=== PATIENT | female | born 1995 | race Caucasian/White ===

== ENCOUNTER 2024-07-26 09:01 | Outpatient (OUT) | payer MEDICAID, SELFPAY ==
--- NOTE | 2024-07-26 09:04 | US_ITS ---
[address] [address] Patient Name: PAMELA FRANCIS MRN: [id number] date: 1995 Sex: F Assigned Patient Location: [facility] Current Patient Location: [facility] Accession/Order Number: [id number] Exam Date: 07/26/2024 09:04 Report Date: 07/26/2024 10:34 At the request of: SHIRA OLVERA Procedure: US OB transvaginal EXAMINATION: US OB transvaginal HISTORY: MISSED MENSES COMPARISON: No relevant comparison available. FINDINGS: Transvaginal images Núñez intrauterine gestation Gestational sac: 4.09 cm, 9 weeks 3 days CRL: 2.39 cm, 9 weeks 1 day Yolk sac: 3.8 mm Heart rate: 174 beats minute Cervix: 4.6 cm. The uterus is normal, anteverted, anteflexed Identified in the posterior myometrium is a 1.4 x 0.8 x 1.3 cm area of hypoechogenicity The ovaries are normal Clinical age: 9 weeks 1 day Clinical JACQUIE: 02/27/2025 Ultrasound age: 9 weeks 1 day Ultrasound JACQUIE: 02/27/2025 US/US OB transvaginal IMPRESSION: 1.4 cm. perigestational hematoma Viable núñez intrauterine gestation measuring 9 weeks 1 day Electronically authenticated by: HALLE BELLE Date: 07/26/2024 10:34
== END 2024-07-26 09:02 | disposition home or self-care (01) ==
LOC: NOMS 09:02
PROVIDERS: Visit Provider Obstetrics & Gynecology
DX: Z34.91 Encounter for supervision of normal pregnancy, unspecified, first trimester (principal); Z3A.09 9 weeks gestation of pregnancy; N92.6 Irregular menstruation, unspecified
CPT/HCPCS: 76817

== ENCOUNTER 2024-09-23 21:41 | Outpatient (REF) | payer MEDICAID, SELFPAY ==
--- OUTSIDE RECORDS SUMMARY | 2024-09-23 21:45 | XMS_ITS | CCD ---
Author Organization [facility] Care Team Providers Care Rn On Site Name Role Phone DR SHIRA PASCAL Consulting Unavailable NAIDA, DR SILVA Attending Unavailable NAIDA, DR SILVA Admitting Unavailable VARSHA CABRERA, LA Pugh Primary Care Unavailable VARSHA CABRERA, LA Pugh Attending Unavailable VARSHA CABRERA, LA Pugh Attending Unavailable VARSHA CABRERA, LA Pugh Primary Care Unavailable VARSHA CABRERA, LA Pugh Attending Unavailable VARSHA CABRERA, LA Pugh Primary Care Unavailable FOUZIA, OBIE C Referring Unavailable VARSHA, LA Pugh Primary Care Unavailable VARSHA, LA Pugh Primary Care Unavailable SHIRA PASCAL Referring Unavailable SHIRA PASCAL Referring Unavailable VARSHA, LA Pugh Primary Care Unavailable SHIRA PASCAL Referring Unavailable VARSHA, LA Pugh Primary Care Unavailable Varsha CABRERA, La Pugh Primary Care Provider Minoo Solis Unavailable [phone] SHIRA PASCAL Attending Unavailable SHIRA PASCAL Attending Unavailable Allergies Allergy Classification Reported Allergen(s) Allergy Type Date of Onset Reaction(s) Facility (1 source) Penicillin; Translations: [penicillin] Drug Allergy [facility] Repository (6 sources) Penicillins; Translations: [PENICILLINS] Propensity to adverse reactions to drug (disorder) 7 Itching, Rash, Swelling [facility] Repository (2 sources) Penicillin G Drug Allergy 4 [facility] Medications Current Medications Medication Drug Class(es) Dates Sig (Normalized) Sig (Original) MV-Min-Fe Fum-FA-DHA ( 1 PO) (5 sources) MV-Min- Fe Fum-FA-DHA ( 1 PO) Take 1 each by mouth Daily Active Problems Problem Classification Problem Date Documented Date Episodic/Chronic Immunizations and screening for infectious disease (3 sources) Encounter for screening for human papillomavirus (HPV); Translations: [Exposure to sexually transmissible disorder] Onset: 09-01-2021 09-23-2024 Episodic Menstrual disorders (1 source) Irregular menstruation, unspecified; Translations: [Irregular menstruation, unspecified] Onset: 06-19-2024 Chronic Open wounds of extremities (1 source) Laceration without foreign body of left index finger without damage to nail, initial encounter; Translations: [Laceration without foreign body of left index finger without damage to nail, initial encounter] Onset: 06-18-2024 Episodic Other and delivery including normal (4 sources) Second trimester ; Translations: [Encounter for supervision of normal , unspecified, second trimester] 08-27-2024 Episodic Other screening for suspected conditions (not mental disorders or infectious disease) (6 sources) Encounter for screening for malignant neoplasm of cervix; Translations: [Patient encounter status] Onset: 08-25-2021 Episodic Residual codes; unclassified (2 sources) Gestation period, 13 weeks; Translations: [13 weeks gestation of ] 08-27-2024 Episodic Results Test Name Value Interpretation Reference Range Facility Urinalysis macro (dipstick) panel (U)on 09-23-2024 Bilirubin, UA Negative Negative - 4(70) +++ mg/dL [facility] Blood, UA Negative Negative - 50 Pa/mcL [facility] Clarity, UA Clear [facility] re Color, UA Yellow [facility] e Glucose, UA Negative Negative - 1999(110) ++++ mg/dL [facility] Interpretation and review of laboratory results Normal [facility] Ketones, UA Negative Negative - 160(16) ++++ mg/dL [facility] Leukocytes, UA Negative Negative - 500+++ Varinder/mcL [facility] Nitrite, UA Negative Negative - Positive [facility] pH, UA 6.5 5 - 9 [facility] Protein, UA Negative Negative - 1999(20) ++++ mg/dL [facility] Spec Grav, UA 1.02 1 - 1.03 [facility] Urobilinogen, UA 0.2 0.2 - 12 mg/dL [facility] CBC AND AUTO DIFFon 08-23-20 24 ABSOLUTE BASOPHIL 0.0 X10E9/L Normal 0[facility]0-0.2 [facility] Comment on above: Performed By: #### H A1C, CBCA, 5196-1, 26147-7, 02549-5, 53454-9, 8014-3, 20109-5 #### [facility] ([id number]) [address], [address] [place] [address] ABSOLUTE NEUTROPHIL 7.7 X10E9/L High 1.5-6.6 [facility] Comment on above: Performed By: #### H A1C, CBCA, 5196-1, 20997-3, 19015-8, 83296-1, 8014-3, 05922-6 #### [facility] ([id number]) [address], [address] [place] [address] Basophils/100 WBC (Bld) 0.3 % Normal [facility] Comment on above: Performed By: #### H A1C, CBCA, 5196-1, 20415-6, 41795-5, 01122-8, 8014-3, 30553-8 #### [facility] ([id number]) [address], [address] [place] [address] Eosinophils (Bld) [#/Vol] 0.1 10*3/uL Normal 0.0-0.4 [facility] Comment on above: Performed By: #### H A1C, CBCA, 5196-1, 97042-0, 84631-0, 51549-9, 8014-3, 86897-2 #### [facility] ([id number]) [address], [address] [place] [address] Eosinophils/100 WBC (Bld) 0.9 % Normal [facility] Comment on above: Performed By: #### H A1C, CBCA, 5196-1, 75617-9, 48305-7, 92360-2, 8014-3, 48057-5 #### [facility] ([id number]) [address], [address] [place] [address] Erythrocyte distribution width (RBC) [Ratio] 13.6 % Normal 11.5-15.0 [facility] Comment on above: Performed By: #### H A1C, CBCA, 5196-1, 78615-6, 79086-9, 45737-1, 8014-3, 09052-1 #### [facility] ([id number]) [address], [address] [place] [address] Hematocrit (Bld) [Volume fraction] 35.7 % Normal 35-47 [facility] Comment on above: Performed By: #### H A1C, CBCA, 5196-1, 52371-9, 75134-9, 22367-3, 8014-3, 73386-7 #### [facility] ([id number]) [address], [address] [place] [address] Hemoglobin (Bld) [Mass/Vol] 12.5 g/dL Normal 11.7-15.5 [facility] Comment on above: Performed By: #### H A1C, CBCA, 5196-1, 52276-4, 54604-9, 69198-1, 8014-3, 96298-6 #### [facility] ([id number]) [address], [address] [place] [address] Lymphocytes (Bld) [#/Vol] 1.7 10*3/uL Normal 1.0-3.5 [facility] Comment on above: Performed By: #### H A1C, CBCA, 5196-1, 99394-5, 83065-3, 58201-7, 8014-3, 13122-8 #### [facility] ([id number]) [address], [address] [place] [address] Lymphocytes/100 WBC (Bld) 16.9 % Normal [facility] Comment on above: Performed By: #### H A1C, CBCA, 5196-1, 84595-4, 26758-5, 69964-2, 8014-3, 06656-2 #### [facility] ([id number]) [address], [address] [place] [address] MCH (RBC) [Entitic mass] 31.8 pg Normal 27-34 [facility] Comment on above: Performed By: #### H A1C, CBCA, 5196-1, 59710-3, 48600-2, 43812-1, 8014-3, 32443-4 #### [facility] ([id number]) [address], [address] [place] [address] MCHC (RBC) [Mass/Vol] 35.1 g/dL Normal 32-36 [facility] Comment on above: Performed By: #### H A1C, CBCA, 5196-1, 20413-4, 08400-1, 00400-5, 4-3, 15361-8 #### [facility] ([id number]) [address], [address] [place] [address] MCV (RBC) [Entitic vol] 91 fL Normal 80-100 [facility] Comment on above: Performed By: #### H A1C, CBCA, 5196-1, 00775-7, 23365-9, 95475-7, 4-3, 71433-2 #### [facility] ([id number]) [address], [address] [place] [address] Monocytes (Bld) [#/Vol] 0.6 10*3/uL Normal 0-0.9 [facility] Comment on above: Performed By: #### H A1C, CBCA, 5196-1, 68452-0, 05951-3, 26590-0, 8014-3, 75201-1 #### [facility] ([id number]) [address], [address] [place] [address] Monocytes/100 WBC (Bld) 5.7 % Normal [facility] Comment on above: Performed By: #### H A1C, CBCA, 5196-1, 82863-6, 25336-2, 30679-4, 8014-3, 94421-0 #### [facility] ([id number]) [address], [facility] [address] [place] [address] Neutrophils/100 WBC (Bld) 76.2 % Normal [facility] Comment on above: Performed By: #### H A1C, CBCA, 5196-1, 80648-9, 70127-9, 03421-7, 8014-3, 70845-6 #### [facility] ([id number]) [address], [facility] [address] [place] [address] Platelet mean volume (Bld) [Entitic vol] 10.8 fL Normal 7-12 [facility] Comment on above: Performed By: #### H A1C, CBCA, 5196-1, 38435-7, 30479-8, 34952-8, 8014-3, 37355-1 #### [facility] ([id number]) [address] [address] [place] [address] Platelets (Bld) [#/Vol] 153 10*3/uL Normal 150-450 [facility] Comment on above: Performed By: #### H A1C, CBCA, 5196-1, 17771-9, 87863-8, 42891-1, 8014-3, 88876-0 #### [facility] ([id number]) [address], [facility] [address] [place] [address] RBC COUNT 3.94 X10E12/L Normal 3.80-5.20 [facility] Comment on above: Performed By: #### H A1C, CBCA, 5196-1, 70153-5, 22729-1, 32820-0, 8014-3, 11954-7 #### [facility] ([id number]) [address], [facility] [address] [place] [address] WBC (Bld) [#/Vol] 10.1 10*3/uL Normal 4.0-11.0 [facility] Comment on above: Performed By: #### H A1C, CBCA, 5196-1, 46839-2, 74477-9, 10049-3, 8014-3, 43061-9 #### [facility] ([id number]) [address], [address] [place] [address] DRUG SCREEN, URINEon 024 AMPHETAMINE/METHAMP Negative Normal NEG [facility] Comment on above: Result Comment: AMPH /METH screening cut off = 1000 ng/mL Performed By: #### 2 0415-6 #### [facility] ([id number]) [address], [address] [place] [address] BARBITURATES Negative Normal NEG [facility] Comment on above: Result Comment: Yamileth iturates screening cut off value = 200 ng/mL Performed By: #### 2 0415-6 #### [facility] ([id number]) [address], [address] [place] [address] BENZODIAZEPINES Negative Normal NEG [facility] Comment on above: Result Comment: [place] odiazepines screening cut off value = 200 ng/mL Performed By: #### 2 0415-6 #### [facility] ([id number]) [address], [address] [place] [address] CANNABINOIDS Negative Normal NEG [facility] Comment on above: Result Comment: Kristyn abinoids/THC screening cut off value = 50 ng/mL Performed By: #### 2 0415-6 #### [facility] ([id number]) [address], [address] [place] [address] COCAINE METABOLITE Negative Normal NEG [facility] Comment on above: Result Comment: Coca ine screening cut off value = 300 ng/mL Performed By: #### 2 0415-6 #### [facility] ([id number]) [address], [address] [place] [address] ECSTASY Negative Normal NEG [facility] Comment on above: Result Comment: Ecst asy screening cut off value = 500 ng/mL This report is intended for use in clinical monitoring or management of patients. Performed By: #### 2 0415-6 #### [facility] ([id number]) [address], [address] [place] [address] METHADONE Negative Normal NEG [facility] Comment on above: Result Comment: Meth adone screening cut off value = 300 ng/mL. Performed By: #### 2 0415-6 #### [facility] ([id number]) [address], [address] [place] [address] OPIATES Negative [facility] Comment on above: Result Comment: Opia sabino screening cut off value = 300 ng/mL NOTE: This test is used for the detection of codeine, hydrocodone (>1000 ng/mL), morphine and hydromorphone (>900 ng/mL) in urine. Performed By: #### 2 0415-6 #### [facility] ([id number]) [address], [address] [place] [address] OXYCODONE Negative [facility] Comment on above: Result Comment: Oxyc odone screening cut off value = 300 ng/mL NOTE: This test is used for the detection of oxycodone and oxymorphone in urine. Performed By: #### 2 0415-6 #### [facility] ([id number]) [address], [address] [place] [address] PHENCYCLIDINE Negative Normal [facility] Comment on above: Result Comment: Phen cyclidine screening cut off value = 25 ng/mL Performed By: #### 2 0415-6 #### [facility] ([id number]) [address], [address] [place] [address] HBV surface Ag IA Qlon 08-23 HEPATITIS B SURF AG Negative Normal NEG [facility] Comment on above: Performed By: #### H A1C, CBCA, 5196-1, 99307-8, 42455-6, 02943-5, 8014-3, 19187-3 #### [facility] ([id number]) [address], [address] [place] [address] HCG ( test) Ql (U)o n 08-23-2024 Beta HCG ( test) Ql (U) Positive Abnormal NEG [facility] Comment on above: Performed By: #### 2 106-3 #### [facility] ([id number]) [address] [facility], [address] [place] [address] HCG.beta subunit IA 3rd IS Q non 08-23-2024 HCG.beta subunit Qn 818142 m[IU]/mL Normal [facility] Comment on above: Result Comment: NEW REFERENCE RANGE WEEKS (SINCE LMP) MIU/mL 3 WEEKS 5 - 50 4 WEEKS 5 - 426 5 WEEKS 18 - 7,340 6 WEEKS 1,080 - 56,500 7-8 WEEKS 7,650 - 229,000 9-12 WEEKS 25,700 - 288,000 13-16 WEEKS 13,300 - 254,000 17-24 WEEKS 4,060 - 165,400 25-40 WEEKS 3,640 - 117,000 MALES AND NON- FEMALES - <5 MIU/mL This test has been FDA approved for use in only. Elevated levels are not necessarily diagnostic for trophoblastic or nontrophoblastic neoplasms. Performed By: #### 2 0415-6 #### [facility] ([id number]) [address], [address] [place] [address] HCV Ab IA Qlon 08-23-2024 ANTI HCV W/PCR REFLX Non-Reactive Normal NRCT Pr [facility] Comment on above: Result Comment: If recent infection suspected, recommend repeat testing (>2 months). Ppkzpx-ei-yxfnky ratio is <0.80. Performed By: #### H A1C, CBCA, 5196-1, 08098-1, 02449-3, 74023-7, 8014-3, 64178-6 #### [facility] ([id number]) [address] [place] [address], [address] [place] [address] HGB A1C (GLYCO-HGB)on 2023 Glucose [Mass/Vol] 91 mg/dL Normal [facility] Comment on above: Performed By: #### H A1C, CBCA, 5196-1, 32520-2, 71009-2, 86206-4, 8014-3, 53987-2 #### [facility] ([id number]) [address] [place] [address], [facility] [address] [place] [address] HbA1c (Bld) [Mass fraction] 4.8 % Normal 4.4-5.6 [facility] Comment on above: Result Comment: NOTE ADA Guidelines Result HgbA1c Normal : less than 5.7 % Prediabetes : 5.7 % to 6.4 % Diabetes : > 6.4 % Use with caution in patients with abnormal hemoglobin variants as the half-life of red blood cells and in vivo glycation rates are affected. Performed By: #### H A1C, CBCA, 5196-1, 15504-3, 23895-2, 05582-5, 8014-3, 35745-5 #### [facility] ([id number]) [address] [place] [address], [address] [place] [address] HIV 1+2 Ab+HIV1 p24 Ag IA Ql on 08-23-2024 HIV 1 and 2 Ab/Ag Screen Non-Reactive Normal NRCT [facility] Comment on above: Result Comment: This information has been disclosed to you from confidential records protected from disclosure by state law. You shall make no further disclosure of this information without the specific, written and informed release of the individual to whom it pertains, or as otherwise permitted by state law. A general authorization for the release of medical or other information is not sufficient for the purpose of the release of HIV test results or diagnoses. Performed By: #### H A1C, CBCA, 5196-1, 01486-8, 88441-7, 80517-7, 8014-3, 84397-6 #### [facility] ([id number]) [address] [place] [address], [address] [place] [address] Rubella virus IgG Qn (S)on 1 RUBELLA IgG 16 IU/mL Normal [facility] Comment on above: Result Comment: Interpretation-------- <8 NEGATIVE-considered Not Immune 8-9 EQUIVOCAL-consider retesting with new specimen >9 POSITIVE-considered Immune Performed By: #### 2 0415-6 #### [facility] ([id number]) [address] [place] [address], [facility] [address] [place] [address] T. pallidum IgG+IgM IA Ql (S )on 08-23-2024 Syphilis Total <0.2 Normal 0.0-0.8 [facility] Comment on above: Result Comment: NON REACTIVE No serologic evidence of infection to Treponema pallidum (syphilis). Repeat testing may be considered in patients with suspected acute or primary syphilis in 2 to 4 weeks. Performed By: #### 2 0415-6 #### [facility] ([id number]) [address] [place] [address], [address] [place] [address] URINALYSISon 08-23-2024 Amorphous sediment LM Ql (Urine sed) PRESENT Abnormal NONE [facility] Comment on above: Performed By: #### U A #### [facility] ([id number]) [address] [place] [address], [facility] [address] [place] [address] Bilirubin Ql (U) Negative Normal NEG [facility] Comment on above: Performed By: #### U A #### [facility] ([id number]) [address], [address] [place] [address] BLOOD/HGB Negative Normal NEG [facility] Comment on above: Performed By: #### U A #### [facility] ([id number]) [address], [address] [place] [address] Color (U) ORANGE Abnormal YELLOW [facility] Comment on above: Performed By: #### U A #### [facility] ([id number]) [address], [address] [place] [address] Glucose Ql (U) Negative Normal NEG [facility] Comment on above: Performed By: #### U A #### [facility] ([id number]) [address], [address] [place] [address] Ketones Ql (U) Negative Normal NEG [facility] Comment on above: Performed By: #### U A #### [facility] ([id number]) [address], [address] [place] [address] Leukocyte esterase Test strip Ql (U) Negative Normal NEG [facility] Comment on above: Performed By: #### U A #### [facility] ([id number]) [address], [address] [place] [address] Nitrite Ql (U) Negative Normal NEG [facility] Comment on above: Performed By: #### U A #### [facility] ([id number]) [address], [address] [place] [address] pH (U) 6.5 [pH] Normal 5.0-8.5 [facility] Comment on above: Performed By: #### U A #### [facility] ([id number]) [address], [address] [place] [address] Protein Ql (U) Trace Abnormal NEG [facility] Comment on above: Performed By: #### U A #### [facility] ([id number]) [address] [facility] [address] [place] [address] R.B.CELLS 1 /hpf Normal 0-5 [facility] Comment on above: Performed By: #### U A #### [facility] ([id number]) [address] [place] [address] [address] [place] [address] Specific gravity (U) [Rel density] 1.023 Normal 1.003-1.035 [facility] Comment on above: Performed By: #### U A #### [facility] ([id number]) [address] [facility] [address] [place] [address] SQUAMOUS EPITHELIUM 15 /hpf High 0-5 [facility] Comment on above: Performed By: #### U A #### [facility] ([id number]) [address] [place] [address] [address] [place] [address] TURBIDITY CLOUDY Abnormal CLEAR [facility] Comment on above: Performed By: #### U A #### [facility] ([id number]) [address] [facility] [address] [place] [address] Urobilinogen (U) [Mass/Vol] mg/dL Normal <1.1 [facility] Comment on above: Performed By: #### U A #### [facility] ([id number]) [address] [facility] [address] [place] [address] W.B.CELLS 1 /hpf Normal 0-5 [facility] Comment on above: Performed By: #### U A #### [facility] ([id number]) [address] [facility] [address] [place] [address] URINE CULTUREon 08-23-2024 Bacteria identified Cx Nom (U) CULTURE RESULTS 10-50,000 ORGANISMS/mL NORMAL UROGENITAL FRANCOISE Normal [facility] Comment on above: Performed By: #### 2 0415-6 #### [facility] ([id number]) [address] [place] [address], [address] [place] [address] Outside Recordson 07-30-2024 Outside Records [id number] Normal [facility] HCG.beta subunit IA 3rd IS Q non 06-21-2024 HCG.beta subunit Qn 647 m[IU]/mL Normal [facility] Comment on above: Result Comment: NEW REFERENCE RANGE WEEKS (SINCE LMP) MIU/mL 3 WEEKS 5 - 50 4 WEEKS 5 - 426 5 WEEKS 18 - 7,340 6 WEEKS 1,080 - 56,500 7-8 WEEKS 7,650 - 229,000 9-12 WEEKS 25,700 - 288,000 13-16 WEEKS 13,300 - 254,000 17-24 WEEKS 4,060 - 165,400 25-40 WEEKS 3,640 - 117,000 MALES AND NON- FEMALES - <5 MIU/mL This test has been FDA approved for use in only. Elevated levels are not necessarily diagnostic for trophoblastic or nontrophoblastic neoplasms. Performed By: #### 2 0415-6 #### [facility] ([id number]) [address] [place] [address], [address] [place] [address] HCG.beta subunit IA 3rd IS Q non 06-19-2024 HCG.beta subunit Qn 339 m[IU]/mL Normal [facility] Comment on above: Result Comment: NEW REFERENCE RANGE WEEKS (SINCE LMP) MIU/mL 3 WEEKS 5 - 50 4 WEEKS 5 - 426 5 WEEKS 18 - 7,340 6 WEEKS 1,080 - 56,500 7-8 WEEKS 7,650 - 229,000 9-12 WEEKS 25,700 - 288,000 13-16 WEEKS 13,300 - 254,000 17-24 WEEKS 4,060 - 165,400 25-40 WEEKS 3,640 - 117,000 MALES AND NON- FEMALES - <5 MIU/mL This test has been FDA approved for use in only. Elevated levels are not necessarily diagnostic for trophoblastic or nontrophoblastic neoplasms. Performed By: #### 2 0415-6 #### [facility] ([id number]) [address] [facility], [address] [place] [address] XR FINGER LT 2ND DIGIT MIN 2 VWSon 06-18-2024 XR FINGER LT 2ND DIGIT MIN 2 VWS XR FINGER LT 2ND DIGIT MIN 2 VWS Second digit left hand HISTORY: Injury and pain COMPARISON: None FINDINGS: No acute fractures or dislocations are seen. There are no osteolytic or osteoblastic. IMPRESSION: Negative second digit left hand Finalized by Nichole Zaragoza DO on 06/18/2024 4:14 PM Normal [facility] Ambulatory Patient Summaryon 03-08-2024 Ambulatory Patient Summary [address], [address] - Visit Summary For ALLA FRANCIS Age: 28 years Sex: FEMALE : 1995 Address: [address] [place] [address], [id number] Home: Work: -- Mobile: -- Primary Care Provider: LA MADDOX MD Race: White Ethnicity: Not or Language: Yemeni Health Plan: 1?MEDICAID ANTHEM ODM Reason for Visit: Pt. comes in with complaints of right sided lower back and leg pain Prescription Information: If you have been given a prescription for narcotics, seek immediate medical attention if you have any difficulty breathing or any sudden status changes such as confusion and sleepiness. If you or anyone you know is experiencing suicidal thoughts, mental health, alcohol and/or drug addiction problems; contact the [facility] 29/05 Crisis Hotline -Text 4HOPE to 946427. Follow-Up Information With: Address: When: VARSHA CABRERA, [place] Pugh [facility] [address] [facility] [address] [address]/ [address] [place] [address] , only if needed Future Appointments No Future Appointments Scheduled Future Orders No future orders Additional Goals and Instructions: Vitals and Measurements this Visit (last charted value for your 03/08/2024 visit) Vital Signs This Visit Peripheral Pulse Rate: 78 bpm Pulse Site: Pulse Oximetry Systolic Blood Pressure: 126 mmHg Diastolic Blood Pressure: 74 mmHg Cuff Location: Left arm SpO2: 97 % Measurements This Visit Height/Length Measured: 165 cm Height/Length Measured (inches): 64.96 in Weight Measured: 74 kg Weight Measured (lbs): 163.142 lb Weight Dosin.000 kg BSA: 1.84 m2 Body Mass Index: 27.18 kg/m2 [place] Body Weight Calculated: 56.909 kg BSA Measured: 1.84 m2 Diagnoses This Visit Back pain (M54.9) Laboratory or Other Results This Visit (last charted value for your 03/08/2024 visit) No Laboratory or Other Results This Visit Medications and Immunizations Administered During This Visit No medication administered during this visit All Known Current Prescriptions and Reported Medications New Prescriptions this Visit predniSONE 20 mg oral tablet (predniSONE) Take 1 tab(s)(20 Milligram) Oral (given by mouth) 2 times a day (scheduled) for 7 Days, 0 refills authorized Instructions: with food or milk Prescriptions No previous prescriptions documented Home Medications No reported medications documented Radicular Pain Radicular pain is a type of pain that spreads from your back or neck along a spinal nerve. Spinal nerves are nerves that leave the spinal cord and go to the muscles. Radicular pain is sometimes called radiculopathy, radiculitis, or a pinched nerve. When you have this type of pain, you may also have weakness, numbness, or tingling in the area of your body that is supplied by the nerve. The pain may feel sharp and burning. Depending on which spinal nerve is affected, the pain may occur in the: ? Neck area (cervical radicular pain). You may also feel pain, numbness, weakness, or tingling in the arms. ? Mid-spine area (thoracic radicular pain). You would feel this pain in the back and chest. This type is rare. ? Lower back area (lumbar radicular pain). You would feel this pain as low back pain. You may feel pain, numbness, weakness, or tingling in the buttocks or legs. Sciatica is a type of lumbar radicular pain that shoots down the back of the leg. Radicular pain occurs when one of the spinal nerves becomes irritated or squeezed (compressed). It is often caused by something pushing on a spinal nerve, such as one of the bones of the spine (vertebrae) or one of the round cushions between vertebrae (intervertebral disks). This can result from: ? An injury. ? Wear and tear or aging of a disk. ? The growth of a bone spur that pushes on the nerve. Radicular pain often goes away when you follow instructions from your health care provider for relieving pain at home. How is this treated? Treatment may depend on the cause of the condition and may include: ? Working with a physical therapist. ? Taking pain medicine. ? Applying heat or ice or both to the affected areas. ? Doing stretches to improve flexibility. ? Having surgery. This may be needed if other treatments do not help. Different types of surgery may be done depending on the cause of this condition. Follow these instructions at home: Managing pain ? If directed, put ice on the affected area. To do this: ? Put ice in a plastic bag. ? Place a towel between your skin and the bag. ? Leave the ice on for 20 minutes, 2?3 times a day. ? Remove the ice if your skin turns bright red. This is very important. If you cannot feel pain, heat, or cold, you have a greater risk (more content not included)... Normal [facility] Patient Handouton 03-08-2024 Patient Handout Orthopedics Radicular Pain Radicular pain is a type of pain that spreads from your back or neck along a spinal nerve. Spinal nerves are nerves that leave the spinal cord and go to the muscles. Radicular pain is sometimes called radiculopathy, radiculitis, or a pinched nerve. When you have this type of pain, you may also have weakness, numbness, or tingling in the area of your body that is supplied by the nerve. The pain may feel sharp and burning. Depending on which spinal nerve is affected, the pain may occur in the: ? Neck area (cervical radicular pain). You may also feel pain, numbness, weakness, or tingling in the arms. ? Mid-spine area (thoracic radicular pain). You would feel this pain in the back and chest. This type is rare. ? Lower back area (lumbar radicular pain). You would feel this pain as low back pain. You may feel pain, numbness, weakness, or tingling in the buttocks or legs. Sciatica is a type of lumbar radicular pain that shoots down the back of the leg. Radicular pain occurs when one of the spinal nerves becomes irritated or squeezed (compressed). It is often caused by something pushing on a spinal nerve, such as one of the bones of the spine (vertebrae) or one of the round cushions between vertebrae (intervertebral disks). This can result from: ? An injury. ? Wear and tear or aging of a disk. ? The growth of a bone spur that pushes on the nerve. Radicular pain often goes away when you follow instructions from your health care provider for relieving pain at home. How is this treated? Treatment may depend on the cause of the condition and may include: ? Working with a physical therapist. ? Taking pain medicine. ? Applying heat or ice or both to the affected areas. ? Doing stretches to improve flexibility. ? Having surgery. This may be needed if other treatments do not help. Different types of surgery may be done depending on the cause of this condition. Follow these instructions at home: Managing pain ? If directed, put ice on the affected area. To do this: ? Put ice in a plastic bag. ? Place a towel between your skin and the bag. ? Leave the ice on for 20 minutes, 2?3 times a day. ? Remove the ice if your skin turns bright red. This is very important. If you cannot feel pain, heat, or cold, you have a greater risk of damage to the area. ? If directed, apply heat to the affected area as often as told by your health care provider. Use the heat source that your health care provider recommends, such as a moist heat pack or a heating pad. ? Place a towel between your skin and the heat source. ? Leave the heat on for 20?30 minutes. ? Remove the heat if your skin turns bright red. This is especially important if you are unable to feel pain, heat, or cold. You have a greater risk of getting burned. Activity ? Do not sit or rest in bed for long periods of time. ? Try to stay as active as possible. Ask your health care provider what type of exercise or activity is best for you. ? Avoid activities that make your pain worse, such as bending and lifting. ? You may have to avoid lifting. Ask your health care provider how much you can safely lift. ? Practice using proper technique when lifting items. Proper lifting technique involves bending your knees and rising up. ? Do strength and pnphc-zo-ukqhxt exercises only as told by your health care provider or physical therapist. General instructions ? Take ghbq-swq-lzxltso and prescription medicines only as told by your health care provider. ? Pay attention to any changes in your symptoms. ? Keep all follow-up visits. This is important. Contact a health care provider if: ? Your pain and other symptoms get worse. ? Your pain medicine is not helping. ? Your pain has not improved after a few weeks of home care. ? You have a fever. Get help right away if: ? You have severe pain, weakness, or numbness. ? You have difficulty with bladder or bowel control. Summary ? Radicular pain is a type of pain that spreads from your back or neck along a spinal nerve. ? When you have radicular pain, you may also have weakness, numbness, or tingling in the area of your body that is supplied by the nerve. ? The pain may feel sharp or burning. ? Radicular pain may be treated with ice, heat, medicines, or physical therapy. This information is not intended to replace advice given to you by your health care provider. Make sure you discuss any questions you have with your health care provider. Document Revised: 04/28/2022 Document Reviewed: 04/28/2022 Elsevier Patient Education ? 2022 Quantitative Medicine. [facility] Ambulatory Patient Summary 01-18-2024 Ambulatory Patient Summary [facility] [address] [facility], [facility], [address] - Visit Summary For ALLA FRANCIS Age: 28 years Sex: FEMALE : 1995 Address: [address] [place] [address], [facility] Home: Work: -- Mobile: -- Primary Care Provider: LA MADDOX MD Race: White Ethnicity: Not or Language: Yemeni Health Plan: 1?MEDICAID ANTHEM ODM Reason for Visit: Pt. comes in with complaints of a sore throat / body aches Prescription Information: If you have been given a prescription for narcotics, seek immediate medical attention if you have any difficulty breathing or any sudden status changes such as confusion and sleepiness. If you or anyone you know is experiencing suicidal thoughts, mental health, alcohol and/or drug addiction problems; contact the [facility] 29/05 Crisis Hotline -Text 4HOPE to 511286. Follow-Up Information With: Address: When: LA MADDOX MD [facility] [address] [facility]/ [address] [place] [address] , only if needed Future Appointments No Future Appointments Scheduled Future Orders No future orders Additional Goals and Instructions: Vitals and Measurements this Visit (last charted value for your 01/18/2024 visit) Vital Signs This Visit Temperature Temporal: 37.8 DegC Measurements This Visit Height/Length Measured: 165 cm Height/Length Measured (inches): 64.96 in Weight Measured: 75 kg Weight Measured (lbs): 165.347 lb Weight Dosin.000 kg Body Mass Index: 27.55 kg/m2 [place] Body Weight Calculated: 56.909 kg BSA Measured: 1.85 m2 Diagnoses This Visit Viral URI (J06.9) Laboratory or Other Results This Visit (last charted value for your 01/18/2024 visit) Chemistry 01/18/2024 11:23 AM Influenza B POCT: Negative Influenza A POCT: Negative COVID-19 Testing 01/18/2024 11:23 AM Employed in healthcare?: No Symptomatic as defined by CDC?: Yes Date of onset (Lab):01/19/2024 Hospitalized due to COVID-19?: No In ICU?: No Group care resident?: No status?: Unknown SARS-CoV-2 (COVID-19) Ag (BD Veritor): Not Detected Medications and Immunizations Administered During This Visit No medication administered during this visit All Known Current Prescriptions and Reported Medications New Prescriptions this Visit No new prescriptions for this visit Prescriptions escitalopram 10 mg oral tablet (escitalopram) Instructions: Take 1 tablet by mouth once daily Home Medications No reported medications documented Cough, Adult Coughing is a reflex that clears your throat and your airways (respiratory system). Coughing helps to heal and protect your lungs. It is normal to cough occasionally, but a cough that happens with other symptoms or lasts a long time may be a sign of a condition that needs treatment. An acute cough may only last 2?3 weeks, while a chronic cough may last 8 or more weeks. Coughing is commonly caused by: ? Infection of the respiratory systemby viruses or bacteria. ? Breathing in substances that irritate your lungs. ? Allergies. ? Asthma. ? Mucus that runs down the back of your throat (postnasal drip). ? Smoking. ? Acid backing up from the stomach into the esophagus (gastroesophageal reflux). ? Certain medicines. ? Chronic lung problems. ? Other medical conditions such as heart failure or a blood clot in the lung (pulmonary embolism). Follow these instructions at home: Medicines ? Take zrxv-tjj-jdaflwt and prescription medicines only as told by your health care provider. ? Talk with your health care provider before you take a cough suppressant medicine. Lifestyle ? Avoid cigarette smoke. Do not use any products that contain nicotine or tobacco, such as cigarettes, e-cigarettes, and chewing tobacco. If you need help quitting, ask your health care provider. ? Drink enough fluid to keep your urine pale yellow. ? Avoid caffeine. ? Do not drink alcohol if your health care provider tells you not to drink. General instructions ? Pay close attention to changes in your cough. Tell your health care provider about them. ? Always cover your mouth when you cough. ? Avoid things that make you cough, such as perfume, candles, cleaning products, or campfire or tobacco smoke. ? If the air is dry, use a cool mist vaporizer or humidifier in your bedroom or your home to help loosen secretions. ? If your cough is worse at night, try to sleep in a semi-upright position. ? Rest as needed. ? Keep all follow-up visits as told by your health care provider. This is important. Contact a health care provider if you: ? Have new symptoms. ? Cough up pus. ? Have a cough that does not get better after 2?3 weeks or gets worse. ? Cannot control your cough with cough de la cruz (more content not included)... Normal [facility] Patient Handouton 01-18-2024 Patient Handout ENT Cough, Adult Coughing is a reflex that clears your throat and your airways (respiratory system). Coughing helps to heal and protect your lungs. It is normal to cough occasionally, but a cough that happens with other symptoms or lasts a long time may be a sign of a condition that needs treatment. An acute cough may only last 2?3 weeks, while a chronic cough may last 8 or more weeks. Coughing is commonly caused by: ? Infection of the respiratory systemby viruses or bacteria. ? Breathing in substances that irritate your lungs. ? Allergies. ? Asthma. ? Mucus that runs down the back of your throat (postnasal drip). ? Smoking. ? Acid backing up from the stomach into the esophagus (gastroesophageal reflux). ? Certain medicines. ? Chronic lung problems. ? Other medical conditions such as heart failure or a blood clot in the lung (pulmonary embolism). Follow these instructions at home: Medicines ? Take psha-bhm-gsuvqai and prescription medicines only as told by your health care provider. ? Talk with your health care provider before you take a cough suppressant medicine. Lifestyle ? Avoid cigarette smoke. Do not use any products that contain nicotine or tobacco, such as cigarettes, e-cigarettes, and chewing tobacco. If you need help quitting, ask your health care provider. ? Drink enough fluid to keep your urine pale yellow. ? Avoid caffeine. ? Do not drink alcohol if your health care provider tells you not to drink. General instructions ? Pay close attention to changes in your cough. Tell your health care provider about them. ? Always cover your mouth when you cough. ? Avoid things that make you cough, such as perfume, candles, cleaning products, or campfire or tobacco smoke. ? If the air is dry, use a cool mist vaporizer or humidifier in your bedroom or your home to help loosen secretions. ? If your cough is worse at night, try to sleep in a semi-upright position. ? Rest as needed. ? Keep all follow-up visits as told by your health care provider. This is important. Contact a health care provider if you: ? Have new symptoms. ? Cough up pus. ? Have a cough that does not get better after 2?3 weeks or gets worse. ? Cannot control your cough with cough suppressant medicines and you are losing sleep. ? Have pain that gets worse or pain that is not helped with medicine. ? Have a fever. ? Have unexplained weight loss. ? Have night sweats. Get help right away if: ? You cough up blood. ? You have difficulty breathing. ? Your heartbeat is very fast. These symptoms may represent a serious problem that is an emergency. Do not wait to see if the symptoms will go away. Get medical help right away. Call your local emergency services (911 in the [place] Do not drive yourself to the hospital. Summary ? Coughing is a reflex that clears your throat and your airways. It is normal to cough occasionally, but a cough that happens with other symptoms or lasts a long time may be a sign of a condition that needs treatment. ? Take muyu-qgt-qverovk and prescription medicines only as told by your health care provider. ? Always cover your mouth when you cough. ? Contact a health care provider if you have new symptoms or a cough that does not get better after 2?3 weeks or gets worse. This information is not intended to replace advice given to you by your health care provider. Make sure you discuss any questions you have with your health care provider. Document Revised: 11/11/2019 Document Reviewed: 11/11/2019 [employer] Patient Education ? 2022 Quantitative Medicine. [facility] Outside Recordson 09-25-2023 Outside Records [id number] [facility] PAP ACOG PANEL 2: 21 to 29on 08-30-2021 . . Normal [facility] Comment on above: Performed By: #### [id number] #### [facility] [address] [place] [address] Dr. Jalyn Medrano Age Gdln ACOG Testing 21-29 [facility] Comment on above: Performed By: #### [id number] #### [facility] [address] [place] [address] Dr. Jalyn Medrano DIAGNOSIS: Comment Normal [facility] Comment on above: Result Comment: NEGA TIVE FOR INTRAEPITHELIAL LESION OR MALIGNANCY. Performed By: #### [id number] #### [facility] [address] [place] [address] Dr. Jalyn Medrano Methodology: Comment [facility] Comment on above: Result Comment: This liquid based ThinPrep(R) pap test was screened with the use of an image guided system. Performed By: #### [id number] #### [facility] [address] [place] [address] Dr. Jalyn Medrano Note: Comment [facility] Comment on above: Result Comment: The Pap smear is a screening test designed to aid in the detection of premalignant and malignant conditions of the uterine cervix. It is not a diagnostic procedure and should not be used as the sole means of detecting cervical cancer. Both false-positive and false-negative reports do occur. . Performed By: #### [id number] #### [facility] [address] [place] [address] Dr. Jalyn Medrano Performed by: Comment Normal [facility] Comment on above: Result Comment: Dorothea Francis, [employer] (ASCP) Performed By: #### [id number] #### [facility] [address] [place] [address] Dr. Jalyn Medrano Reflex Criteria: Comment [facility] Comment on above: Result Comment: The HPV DNA reflex criteria were not met with this specimen result therefore, no HPV testing was performed. . Performed By: #### [id number] #### [facility] [address] [place] [address] Dr. Jalyn Medrano Specimen adequacy: Comment Normal [facility] Comment on above: Result Comment: Sati sfactory for evaluation. Endocervical and/or squamous metaplastic cells (endocervical component) are present. Performed By: #### [id number] #### [facility] [address] [place] [address] Dr. Jalyn Medrano Vital Signs Date Time Vital Sign Value Performing Clinician Faci lity 09-23-2024 09:55-0500 Body weight 76.66 kg Shira Naida DO Work Phone: [facility] 09-23-2024 09:55-0500 Diastolic blood pressure 68 mm[Hg] Shira Naida DO Work Phone: [facility] 09-23-2024 09:55-0500 Systolic blood pressure 118 mm[Hg] Shira Naida DO Work Phone: [facility] 08-27-2024 11:12-0400 Body weight 75.66 kg Shira Naida DO Work Phone: [facility] 08-27-2024 11:12-0400 Diastolic blood pressure 64 mm[Hg] Shira Naida DO Work Phone: [facility] 08-27-2024 11:12-0400 Systolic blood pressure 112 mm[Hg] Shira Naida DO Work Phone: [facility] Healthcare Encounters Encounter Date Encounter Type Care Provider Facility Start: 09-23-2024 End: 09-23-2024 Office outpatient visit 15 minutes Shira Naida DO Work Phone: [facility] Comment on above: Well woman exam with routine gynecological exam; Screening, , for anatomic survey; Second trimester ; Exposure to STD Start: 09-23-2024 End: 09-23-2024 Patient encounter procedure Shira Naida DO Work Phone: [facility] Healthcare Start: 08-27-2024 End: 08-27-2024 Bamboo flowsheet Shira Naida DO Work Phone: [facility] Start: 08-27-2024 End: 08-27-2024 Bamboo flowsheet Shira Naida DO Work Phone: [facility] Start: 08-27-2024 End: 08-27-2024 Office outpatient visit 15 minutes Shira Naida DO Work Phone: [facility] Comment on above: Second trimester pre gnancy; 13 weeks gestation of Start: 08-27-2024 End: 08-27-2024 ambulatory SHIRA NAIDA Not Available Start: 08-23-2024 End: 08-23-2024 ambulatory SHIRA R NAIDA [facility] Start: 07-26-2024 End: 07-26-2024 ambulatory SHIRA NAIDA Not Available Start: 06-21-2024 End: 06-21-2024 ambulatory SHIRA R NAIDA [facility] Start: 06-19-2024 End: 06-19-2024 ambulatory [facility] Start: 06-18-2024 End: 06-18-2024 ambulatory OBIE FRAGOSO [facility] Start: 03-08-2024 End: 03-08-2024 ambulatory LA MADDOX MD Facility: [facility] Start: 02-07-2024 End: 02-07-2024 ambulatory SHIRA PASCAL Not Available Start: 01-18-2024 End: 01-18-2024 ambulatory LA MADDOX MD Facility: [facility] Start: 09-19-2023 End: 09-19-2023 ambulatory LA MADDOX MD Facility: [facility] Start: 08-25-2021 End: 08-25-[address] SHIRA PASCAL Facility: Procedures Date Procedure Procedure Detail Performing Clinician Start: 09-23-2024 Urnls dip stick/tabl et rgnt non-auto w/o micrscp Shira Naida DO Work Phone: Plan of Treatment Date Care Activity Detail Author Start: 10-22-2024 End: 10-22-2024 Patient encounter procedure 10/22/2024 10:30 AM EST Routine [facility] [address] [place] [id number] Dorothea Bangura PA [address] [place] [address] [facility] Start: 10-14-2024 End: 10-14-2024 Professional / ancillary services management 10/14/2024 11:00 AM EST Ancillary Procedure [facility] [address] [facility] [place] [id number] [facility] Start: 09-23-2024 End: 10-23-2024 Alpha fetoprotein, maternal Alpha fetoprotein, maternal Lab Routine Screening, , for anatomic survey Expected: 09/23/2024 (Approximate), Expires: 10/23/2024 [facility] Comment on above: Expected: 09/23/2024 (Approximate), Expires: 10/23/2024 Start: 09-23-2024 End: 09-23-2025 US for US OB ANATOMY SINGLE W US OB CERVICAL LENGTH Imaging Routine Screening, , for anatomic survey Expected: 09/23/2024 (Approximate), Expires: 09/23/2025 [facility] Comment on above: Expected: 09/23/2024 (Approximate), Expires: 09/23/2025 Start: 09-23-2024 End: 09-23-2024 Patient encounter procedure 09/23/2024 9:30 AM EST Routine [facility] [address] [facility] [place] [id number] Shira Pascal, DO [address] [place] [address] [facility] Start: 08-27-2024 End: 08-27-2024 Patient encounter procedure 08/27/2024 10:50 AM EDT Routine [facility] [address] [place] [id number] Shira Pascal, DO [address] [place] [place] [address] Arrived [facility] Comment on above: Arrived Start: 07-07-2024 Influenza vaccination Influenza Vacc ine (#1) [facility] Start: 2024 Screening for malign ant neoplasm of cervix [facility] Start: 2015 Screening for malign ant neoplasm of cervix Pap Smear [facility] CHLAMYDIA TRACHOMATI S (GENITO/STI) CHLAMYDIA TRACHOMATIS (GENITO/STI) Lab Routine Exposure to STD Ordered: 09/23/2024 [facility] Comment on above: Ordered: 09/23/2024 Cytology Cervical or vaginal smear or scraping study Pap Smear Pathology and Cytology Routine Well woman exam with routine gynecological exam Ordered: 09/23/2024 [facility] Work Phone: Comment on above: Ordered: 09/23/2024 Human papilloma viru s DNA [Presence] in Unspecified specimen by Probe with amplification HPV DNA probe, amplified Microbiology Routine Well woman exam with routine gynecological exam Ordered: 09/23/2024 [facility] Comment on above: Ordered: 09/23/2024 Neisseria gonorrhoea e DNA [Presence] in Unspecified specimen by MICHELLE with probe detection Neisseria gonorrhea DNA probe, direct Lab Routine Exposure to STD Ordered: 09/23/2024 [facility] Comment on above: Ordered: 09/23/2024 SURESWAB(R) ADVANCED VAGINITIS PLUS, TMA SURESWAB(R) ADVANCED VAGINITIS PLUS, TMA Pathology and Cytology Routine Exposure to STD Ordered: 09/23/2024 [facility] Comment on above: Ordered: 09/23/2024 Payers Date Payer Category Payer Medicaid [employer] [place] [id number] 2022 Medicaid [id number] 1995 Unknown [id number] 1994 Unknown [id number] 1994 Unknown [id number] [id number] 1994 Unknown [id number] 1994 Unknown [id number] 2.16.840.1.605004.3.579.2.1286 1994 Unknown [id number] 2.16.840.1.779218.3.579.2.1286 1994 Unknown [id number] 2.16.840.1.293525.3.579.2.1286 1994 Unknown [id number] 2.16.840.1.034281.3.579.2.6 1994 Unknown [id number] 2.16.840.1.096059.3.579.2.9 1994 Unknown [id number] 2.16.840.1.465504.3.579.2.9 1994 Unknown [id number] [id number] 1959 Unknown [id number] Social History Date Type Detail Facility Tobacco smoking stat [facility] Tobacco smoking consumption unknown [facility] Start: 06-06-2024 [facility] Start: 1995 Sex assigned at Not on file [facility] Gender identity Not [facility] History of Present illness Narrative 09-23-2024 Ajnana Goins LPN - 09/23/2024 9:30 AM EST Note Date & Type Note Facility 09-23-2024 History of Presen t illness Narrative Reason for Appointment: Patient ID: Alla Francis is a 29 y.o. female who presents for Routine Visit Patient presents today for Annual Exam. and Return OB appointment. MEDICATIONS Current Outpatient Medications Medication Instructions MV-Min-Fe Fum-FA-DHA ( 1 PO) 1 each, Oral, Daily ALLERGIES Allergies Allergen Reactions Penicillins Itching, Rash and Swelling Penicillin G PROBLEMS Active Ambulatory Problems Diagnosis Date Noted No Active Ambulatory Problems Resolved Ambulatory Problems Diagnosis Date Noted No Resolved Ambulatory Problems No Additional Past Medical History HISTORY PAST MEDICAL HISTORY SOCIAL HISTORY No past medical history on file. Social History Tobacco Use Smoking status: Not on file Smokeless tobacco: Not on file Substance Use Topics Alcohol use: Not on file Drug use: Not on file FAMILY HISTORY No family history on file. SURGICAL HISTORY No past surgical history on file. REVIEW OF SYSTEMS Review of Systems: Review of Systems All other systems reviewed and are negative. OBJECTIVE Objective: Physical Exam Constitutional: Appearance: Normal appearance. She is well-developed. Genitourinary: Vulva normal. Breasts: Breasts are soft. Right: Normal. Left: Normal. Cardiovascular: Rate and Rhythm: Normal rate and regular rhythm. Pulmonary: Effort: Pulmonary effort is normal. Breath sounds: Normal breath sounds. Abdominal: General: Bowel sounds are normal. There is no distension. Palpations: Abdomen is soft. Tenderness: There is no abdominal tenderness. There is no guarding or rebound. Musculoskeletal: General: No swelling. Normal range of motion. Right lower leg: No edema. Left lower leg: No edema. Neurological: Mental Status: She is alert and oriented to person, place, and time. Skin: General: Skin is warm and dry. Psychiatric: Mood and Affect: Mood normal. Behavior: Behavior normal. Vitals and nursing note reviewed. Exam conducted with a certified addiction counselor present. Vitals: There is no height or weight on file to calculate BMI. BP: 118/68 Patient's last menstrual period was 05/23/2024. ASSESSMENT & PLAN ICD-10-CM 1. Well woman exam with routine gynecological exam Z01.419 Pap Smear HPV DNA probe, amplified 2. Screening, , for anatomic survey Z36.89 Alpha fetoprotein, maternal US OB ANATOMY SINGLE W US OB CERVICAL LENGTH Alpha fetoprotein, maternal 3. Second trimester Z34.92 POCT urinalysis dipstick manually resulted 4. Exposure to STD Z20.2 SURESWAB(R) ADVANCED VAGINITIS PLUS, TMA CHLAMYDIA TRACHOMATIS (GENITO/STI) Neisseria gonorrhea DNA probe, direct Return OB/Annual Exam: Patient presents today for an annual exam/routine obstetrics appointment. Patient is currently 17w4d . Patient is doing well and states she has no complaints. Pap/cultures was obtained without difficulty and patient was given [facility] order to have obtained. Orders Placed This Encounter Procedures HPV DNA probe, amplified US OB ANATOMY SINGLE W US OB CERVICAL LENGTH CHLAMYDIA TRACHOMATIS (GENITO/STI) Neisseria gonorrhea DNA probe, direct Alpha fetoprotein, maternal POCT urinalysis dipstick manually resulted Follow Up: Patient is to return to our office in 4 weeks for routine OB appointment Documented by Anjana Goins LPN on behalf of: Shira Pascal DO documented in this encounter [facility] History of Present illness Narrative 08-27-2024 Shira Pascal DO - 08/27/2024 10:50 AM EDT Note Date & Type Note Facility 08-27-2024 History of Presen t illness Narrative Reason for Appointment: Patient ID: Alla Francis is a 29 y.o. female who presents for Routine Visit Patient presents today for Return OB appointment. MEDICATIONS Current Outpatient Medications Medication Instructions MV-Min-Fe Fum-FA-DHA ( 1 PO) 1 each, Oral, Daily ALLERGIES Allergies Allergen Reactions Penicillins Itching, Rash and Swelling PROBLEMS Active Ambulatory Problems Diagnosis Date Noted No Active Ambulatory Problems Resolved Ambulatory Problems Diagnosis Date Noted No Resolved Ambulatory Problems No Additional Past Medical History HISTORY PAST MEDICAL HISTORY SOCIAL HISTORY History reviewed. No pertinent past medical history. Social History Tobacco Use Smoking status: Not on file Smokeless tobacco: Not on file Substance Use Topics Alcohol use: Not on file Drug use: Not on file FAMILY HISTORY No family history on file. SURGICAL HISTORY History reviewed. No pertinent surgical history. REVIEW OF SYSTEMS Review of Systems: Review of Systems Constitutional: Negative. HENT: Negative. Eyes: Negative. Respiratory: Negative. Cardiovascular: Negative. Gastrointestinal: Negative. Genitourinary: Negative. Musculoskeletal: Negative. Skin: Negative. Neurological: Negative. All other systems reviewed and are negative. Hematological: Negative. Endocrine: Negative. Allergic/Immunologic: Negative. OBJECTIVE Objective: Physical Exam Constitutional: Appearance: Normal appearance. She is well-developed. Cardiovascular: Rate and Rhythm: Normal rate and regular rhythm. Pulmonary: Effort: Pulmonary effort is normal. Breath sounds: Normal breath sounds. Abdominal: General: Bowel sounds are normal. There is no distension. Palpations: Abdomen is soft. Tenderness: There is no abdominal tenderness. There is no guarding or rebound. Musculoskeletal: General: No swelling. Normal range of motion. Right lower leg: No edema. Left lower leg: No edema. Neurological: Mental Status: She is alert and oriented to person, place, and time. Skin: General: Skin is warm and dry. Psychiatric: Mood and Affect: Mood normal. Behavior: Behavior normal. Vitals and nursing note reviewed. Exam conducted with a certified addiction counselor present. Vitals: There is no height or weight on file to calculate BMI. BP: 112/64 Patient's last menstrual period was 05/23/2024. ASSESSMENT & PLAN ICD-10-CM 1. Second trimester Z34.92 2. 13 weeks gestation of Z3A.13 New OB: Patient presents today for 1st time obstetrics appointment with provider. Patient is currently 13w5d . Patients history has been reviewed in great detail including any potential risks. Patient stated she currently has no complaints. Expectations throughout regarding labs, ultrasounds, and appointments have been discussed with the patient in detail. It was reiterated that the patient is to drink 6-8 glasses of water a day, eat 6 small meals a day, do not consume raw or undercooked meat, and stay away from [facility]. Patient has been consulted regarding any further do's and don'ts of . Patient voiced understanding and all questions and concerns were answered. Follow Up: Patient is to return in 4 weeks for routine OB appointment. Documented by Cleo Kevin LPN on behalf of: Shira Pascal DO documented in this encounter [facility] Clinical Note 09-19-2023 Note Date & Type Note Facility 09-19-2023 Note Prevent the Spread o f COVID-19 if You Are Sick If you are sick with COVID-19 or think you might have COVID-19, follow the steps below to care for yourself and to help protect other people in your home and community. Stay home except to get medical care. ? Stay home. Most people with COVID-19 have mild illness and are able to recover at home without medical care. Do not leave your home, except to get medical care. Do not visit public areas. ? Take care of yourself. Get rest and stay hydrated. Take ltaj-ndn-fvahfyo medicines, such as acetaminophen, to help you feel better. ? Stay in touch with your doctor. Call before you get medical care. Be sure to get care if you have trouble breathing, or have any other emergency warning signs, or if you think it is an emergency. ? Avoid public transportation, ride-sharing, or taxis. Separate yourself from other people and pets in your home. ? As much as possible, stay in a specific room and away from other people and pets in your home. Also, you should use a separate bathroom, if available. If you need to be around other people or animals in or outside of the home, wear a mask. ? See COVID-19 and Animals if you have questions about pets:www.cdc.gov/coronavirus/2019-ncov/faq.html#CO SYA62zmwcspb. ? Additional guidance is available for those living in close quarters. (https://www.cdc.gov/coronavirus/2019-ncov/daily-l alec-coping/kxvkxe-pk-bkpfk-quarters.html) and shared housing (https://www.cdc.gov/coronavirus/2019-ncov/daily-l alec-coping/shared-housing/index.html). Monitor your symptoms. ? Symptoms of COVID-19 include fever, cough, and shortness of breath but other symptoms may be present as well. ? Follow care instructions from your healthcare provider and local health department. Your local health authorities will give instructions on checking your symptoms and reporting information. When to Seek Emergency Medical Attention Look for emergency warning signs* for COVID-19. If someone is showing any of these signs, seek emergency medical care immediately: ? Trouble breathing ? Persistent pain or pressure in the chest ? New confusion ? Bluish lips or face ? Inability to wake or stay awake *This list is not all possible symptoms. Please call your medical provider for any other symptoms that are severe or concerning to you. Call 911 or call ahead to your local emergency facility: Notify the pelletising extruder operator that you are seeking care for someone who has or may have COVID-19. Call ahead before visiting your doctor. ? Call ahead. Many medical visits for routine care are being postponed or done by phone or telemedicine. ? If you have a medical appointment that cannot be postponed, call your doctor's office, and tell them you have or may have COVID-19. If you are sick, wear a mask over your nose and mouth. ? You should wear a mask over your nose and mouth if you must be around other people or animals, including pets (even at home). ? You don't need to wear the mask if you are alone. If you can't put on a mask (because of trouble breathing for example), cover your coughs and sneezes in some other way. Try to stay at least 6 feet away from other people. This will help protect the people around you. ? Masks should not be placed on young children under age 2 years, anyone who has trouble breathing, or anyone who is not able to remove the mask without help. Note: During the COVID-19 pandemic, medical grade facemasks are reserved for healthcare workers and some first responders. You may need to make a mask using a scarf or bandana. Cover your coughs and sneezes. ? Cover your mouth and nose with a tissue when you cough or sneeze. ? Throw used tissues in a lined trash can. ? Immediately wash your hands with soap and water for at least 20 seconds. If soap and water are not available, clean your hands with an alcohol-based hand weighbridge operator that contains at least 60% alcohol. Clean your hands often. ? Wash your hands often with soap and water for at least 20 seconds. This is especially important after blowing your nose, coughing, or sneezing; going to the bathroom; and before eating or preparing food. ? Use hand weighbridge operator if soap and water are not available. Use an alcohol-based hand weighbridge operator with at least 60% alcohol, covering all surfaces of your hands and rubbing them together until they feel dry. ? Soap and water are the best option, especially if your hands are visibly dirty. ? Avoid touching your eyes, nose, and mouth with unwashed hands. Avoid sharing personal household items. ? Do not share dishes, drinking glasses, cups, eating utensils, towels, or bedding with other people in your home. ? Wash these items thoroughly after using them with soap and water or put them in the surgical elastic knitter hand frame. Clean all high-touch surfaces everyday. ? Clean and disinfect high-touch surfaces in your sick room and bathroom. Let someone else clean and disinfect surfaces in common areas, but not your bedroom and bathroom. ? If a care (more content not included)... [facility] Evaluation note Note Date & Type Note Facility Evaluation note Diagnosis Second trimester state, incidental 13 weeks gestation of documented in this encounter [facility] Evaluation note Note Date & Type Note Facility Evaluation note Diagnosis Well woman exam with routine gynecological exam Routine gynecological examination Screening, , for anatomic survey Encounter for anatomic survey Second trimester state, incidental Exposure to STD documented in this encounter [facility] Summary Purpose Family History No Family History Records FoundNo Family History Records FoundNo Family History Records FoundNo Family History Records Found Advance Directives No Advanced Directives Records FoundNo Advanced Directives Records FoundNo Advanced Directives Records FoundNo Advanced Directives Records Found Additional Source Comments INFORMATION SOURCE (unrecogn ized section and content) DATE CREATED AUTHOR 09/11/2021 [facility] DATE CREATED AUTHOR AUTHOR'S ORGANIZ ATION 08/01/2024 [facility] DATE CREATED AUTHOR AUTHOR'S ORGANIZ ATION 08/26/2024 [facility] DATE CREATED AUTHOR AUTHOR'S ORGANIZ ATION 08/29/2024 [facility] EPIC Care Teams (unrecognized sec tion and content) Rn On Site Relationship Specialty Start Date End Date La Maddox MD [address] [place] [id number] PCP - General Family Medicine 02/05/24 Minoo Flores PA [address] [place] [address] PCP - DANIELA England [facility] 05/06/24 Rn On Site Relationship Specialty Start Date End Date La Maddox MD [address] [place] [id number] PCP - General Family Medicine 02/05/24 Minoo Flores PA [address] [place] [address] PCP - DANIELA England [facility] 05/06/24 Rn On Site Relationship Specialty Start Date End Date La Maddox MD [address] [place], [place] [phone] PCP - General Family Medicine 02/05/24 Minoo Flores PA [address] [place] [address] PCP Marguerite England [facility] 05/06/24 Reason for Visit (unrecogniz ed section and content) Reason Comments Routine Visit FOR RECORDS PERTAINING TO PATIENTS WHO ARE OR HAVE BEEN ENROLLED IN A CHEMICAL DEPENDENCY/SUBSTANCEABUSE PROGRAM, SOME INFORMATION MAY BE OMITTED. This clinical summary was aggregated from multiple sources. Caution should be exercised in using it in the provision of clinical care. This summary normalizes information from multiple sources, and as a consequence, information in this document may materially change the coding, format and clinical context of patient data. In addition, data may be omitted in some cases. CLINICAL DECISIONS SHOULD BE BASED ON THE PRIMARY CLINICAL RECORDS. [facility]. provides no warranty or guarantee of the accuracy or completeness of information in this document.
== END 2024-09-23 21:42 | disposition home or self-care (01) ==
LOC: LAB 21:41
PROVIDERS: Visit Provider Obstetrics & Gynecology
DX: Z01.419 Encounter for gynecological examination (general) (routine) without abnormal findings (principal)
CPT/HCPCS: 87624; 88175

== ENCOUNTER 2024-10-14 11:04 | Outpatient (OUT) | payer MEDICAID, SELFPAY ==
--- NOTE | 2024-10-14 | US_ITS ---
[address] [address] Patient Name: PAMELA FRANCIS MRN: [facility]:[id number] date: 1995 Sex: F Assigned Patient Location: [facility] Current Patient Location: [facility] Accession/Order Number: [id number] Exam Date: 10/14/2024 11:11 Report Date: 10/14/2024 14:22 At the request of: SHIRA OLVERA Procedure: US OB cervical length EXAMINATION: US OB anatomy, US OB cervical length HISTORY: ANATOMY COMPARISON: Ultrasound OB transvaginal 07/26/2024 TECHNIQUE: Transabdominal sonographic examination was performed for obstetrical and evaluation. FINDINGS: Number: 1 Heart Rate: 138 bpm Amniotic Fluid Volume: Subjectively normal. Placental Location: POSTERIOR with lower margin 4.1 cm from os. Cervix Length: Funneling at the internal os, 0.5 cm in diameter extending 1.3 cm into the cervical canal. Close length of cervix is 2.8 cm which decreases to 2.4 cm during Valsalva. ANATOMY: Normal Structures -cerebellum, choroid plexus, cisterna magna, lateral cerebral ventricles, orbits, midline falx, hard palate, four-chamber heart, RVOT, LVOT, stomach, kidneys, bladder, umbilical cord insertion into abdomen, three-vessel cord, cervical spine, thoracic spine, lumbar spine, sacral spine, right upper extremity, left upper extremity, right lower extremity, left lower extremity. SUBOPTIMALLY SEEN: None ABNORMALITIES: None BIOMETRY: BPD: 5.25 cm; 22 weeks 0 days; 92.30 % HC: 18.77 cm; 21 weeks 1 day; 64.70 % AC: 14.48 cm; 19 weeks 6 days; 20.20 % FL: 3.58 cm; 21 weeks 2 days; 68.60 % EFW:368.66 g; 47.40 % FL/AC: 24.72 FL/BPD: 68.19 HC/AC: 1.30 GESTATIONAL AGE: Age by EDC: 20 weeks 4 days Age by current US: 21 weeks 1 day JACQUIE by current US: 2025-02-23 JACQUIE by EDC: 2025-02-27 US/US OB cervical length IMPRESSION: 1. Single live intrauterine with growth detailed above. 2. Funneling of the cervix at the internal os as detailed above. Close length of cervix is 2.8 cm at rest which decreases to 2.4 cm during Valsalva. Electronically authenticated by: JOHN STOKES Date: 10/14/2024 14:22
--- NOTE | 2024-10-14 | US_ITS ---
[address] [address] Patient Name: PAMELA FRANCIS MRN: [facility]:[id number] date: 1995 Sex: F Assigned Patient Location: [facility] Current Patient Location: [facility] Accession/Order Number: [id number] Exam Date: 10/14/2024 11:11 Report Date: 10/14/2024 14:22 At the request of: SHIRA OLVERA Procedure: US OB anatomy EXAMINATION: US OB anatomy, US OB cervical length HISTORY: ANATOMY COMPARISON: Ultrasound OB transvaginal 07/26/2024 TECHNIQUE: Transabdominal sonographic examination was performed for obstetrical and evaluation. FINDINGS: Number: 1 Heart Rate: 138 bpm Amniotic Fluid Volume: Subjectively normal. Placental Location: POSTERIOR with lower margin 4.1 cm from os. Cervix Length: Funneling at the internal os, 0.5 cm in diameter extending 1.3 cm into the cervical canal. Close length of cervix is 2.8 cm which decreases to 2.4 cm during Valsalva. ANATOMY: Normal Structures -cerebellum, choroid plexus, cisterna magna, lateral cerebral ventricles, orbits, midline falx, hard palate, four-chamber heart, RVOT, LVOT, stomach, kidneys, bladder, umbilical cord insertion into abdomen, three-vessel cord, cervical spine, thoracic spine, lumbar spine, sacral spine, right upper extremity, left upper extremity, right lower extremity, left lower extremity. SUBOPTIMALLY SEEN: None ABNORMALITIES: None BIOMETRY: BPD: 5.25 cm; 22 weeks 0 days; 92.30 % HC: 18.77 cm; 21 weeks 1 day; 64.70 % AC: 14.48 cm; 19 weeks 6 days; 20.20 % FL: 3.58 cm; 21 weeks 2 days; 68.60 % EFW:368.66 g; 47.40 % FL/AC: 24.72 FL/BPD: 68.19 HC/AC: 1.30 GESTATIONAL AGE: Age by EDC: 20 weeks 4 days Age by current US: 21 weeks 1 day JACQUIE by current US: 2025-02-23 JACQUIE by EDC: 2025-02-27 US/US OB anatomy IMPRESSION: 1. Single live intrauterine with growth detailed above. 2. Funneling of the cervix at the internal os as detailed above. Close length of cervix is 2.8 cm at rest which decreases to 2.4 cm during Valsalva. Electronically authenticated by: JOHN STOKES Date: 10/14/2024 14:22
== END 2024-10-14 11:05 | disposition home or self-care (01) ==
LOC: NOMS 11:04
PROVIDERS: Visit Provider Obstetrics & Gynecology
DX: Z36.89 Encounter for other specified antenatal screening (principal); Z3A.20 20 weeks gestation of pregnancy
CPT/HCPCS: 76805; 76817

== ENCOUNTER 2024-10-28 08:04 | Outpatient (OUT) | payer MEDICAID, SELFPAY ==
--- NOTE | 2024-10-28 08:08 | US_ITS ---
The [address] [address] Patient Name: PAMELA FRANCIS MRN: [id number] date: 1995 Sex: F Assigned Patient Location: [facility] Current Patient Location: [facility] Accession/Order Number: [id number] Exam Date: 10/28/2024 08:10 Report Date: 10/28/2024 09:10 At the request of: KOSTA BLEVINS Procedure: US OB cervical length EXAMINATION: US OB cervical length HISTORY: CERVICAL FUNNELING COMPARISON: 10/14/2024 FINDINGS: There is funneling of the cervix. The entire cervix measures 3.4 cm in length with the closed portion measuring only 1 cm in length. position: Cephalic US/US OB cervical length IMPRESSION: Funneling of the internal cervical os is closed portion the cervix measuring 1.0 cm in length Electronically authenticated by: HALLE BELLE Date: 10/28/2024 09:10
--- OUTSIDE RECORDS SUMMARY | 2024-10-28 08:22 | XMS_ITS | CCD ---
Author Organization [facility] CliniSyal Care Team Providers Care Major Assembly Inspector Name Role Phone DR SHIRA PASCAL Consulting Unavailable NAIDA, DR SILVA Attending Unavailable NAIDA, DR SILVA Admitting Unavailable FOUZIA, OBIE C Referring Unavailable LA MADDOX Primary Care Unavailable LA MADDOX Primary Care Unavailable SHIRA PASCAL Referring Unavailable SHIRA PASCAL Referring Unavailable LA MADDOX Primary Care Unavailable SHIRA PASCAL Referring Unavailable LA MADDOX Primary Care Unavailable Varsha CABRERA, La Pugh Primary Care Provider [phone] Minoo Solis Unavailable [phone] LA MADDOX MD Primary Care Unavailable LA MADDOX MD Attending Unavailable VARSHA CABRERA, LA Pugh Primary Care Unavailable AL MADDOX MD Attending Unavailable DOROTHEA BLEVINS Attending Unavailable SHIRA PASCAL Attending Unavailable SHIRA PASCAL Attending Unavailable SHIRA PASCAL Attending Unavailable Allergies Allergy Classification Reported Allergen(s) Allergy Type Date of Onset Reaction(s) Facility (11 sources) Penicillins; Translations: [PENICILLINS] Propensity to adverse reactions to drug (disorder) 7 Itching, Rash, Swelling [facility] Repository (5 sources) Penicillin G Drug Allergy 4 [facility] (1 source) Penicillin; Translations: [penicillin] Drug Allergy [facility] Repository Medications Current Medications Medication Drug Class(es) Dates Sig (Normalized) Sig (Original) ondansetron 4 mg disintegrating oral tablet (1 source) Serotonin-3 Receptor Antagonist Start: 07-26-2024 End: 08-25-2024 take 1 tablet by mouth every six hours as needed for nausea and vomiting and nausea and nausea ondansetron ODT (Zofran-ODT) 4 MG disintegrating tablet Indications: Nausea Take 1 tablet (4 mg) by mouth every 6 (six) hours if needed for nausea or vomiting 30 tablet 2 07/26/2024 08/25/2024 Active MV-Min-Fe Fum-FA-DHA ( 1 PO) (10 sources) MV-Min- Fe Fum-FA-DHA ( 1 PO) Take 1 each by mouth Daily Active Progesterone 200 MG suppository (2 sources) Start: 10-15-2024 End: 11-14-2024 Progesterone 200 MG suppository Indications: Cervical shortening affecting Insert 200 mg into the vagina at bedtime 30 suppository 4 10/15/2024 11/14/2024 Active terconazole 4 mg/ml vaginal cream (2 sources) Azole Antifungal Start: 10-21-2024 End: 10-28-2024 terconazole (Terazol 7) 0.4 % vaginal cream Indications: Yeast infection Insert 1 applicator into the vagina at bedtime for 7 days 45 g 10/21/2024 10/28/2024 Active Problems Active Problems Problem Classification Problem Date Documented Date Episodic/Chronic Immunizations and screening for infectious disease (3 sources) Encounter for screening for human papillomavirus (HPV); Translations: [Exposure to sexually transmissible disorder] Onset: 09-01-2021 09-23-2024 Episodic Menstrual disorders (2 sources) Irregular menstruation, unspecified; Translations: [Missed period] Onset: 06-19-2024 07-26-2024 Chronic Open wounds of extremities (1 source) Laceration without foreign body of left index finger without damage to nail, initial encounter; Translations: [Laceration without foreign body of left index finger without damage to nail, initial encounter] Onset: 06-18-2024 Episodic Other complications of (2 sources) Short cervical length in ; Translations: [Cervical shortening, unspecified trimester] Onset: 10-14-2024 10-14-2024 Episodic Other and delivery including normal (7 sources) Second trimester ; Translations: [Encounter for supervision of normal , unspecified, second trimester] 08-27-2024 Episodic Other screening for suspected conditions (not mental disorders or infectious disease) (7 sources) Encounter for screening for malignant neoplasm of cervix; Translations: [Patient encounter status] Onset: 08-25-2021 Episodic Residual codes; unclassified (2 sources) Gestation period, 13 weeks; Translations: [13 weeks gestation of ] 08-27-2024 Episodic Residual codes; unclassified (1 source) Gestation period, 21 weeks; Translations: [21 weeks gestation of ] 10-22-2024 Episodic Past or Other Problems Problem Classification Problem Date Documented Da te Episodic/Chronic Nausea and vomiting (1 source) Nausea; Translations: [Nausea] 07-26-2024 Episodic Results Test Name Value Interpretation Reference Range Facility Outside Recordson 10-15-2024 Outside Records [id number] .[id number] [facility] IGP,APTIMA HPV,AGE GDLNon AGE GDLN ACOG TESTING Note . [facility] Comment on above: TESTS RESULT FLAG UN ITS REF RANGE LAB Clinician Provided Cytology Information Source.............Cervix No. of containers..01 ThinPrep Vial Age Algo ACOG Sabino... 30-65 01 FLAG LEGEND: L-Low Normal,H-High Normal,LL-Alert Low,HH-Alert High <-Panic Low,>-Panic High,A-Abnormal,AA-Critical Abnormal Performed at: 01 [address] [address] Kiera Bennett MD, HPV APTIMA Negative Negative [facility] e Comment on above: This nucleic acid am plification test detects fourteen high- risk HPV types (16,18,31,33,35,39,45,51,52,56,58,59,66,68) without differentiation. Performed at: = - [address] [id number] Case Packer And Sealer: Kiera Bennett MD, Phone: [phone] Performed at: [address] [id number] [employer] Packer [employer] Sealer: Kiera Bennett MD, Phone: [phone] IGP, APTIMA HPV, RFX 16/18,45 Note . [facility] Comment on above: TESTS RESULT FLAG UN ITS REF RANGE LAB DIAGNOSIS: 02 NEGATIVE FOR INTRAEPITHELIAL LESION OR MALIGNANCY. Specimen adequacy: 02 Satisfactory for evaluation. No endocervical component is identified. Performed by: 02 Nya Brown, Desktop Engineer (ASCP) . 02 Note: Note 02 The Pap smear is a screening test designed to aid in the detection of premalignant and malignant conditions of the uterine cervix. It is not a diagnostic procedure and should not be used as the sole means of detecting cervical cancer. Both false-positive and false-negative reports do occur. Test Methodology: Note 02 This liquid based ThinPrep(R) pap test was screened with the use of an image guided system. HPV Genotype Reflex Note 02 Criteria not met, HPV Genotype not performed. FLAG LEGEND: L-Low Normal,H-High Normal,LL-Alert Low,HH-Alert High <-Panic Low,>-Panic High,A-Abnormal,AA-Critical Abnormal Performed at: [address] [place] [address] Kiera Bennett MD, SPATULA-ALONE CERVIX [facility] Urinalysis macro (dipstick) panel (U)on 09-23-2024 Bilirubin, UA Negative Negative - 4(70) +++ mg/dL [facility] Blood, UA Negative Negative - 50 Pa/mcL [facility] Clarity, UA Clear [facility] Color, UA Yellow [facility] Glucose, UA Negative Negative - 1999(110) ++++ mg/dL [facility] Interpretation and review of laboratory results Normal [facility] Ketones, UA Negative Negative - 160(16) ++++ mg/dL [facility] Leukocytes, UA Negative Negative - 500+++ Varinder/mcL [facility] Nitrite, UA Negative Negative - Positive [facility] pH, UA 6.5 5 - 9 [facility] Protein, UA Negative Negative - 1999(20) ++++ mg/dL [facility] Spec Grav, UA 1.02 1 - 1.03 [facility] care Urobilinogen, UA 0.2 0.2 - 12 mg/dL [facility] CBC AND AUTO DIFFon 08-23-20 24 ABSOLUTE BASOPHIL 0.0 X10E9/L Normal 0.0-0.2 [facility] Comment on above: Performed By: #### H A1C, CBCA, 5196-1, 62530-3, 19401-9, 11461-1, 8014-3, 29753-0 #### [facility] ([id number]) [address] [facility] [facility], [address] [place] [address] ABSOLUTE NEUTROPHIL 7.7 X10E9/L High 1.5-6.6 [facility] Comment on above: Performed By: #### H A1C, CBCA, 5196-1, 56471-7, 89410-5, 08099-5, 8014-3, 57513-9 #### [facility] ([id number]) [address], [address] [place] [address] Basophils/100 WBC (Bld) 0.3 % Normal [facility] Comment on above: Performed By: #### H A1C, CBCA, 5196-1, 70016-7, 68518-7, 53432-9, 8014-3, 24653-0 #### [facility] ([id number]) [address], [address] [place] [address] Eosinophils (Bld) [#/Vol] 0.1 10*3/uL Normal 0.0-0.4 [facility] Comment on above: Performed By: #### H A1C, CBCA, 5196-1, 19076-5, 88473-3, 70283-2, 8014-3, 55981-4 #### [facility] ([id number]) [address], [address] [place] [address] Eosinophils/100 WBC (Bld) 0.9 % Normal [facility] Comment on above: Performed By: #### H A1C, CBCA, 5196-1, 19482-6, 08615-9, 20450-3, 8014-3, 50080-5 #### [facility] ([id number]) [address], [address] [place] [address] Erythrocyte distribution width (RBC) [Ratio] 13.6 % Normal 11.5-15.0 [facility] Comment on above: Performed By: #### H A1C, CBCA, 5196-1, 31347-2, 22955-7, 99501-5, 8014-3, 39031-2 #### [facility] ([id number]) [address], [address] [place] [address] Hematocrit (Bld) [Volume fraction] 35.7 % Normal 35-47 [facility] Comment on above: Performed By: #### H A1C, CBCA, 5196-1, 43620-8, 43446-6, 38302-0, 8014-3, 79321-6 #### [facility] ([id number]) [address], [address] [place] [address] Hemoglobin (Bld) [Mass/Vol] 12.5 g/dL Normal 11.7-15.5 [facility] Comment on above: Performed By: #### H A1C, CBCA, 5196-1, 10337-7, 21589-8, 60666-5, 8014-3, 78014-7 #### [facility] ([id number]) [address], [facility] [address] [place] [address] Lymphocytes (Bld) [#/Vol] 1.7 10*3/uL Normal 1.0-3.5 [facility] Comment on above: Performed By: #### H A1C, CBCA, 5196-1, 22618-7, 09964-2, 04084-6, 8014-3, 11437-6 #### [facility] ([id number]) [address], [facility] [address] [place] [address] Lymphocytes/100 WBC (Bld) 16.9 % Normal [facility] Comment on above: Performed By: #### H A1C, CBCA, 5196-1, 26878-6, 83828-7, 04950-5, 8014-3, 94909-7 #### [facility] ([id number]) [address], [address] [place] [address] MCH (RBC) [Entitic mass] 31.8 pg Normal 27-34 [facility] Comment on above: Performed By: #### H A1C, CBCA, 5196-1, 57656-9, 90855-1, 52876-6, 8014-3, 17474-1 #### [facility] ([id number]) [address], [address] [place] [address] MCHC (RBC) [Mass/Vol] 35.1 g/dL Normal 32-36 [facility] Comment on above: Performed By: #### H A1C, CBCA, 5196-1, 11687-4, 55300-1, 35441-7, 8014-3, 53788-2 #### [facility] ([id number]) [address], [address] [place] [address] MCV (RBC) [Entitic vol] 91 fL Normal 80-100 [facility] Comment on above: Performed By: #### H A1C, CBCA, 5196-1, 42274-2, 87873-4, 74269-4, 8014-3, 43071-7 #### [facility] ([id number]) [address], [address] [place] [address] Monocytes (Bld) [#/Vol] 0.6 10*3/uL Normal 0-0.9 [facility] Comment on above: Performed By: #### H A1C, CBCA, 5196-1, 10860-0, 68141-4, 42209-3, 8014-3, 25746-2 #### [facility] ([id number]) [address], [address] [place] [address] Monocytes/100 WBC (Bld) 5.7 % Normal [facility] Comment on above: Performed By: #### H A1C, CBCA, 5196-1, 32114-6, 12976-6, 22777-2, 8014-3, 41588-5 #### [facility] ([id number]) [address], [address] [place] [address] Neutrophils/100 WBC (Bld) 76.2 % Normal [facility] Comment on above: Performed By: #### H A1C, CBCA, 5196-1, 16629-7, 16503-3, 29372-6, 8014-3, 88277-7 #### [facility] ([id number]) [address], [address] [place] [address] Platelet mean volume (Bld) [Entitic vol] 10.8 fL Normal 7-12 [facility] Comment on above: Performed By: #### H A1C, CBCA, 5196-1, 87311-0, 26827-0, 71583-8, 8014-3, 81424-3 #### [facility] ([id number]) [address], [address] [place] [address] Platelets (Bld) [#/Vol] 153 10*3/uL Normal 150-450 [facility] Comment on above: Performed By: #### H A1C, CBCA, 5196-1, 35139-1, 61461-6, 02576-9, 8014-3, 62399-4 #### [facility] ([id number]) [address], [address] [place] [address] RBC COUNT 3.94 X10E12/L Normal 3.80-5.20 [facility] Comment on above: Performed By: #### H A1C, CBCA, 5196-1, 24496-6, 45212-1, 35736-7, 8014-3, 82427-6 #### [facility] ([id number]) [address], [address] [place] [address] WBC (Bld) [#/Vol] 10.1 10*3/uL Normal 4.0-11.0 [facility] Comment on above: Performed By: #### H A1C, CBCA, 5196-1, 71599-7, 71411-9, 07832-0, 8014-3, 90482-1 #### [facility] ([id number]) [address], [address] [place] [address] DRUG SCREEN, URINEon 024 AMPHETAMINE/METHAMP Negative Normal NEG [facility] Comment on above: Result Comment: AMPH /METH screening cut off = 1000 ng/mL Performed By: #### 2 0415-6 #### [facility] ([id number]) [address], [address] [place] [address] BARBITURATES Negative Normal NEG [facility] Comment on above: Result Comment: Yamileth iturates screening cut off value = 200 ng/mL Performed By: #### 2 0415-6 #### [facility] ([id number]) [address], [address] [place] [address] BENZODIAZEPINES Negative Normal NEG [facility] Comment on above: Result Comment: [place] odiazepines screening cut off value = 200 ng/mL Performed By: #### 2 0415-6 #### [facility] ([id number]) [address], [address] [place] [address] CANNABINOIDS Negative Normal NEG [facility] Comment on above: Result Comment: Kristyn abinoids/THC screening cut off value = 50 ng/mL Performed By: #### 2 0415-6 #### [facility] ([id number]) [address], [address] [place] [address] COCAINE METABOLITE Negative Normal NEG [facility] Comment on above: Result Comment: Coca ine screening cut off value = 300 ng/mL Performed By: #### 2 0415-6 #### [facility] ([id number]) [address], [address] [place] [address] ECSTASY Negative Normal NEG [facility] Comment on above: Result Comment: Ecst asy screening cut off value = 500 ng/mL This report is intended for use in clinical monitoring or management of patients. Performed By: #### 2 0415-6 #### [facility] ([id number]) [address], [address] [place] [address] METHADONE Negative Normal NEG [facility] Comment on above: Result Comment: Meth adone screening cut off value = 300 ng/mL. Performed By: #### 2 0415-6 #### [facility] ([id number]) [address], [address] [place] [address] OPIATES Negative Normal NEG [facility] Comment on above: Result Comment: Opia sabino screening cut off value = 300 ng/mL NOTE: This test is used for the detection of codeine, hydrocodone (>1000 ng/mL), morphine and hydromorphone (>900 ng/mL) in urine. Performed By: #### 2 0415-6 #### [facility] ([id number]) [address], [facility] [address] [place] [address] OXYCODONE Negative Normal NEG [facility] Comment on above: Result Comment: Oxyc odone screening cut off value = 300 ng/mL NOTE: This test is used for the detection of oxycodone and oxymorphone in urine. Performed By: #### 2 0415-6 #### [facility] ([id number]) [address], [address] [address] PHENCYCLIDINE Negative Normal NEG [facility] Comment on above: Result Comment: Phen cyclidine screening cut off value = 25 ng/mL Performed By: #### 2 0415-6 #### [facility] ([id number]) [address] [address] HBV surface Ag IA Qlon 08-23 HEPATITIS B SURF AG Negative Normal NEG [facility] Comment on above: Performed By: #### H A1C, CBCA, 5196-1, 48653-2, 20194-7, 64323-6, 8014-3, 45071-3 #### [facility] ([id number]) [address] [address] HCG ( test) Ql (U)o n 08-23-2024 Beta HCG ( test) Ql (U) Positive Abnormal NEG [facility] Comment on above: Performed By: #### 2 106-3 #### [facility] ([id number]) [address], [address] [address] HCG.beta subunit IA 3rd IS Q non 08-23-2024 HCG.beta subunit Qn 676949 m[IU]/mL Normal [facility] Comment on above: Result Comment: NEW REFERENCE [...] neoplasms. Performed By: #### 2 0415-6 #### [facility] ([id number]) [address], [address] [place] [address] HCV Ab IA Qlon 08-23-2024 ANTI HCV W/PCR REFLX Non-Reactive Normal NRCT [facility] Comment on above: Result Comment: If recent infection suspected, recommend repeat testing (>2 months). Unorpt-ks-ozfzin ratio is <0.80. Performed By: #### H A1C, CBCA, 5196-1, 44180-6, 37793-3, 84872-8, 8014-3, 56920-3 #### [facility] ([id number]) [address], [address] [place] [address] HGB A1C (GLYCO-HGB)on 2023 Glucose [Mass/Vol] 91 mg/dL Normal [facility] Comment on above: Performed By: #### H A1C, CBCA, 5196-1, 10680-6, 97358-1, 02577-6, 8014-3, 86941-6 #### [facility] ([id number]) [facility] [facility], [address] [place] [address] HbA1c (Bld) [Mass fraction] 4.8 % Normal 4.4-5.6 [facility] Comment on above: Result Comment: NOTE ADA Guidelines Result HgbA1c Normal : less than 5.7 % Prediabetes : 5.7 % to 6.4 % Diabetes : > 6.4 % Use with caution in patients with abnormal hemoglobin variants as the half-life of red blood cells and in vivo glycation rates are affected. Performed By: #### H A1C, CBCA, 5196-1, 65902-8, 87941-7, 82112-4, 4-3, 20136-6 #### [facility] ([id number]) [facility] [facility] [place] [address] HIV 1+2 Ab+HIV1 p24 Ag IA Ql on 08-23-2024 HIV 1 and 2 Ab/Ag Screen Non-Reactive Normal NRCT [facility] Comment on above: Result Comment: This information [...] Performed By: #### H A1C, CBCA, 5196-1, 52187-3, 00171-4, 51652-0, 4-3, 89486-9 #### [facility] ([id number]) [facility] [facility] [place] [address] Rubella virus IgG Qn (S)on RUBELLA IgG 16 IU/mL Normal [facility] Comment on above: Result Comment: Interpretation-------- <8 NEGATIVE-considered Not Immune 8-9 EQUIVOCAL-consider retesting with new specimen >9 POSITIVE-considered Immune Performed By: #### 2 0415-6 #### [facility] ([id number]) [address], [address] [place] [address] T. pallidum IgG+IgM IA Ql (S )on 08-23-2024 Syphilis Total <0.2 Normal 0.0-0.8 [facility] Comment on above: Result Comment: NON REACTIVE No serologic evidence of infection to Treponema pallidum (syphilis). Repeat testing may be considered in patients with suspected acute or primary syphilis in 2 to 4 weeks. Performed By: #### 2 0415-6 #### [facility] ([id number]) [address], [address] [place] [address] URINALYSISon 08-23-2024 Amorphous sediment LM Ql (Urine sed) PRESENT Abnormal NONE [facility] Comment on above: Performed By: #### U A #### [facility] ([id number]) [address], [address] [place] [address] Bilirubin Ql (U) Negative Normal NEG [facility] Comment on above: Performed By: #### U A #### [facility] ([id number]) [address], [address] [place] [address] BLOOD/HGB Negative Normal NEG [facility] Comment on above: Performed By: #### U A #### [facility] ([id number]) [address], [address] [place] [address] Color (U) ORANGE Abnormal YELLOW [facility] Comment on above: Performed By: #### U A #### [facility] ([id number]) [address], [address] [place] [address] Glucose Ql (U) Negative Normal NEG [facility] Comment on above: Performed By: #### U A #### [facility] ([id number]) [address], [address] [place] [address] Ketones Ql (U) Negative Normal NEG [facility] Comment on above: Performed By: #### U A #### [facility] ([id number]) [address], [address] [place] [address] Leukocyte esterase Test strip Ql (U) Negative Normal NEG [facility] Comment on above: Performed By: #### U A #### [facility] ([id number]) [address], [address] [place] [address] Nitrite Ql (U) Negative Normal NEG [facility] Comment on above: Performed By: #### U A #### [facility] ([id number]) [address], [address] [place] [address] pH (U) 6.5 [pH] Normal 5.0-8.5 [facility] Comment on above: Performed By: #### U A #### [facility] ([id number]) [address], [address] [place] [address] Protein Ql (U) Trace Abnormal NEG [facility] Comment on above: Performed By: #### U A #### [facility] ([id number]) [address], [address] [place] [address] R.B.CELLS 1 /hpf Normal 0-5 [facility] Comment on above: Performed By: #### U A #### [facility] ([id number]) [address], [address] [place] [address] Specific gravity (U) [Rel density] 1.023 Normal 1.003-1.035 [facility] Comment on above: Performed By: #### U A #### [facility] ([id number]) [address] [place] [address] SQUAMOUS EPITHELIUM 15 /hpf High 0-5 [facility] Comment on above: Performed By: #### U A #### [facility] ([id number]) [address] [place] [address] TURBIDITY CLOUDY Abnormal CLEAR [facility] Comment on above: Performed By: #### U A #### [facility] ([id number]) [address] [place] [address] Urobilinogen (U) [Mass/Vol] mg/dL Normal <1.1 [facility] Comment on above: Performed By: #### U A #### [facility] ([id number]) [address] [place] [address] W.B.CELLS 1 /hpf Normal 0-5 [facility] Comment on above: Performed By: #### U A #### [facility] ([id number]) [address] [place] [address] URINE CULTUREon 08-23-2024 Bacteria identified Cx Nom (U) CULTURE RESULTS 10-50,000 ORGANISMS/mL NORMAL UROGENITAL FRANCOISE Normal [facility] Comment on above: Performed By: #### 2 0415-6 #### [facility] ([id number]) [address] [place] [address] Outside Recordson 07-30-2024 Outside Records [id number] .[id number] Normal [facility] HCG ( test) Ql (U)o n 07-26-2024 Interpretation and review of laboratory results Abnormal [facility] Preg Test, Ur Positive [facility] Urinalysis macro (dipstick) panel (U)on 07-26-2024 Bilirubin, UA Positive Negative - 4(70) +++ mg/dL [facility] Blood, UA Negative Negative - 50 Pa/mcL [facility] Clarity, UA Clear [facility] Color, UA Yellow [facility] Glucose, UA Negative Negative - 1999(110) ++++ mg/dL [facility] Interpretation and review of laboratory results Abnormal [facility] Ketones, UA Negative Negative - 160(16) ++++ mg/dL [facility] Leukocytes, UA Negative Negative - 500+++ Varinder/mcL [facility] Nitrite, UA Negative Negative - Positive [facility] pH, UA 5.5 5 - 9 [facility] e Protein, UA Trace Negative - 1999(20) ++++ mg/dL [facility] Spec Grav, UA 1.030 1 - 1.03 [facility] Urobilinogen, UA 0.2 0.2 - 12 mg/dL [facility] HCG.beta subunit IA 3rd IS Q non 06-21-2024 HCG.beta subunit Qn 647 m[IU]/mL Normal [facility] Comment on above: Result Comment: NEW REFERENCE [...] neoplasms. Performed By: #### 2 0415-6 #### [facility] ([id number]) [address] [facility], [address] [place] [address] HCG.beta subunit IA 3rd IS Q non 06-19-2024 HCG.beta subunit Qn 339 m[IU]/mL Normal Pro [facility] Comment on above: Result Comment: NEW REFERENCE [...] neoplasms. Performed By: #### 2 0415-6 #### [facility] ([id number]) [address] [place] [address], [address] [place] [address] XR FINGER LT 2ND DIGIT MIN 2 [...] Zaragoza DO on 06/18/2024 4:14 PM Normal [facility] Ambulatory Patient Summaryon 03-08-2024 Ambulatory Patient Summary [address], [address] - Visit Summary For ALLA FRANCIS Age: 28 years Sex: FEMALE : 1995 Address: [address] [place] [address], [address] Home: Work: -- Mobile: -- Primary Care Provider: VARSHA CABRERA, [place] Pugh Race: White Ethnicity: Not or Language: Serbian Health Plan: 1?MEDICAID ANTHEM ODM Reason for [...] alcohol and/or drug addiction problems; contact the [facility] 29/05 Crisis Hotline -Text 4HOPE to 471199. Follow-Up Information With: Address: When: VARSHA CABRERA, [place] Pugh [facility] [address]/ [address] [place], [place] [id number] , only if needed Future Appointments No [...] 1.84 m2 Body Mass Index: 27.18 kg/m2 [place] Body Weight Calculated: 56.909 kg BSA Measured: [...] greater risk (more content not included)... Normal [facility] Patient Handouton 03-08-2024 Patient Handout Orthopedics Radicular [...] and rising up. ? Do strength and mynnw-za-wdtfnd exercises only as told by your health care provider or physical therapist. General instructions ? Take dcza-qrn-elsqedb and prescription medicines only as told by [...] Reviewed: 04/28/2022 Elsevier Patient Education ? 2022 [employer] Normal [facility] Ambulatory Patient Summaryon 01-18-2024 Ambulatory Patient Summary [facility] [address], [facility], [address] - Visit Summary For ALLA FRANCIS Age: 28 years Sex: FEMALE : 1995 Address: [address] [place] [address], [address] Home: Work: -- Mobile: -- Primary Care Provider: LA MADDOX MD Race: White Ethnicity: Not or Language: Serbian Health Plan: 1?MEDICAID ANTHEM ODM Reason for [...] alcohol and/or drug addiction problems; contact the [facility] 29/05 Crisis Hotline -Text 4HJRN to 796021. Follow-Up Information With: Address: When: LA MADDOX MD [facility] [address] [facility]/ [address] [place] [address] , only if needed Future [...] Dosin.000 kg Body Mass Index: 27.55 kg/m2 [place] Body Weight Calculated: 56.909 kg BSA Measured: [...] these instructions at home: Medicines ? Take izwi-jve-qzlclkx and prescription medicines only as told by [...] la cruz (more content not included)... Normal [facility] Patient Handouton 01-18-2024 Patient Handout ENT Cough, [...] these instructions at home: Medicines ? Take ojqj-evq-aaksnam and prescription medicines only as told by [...] a condition that needs treatment. ? Take wrod-jga-ihetqkn and prescription medicines only as told by [...] provider. Document Revised: 11/11/2019 Document Reviewed: 11/11/2019 Elsevier Patient Education ? 2022 [employer] [facility] PAP ACOG PANEL 2: 21 to 29on 08-30-[address] [facility] Comment on above: Performed By: #### [id number] #### [facility] [address] [address] [address] Jalyn Medrano Age Gdln ACOG Testing - [facility] Comment on above: Performed By: #### 4 [id number] #### [facility] [address] [address] [address] Jalyn Medrano DIAGNOSIS: Comment [facility] Comment on above: Result Comment: NEGA TIVE FOR INTRAEPITHELIAL LESION OR MALIGNANCY. Performed By: #### [id number] #### [facility] [address] [place] [address] Dr. Jalyn Medrano Methodology: Comment [facility] Comment on above: Result Comment: This liquid based ThinPrep(R) pap test was screened with the use of an image guided system. Performed By: #### [id number] #### [facility] [address] [address] [address] Jalyn Medrano Note: Comment [facility] Comment on above: Result Comment: The Pap smear is a screening test designed to aid in the detection of premalignant and malignant conditions of the uterine cervix. It is not a diagnostic procedure and should not be used as the sole means of detecting cervical cancer. Both false-positive and false-negative reports do occur. . Performed By: #### [id number] #### [facility] [address] [address] [address] Jalyn Medrano Performed by: Comment [facility] Comment on above: Result Comment: Dorothea Francis, Desktop Engineer (ASCP) Performed By: #### [id number] #### [facility] [address] [address] [address] Jalyn Medrano Reflex Criteria: Comment [facility] Comment on above: Result Comment: The HPV DNA reflex criteria were not met with this specimen result therefore, no HPV testing was performed. . Performed By: #### 4 [id number] #### [facility] [address] [place], [place] [address] Dr. Jalyn Medrano Specimen adequacy: Comment Normal [facility] Comment on above: Result Comment: Sati sfactory for evaluation. Endocervical and/or squamous metaplastic cells (endocervical component) are present. Performed By: #### 4 [id number] #### [facility] [id number] Jalyn Medrano Vital Signs Date Time Vital Sign Value Performing Clinician Faci lity 10-22-2024 10:49-0500 Body weight 79.38 kg Dorothea ALBERT Work Phone: [facility] 10-22-2024 10:49-0500 Diastolic blood pressure 70 mm[Hg] Dorothea ALBERT Work Phone: [facility] 10-22-2024 10:49-0500 Systolic blood pressure 118 mm[Hg] Dorothea ALBERT Work Phone: [facility] 09-23-2024 09:55-0500 Body weight 76.66 kg Shira Naida DO Work Phone: [facility] 09-23-2024 09:55-0500 Diastolic blood pressure 68 mm[Hg] Shira Naida DO Work Phone: [facility] 09-23-2024 09:55-0500 Systolic blood pressure 118 mm[Hg] Shira Naida DO Work Phone: [facility] 08-27-2024 11:12-0400 Body weight 75.66 kg Shira Naida DO Work Phone: [facility] 08-27-2024 11:12-0400 Diastolic blood pressure 64 mm[Hg] Shira Naida DO Work Phone: [facility] 08-27-2024 11:12-0400 Systolic blood pressure 112 mm[Hg] Shira Naida DO Work Phone: [facility] 07-26-2024 09:55-0400 Body weight 75.21 kg [facility] Nurse [facility] 07-26-2024 09:55-0400 Diastolic blood pressure 60 mm[Hg] [facility] Nurse [facility] 07-26-2024 09:55-0400 Systolic blood pressure 120 mm[Hg] [facility] Nurse [facility] Encounters Encounter Date Encounter Type Care Provider Facility Start: 10-22-2024 End: 10-22-2024 Bamboo flowsheet Dorothea ALBERT Work Phone: [facility] Start: 10-22-2024 End: 10-22-2024 Bamboo flowsheet Dorothea ALBERT Work Phone: [facility] Start: 10-22-2024 End: 10-22-2024 ambulatory DOROTHEA BLEVINS Not Available Start: 10-22-2024 End: 10-22-2024 Office outpatient visit 15 minutes Dorothea ALBERT Work Phone: [facility] Comment on above: Second trimester pre gnancy; 21 weeks gestation of ; Encounter for screening for cervical length Start: 09-23-2024 End: 09-23-2024 Bamboo flowsheet Shira Naida DO Work Phone: [facility] Start: 09-23-2024 End: 10-01-2024 Bamboo flowsheet Shira Naida DO Work Phone: [facility] Start: 09-23-2024 End: 10-01-2024 Clinisync Result Encounter Shira Naida DO Work Phone: [facility] External Department Unsolicited Start: 09-23-2024 End: 09-23-2024 Office outpatient visit 15 minutes Shira Naida DO Work Phone: [facility] Comment on above: Well woman exam with routine gynecological exam; Screening, , for anatomic survey; Second trimester ; Exposure to STD Start: 09-23-2024 End: 09-23-2024 Patient encounter procedure Shira Naida DO Work Phone: [facility] Start: 09-23-2024 End: 09-23-2024 ambulatory SHIRA NAIDA Not Available Start: 08-27-2024 End: 08-27-2024 Bamboo flowsheet Shira Naida DO Work Phone: [facility] Start: 08-27-2024 End: 08-27-2024 Bamboo flowsheet Shira Naida DO Work Phone: [facility] Start: 08-27-2024 End: 08-27-2024 Office outpatient visit 15 minutes Shira Naida DO Work Phone: [facility] Comment on above: Second trimester pre gnancy; 13 weeks gestation of Start: 08-27-2024 End: 08-27-2024 ambulatory SHIRA NAIDA Not Available Start: 08-23-2024 End: 08-23-2024 ambulatory SHIRA R [facility] Start: 07-26-2024 End: 07-26-2024 Office outpatient visit 5 minutes [facility] Naida Nurse [facility] Comment on above: GA: 9w1d Start: 07-26-2024 End: 07-26-2024 ambulatory DOROTHEA BLEVINS Not Available Start: 06-21-2024 End: 06-21-2024 ambulatory [facility] Start: 06-19-2024 End: 06-19-2024 ambulatory [place] Pugh [facility] Start: 06-18-2024 End: 06-18-2024 ambulatory OBIE Tahmina [facility] Start: 03-08-2024 End: 03-08-2024 ambulatory [place] MADDOX MD Facility: [facility] Start: 02-07-2024 End: 02-07-2024 ambulatory SHIRA NAIDA Not Available Start: 01-18-2024 End: 01-18-2024 ambulatory [place] MADDOX MD Facility:[facility] Start: 08-25-2021 End: 08-25-[address] SHIRA PASCAL Facility: Procedures Date Procedure Procedure Detail Performing Clinician Start: 09-23-2024 Urnls dip stick/tabl et rgnt non-auto w/o micrscp Shira Naida DO Work Phone: Start: 09-23-2024 IGP,APTIMA HPV,AGE GDLN Shira Hernandezo DO Work Phone: Start: 09-23-2024 Microscopic observat ion [Identifier] in Cervix by Cyto stain Dorothea ALBERT Work Phone: Start: 07-26-2024 Urnls dip stick/tabl et rgnt non-auto w/o micrscp [facility] Work Phone: Plan of Treatment Date Care Activity Detail Author Start: 09-23-2027 Screening for malign ant neoplasm of cervix [facility] Start: 11-21-2024 End: 11-21-2024 Patient encounter procedure 11/21/2024 9:50 AM EST Routine [facility] [address] [place] [address] Nadia Shira, DO [address] [place], [place] [id number] [facility] Start: 10-28-2024 End: 10-28-2024 Professional / ancillary services management 10/28/2024 8:00 AM EST Ancillary Procedure [facility] [address] [place] [address] [facility] Start: 10-22-2024 End: 10-22-2025 US Pelvis transvaginal US OB transvaginal Imaging Routine Encounter for screening for cervical length Expected: 10/22/2024 (Approximate), Expires: 10/22/2025 [facility] Work Phone: Comment on above: Expected: 10/22/2024 (Approximate), Expires: 10/22/2025 Start: 10-22-2024 End: 10-22-2024 Patient encounter procedure 10/22/2024 10:30 AM EST Routine [facility] [address] [place] [address] Dorothea Blevins PA [address] [place], [place] [id number] [facility] Start: 10-14-2024 End: 10-14-2024 Professional / ancillary services management 10/14/2024 11:00 AM EST Ancillary Procedure [facility] [address] [place] [id number] [facility] Start: 09-23-2024 End: 10-23-2024 [...] AM EST Routine [facility] [address] [place] [address] Shira Pascal, [address] [place] [address] [facility] Start: 08-27-2024 End: 08-27-2024 Patient encounter procedure [facility] Comment on above: Arrived Start: 07-26-2024 End: 07-26-2025 ABO/Rh ABO/Rh Lab Routine Missed menses Expected: 07/26/2024 (Approximate), Expires: 07/26/2025 [facility] Comment on above: Expected: 07/26/2024 (Approximate), Expires: 07/26/2025 Start: 07-26-2024 End: 07-26-2025 Blood type and Indirect antibody screen panel - Blood Type and screen Lab Routine Missed menses Expected: 07/26/2024 (Approximate), Expires: 07/26/2025 [facility] Work Phone: Comment on above: Expected: 07/26/2024 (Approximate), Expires: 07/26/2025 Start: 07-26-2024 End: 07-26-2025 Drugs of abuse panel - Urine by Screen method Rapid drug screen, urine Lab Routine Encounter for supervision of normal first in first trimester , unspecified gestational age Expected: 07/26/2024 (Approximate), Expires: 07/26/2025 [facility] Comment on above: Expected: 07/26/2024 (Approximate), Expires: 07/26/2025 Start: 07-26-2024 End: 07-26-2025 US Pelvis transvaginal US OB transvaginal Imaging Routine Missed menses Expected: 07/26/2024 (Approximate), Expires: 07/26/2025 [facility] Comment on above: Expected: 07/26/2024 (Approximate), Expires: 07/26/2025 Start: 07-07-2024 Influenza vaccination Influenza Vacc ine (#1) [facility] Start: 2024 Screening for malign ant neoplasm of cervix [facility] Start: 2015 Screening for malign ant neoplasm of cervix Pap Smear [facility] Bacteria identified in Urine by Culture Urine culture Microbiology Routine Missed menses Ordered: 07/26/2024 [facility] Comment on above: Ordered: 07/26/2024 CBC W Auto Different ial panel - Blood CBC and differential Lab Routine Missed menses Ordered: 07/26/2024 [facility] Comment on above: Ordered: 07/26/2024 CHLAMYDIA TRACHOMATI S (GENITO/STI) CHLAMYDIA TRACHOMATIS (GENITO/STI) Lab Routine Exposure to STD Ordered: 09/23/2024 [facility] Comment on above: Ordered: 09/23/2024 Cytology Cervical or vaginal smear or scraping study Pap Smear Pathology and Cytology Routine Well woman exam with routine gynecological exam Ordered: 09/23/2024 [facility] Work Phone: Comment on above: Ordered: 09/23/2024 Hemoglobin A1c/Hemoglobin.total in Blood Hemoglobin A1c Lab Routine Missed menses Ordered: 07/26/2024 [facility] Comment on above: Ordered: 07/26/2024 Hepatitis B virus surface Ag [Presence] in Serum or Plasma by Immunoassay Hepatitis B surface antigen Lab Routine Missed menses Ordered: 07/26/2024 [facility] Comment on above: Ordered: 07/26/2024 Hepatitis C virus Ab [Presence] in Serum or Plasma by Immunoassay Hepatitis C antibody Lab Routine Missed menses Ordered: 07/26/2024 [facility] Comment on above: Ordered: 07/26/2024 HIV-1/HIV-2 antigen/antibody combination immunoassay HIV-1 and HIV-2 antibodies Lab Routine Missed menses Ordered: 07/26/2024 [facility] Comment on above: Ordered: 07/26/2024 Human papilloma viru s DNA [Presence] in Unspecified specimen by Probe with amplification HPV DNA probe, amplified Microbiology Routine Well woman exam with routine gynecological exam Ordered: 09/23/2024 [facility] Comment on above: Ordered: 09/23/2024 Neisseria gonorrhoea e DNA [Presence] in Unspecified specimen by MICHELLE with probe detection Neisseria gonorrhea DNA probe, direct Lab Routine Exposure to STD Ordered: 09/23/2024 [facility] Comment on above: Ordered: 09/23/2024 Reagin Ab [Presence] in Serum by RPR RPR Lab Routine Missed menses Ordered: 07/26/2024 [facility] Comment on above: Ordered: 07/26/2024 Rubella antibody, IgG Rubella an tibody, IgG Lab Routine Missed menses Ordered: 07/26/2024 [facility] Comment on above: Ordered: 07/26/2024 SURESWAB(R) ADVANCED VAGINITIS PLUS, TMA SURESWAB(R) ADVANCED VAGINITIS PLUS, TMA Pathology and Cytology Routine Exposure to STD Ordered: 09/23/2024 [facility] Comment on above: Ordered: 09/23/2024 Payers Date Payer Category Payer Medicaid [id number] 2022 Medicaid [id number] 1995 Unknown [id number] 2.16.84 [id number] 1995 Unknown [id number] 2.16.8 [id number] 1995 Unknown [id number] 2.16.8 [id number] 1995 Unknown [id number] 2.16.8 [id number] 1995 Unknown [id number] 2.16.8 [id number] 1995 Unknown [id number] 2.16.8 [id number] 1995 Unknown [id number] 2.16.8 [id number] 1995 Unknown [id number] 2.16.84 0.1.249996.3.579.2.9 1995 Unknown [id number] 2.16.84 0.1.494213.3.579.2.9 1995 Unknown [id number] 2.16.84 0.1.161388.3.579.2.9 1995 Unknown [id number] 2.16.84 0.1.725119.3.579.2.9 1995 Unknown [id number] 2.16.84 [id number] 1960 Unknown [id number] Social History Date Type Detail Facility Tobacco smoking stat [facility] Tobacco smoking consumption unknown [facility] Start: 06-06-2024 [facility] Start: 1995 Sex assigned at Not on file [facility] Gender identity Not on file [facility] History of Present illness Narrative 10-22-2024 BETY Chacon - 10/22/2024 10:30 AM EST Note Date & Type Note Facility 10-22-2024 History of Presen t illness Narrative Reason for Appointment: Patient ID: Alla Francis is a 29 y.o. female who presents for Routine Visit Patient presents today for Return OB appointment. MEDICATIONS Current Outpatient Medications Medication Instructions MV-Min-Fe Fum-FA-DHA ( 1 PO) 1 each, Oral, Daily Progesterone 200 mg, Vaginal, Nightly terconazole (Terazol 7) 0.4 % vaginal cream 1 applicator, Vaginal, Nightly ALLERGIES Allergies Allergen Reactions Penicillins Itching, Rash and Swelling Penicillin G PROBLEMS Active Ambulatory Problems Diagnosis Date Noted Cervical shortening affecting 10/14/2024 Resolved Ambulatory Problems Diagnosis Date Noted No [...] Exam Constitutional: Appearance: Normal appearance. She is normal weight. HENT: Head: Normocephalic. Cardiovascular: Rate and Rhythm: Normal rate. Pulses: Normal pulses. Pulmonary: Effort: Pulmonary effort is normal. Breath sounds: Normal breath sounds. Abdominal: Palpations: Abdomen is soft. Musculoskeletal: General: Normal range of motion. Neurological: General: No focal deficit present. Mental Status: She is alert and oriented to person, place, and time. Psychiatric: Mood and Affect: Mood normal. Behavior: Behavior normal. Thought Content: Thought content normal. Judgment: Judgment normal. Vitals and nursing note reviewed. Vitals: There is no height or weight on file to calculate BMI. BP: 118/70 Patient's last menstrual period was 05/23/2024. ASSESSMENT & PLAN ICD-10-CM 1. Second trimester Z34.92 CANCELED: POCT urinalysis dipstick manually resulted 2. 21 weeks gestation of Z3A.21 3. Encounter for screening for cervical length Z36.86 US OB transvaginal Return OB: Patient presents today for a routine obstetrics appointment. Patient is currently 21w5d . Patient states she is doing well but has complaints of being tired due to current . Patient has verbalizes frequent movement. labor precautions was discussed/given Orders Placed This Encounter Procedures US OB transvaginal Patient having round ligament pain, increased with work, asked for work note for 15min breaks every 3-4 hours Follow Up: Patient is to return to office in 4week for routine OB appointment. Documented by BETY Chacon on behalf of: BETY Chacon documented in this encounter [facility] History of Present illness Narrative 09-23-2024 Anjana Torresvivian, JANEY - 09/23/2024 9:30 AM EST Note Date [...] nursing note reviewed. Exam conducted with a glass engraver present. Vitals: There is no height or [...] obtained without difficulty and patient was given msAFP order to have obtained. Orders Placed This [...] nursing note reviewed. Exam conducted with a glass engraver present. Vitals: There is no height or [...] or undercooked meat, and stay away from [facility]. Patient has been consulted regarding any further do's and don'ts of . Patient voiced understanding and all questions and concerns were answered. Follow Up: Patient is to return in 4 weeks for routine OB appointment. Documented by Cleo Kevin LPN on behalf of: Shira Pascal DO documented in this encounter [facility] History of Present illness Narrative 07-26-2024 Mary Grace Dumas LPN - 07/26/2024 9:30 AM EDT Note Date & Type Note Facility 07-26-2024 History of Presen t illness Narrative Reason for Appointment: Patient ID: Alla Francis is a 29 y.o. female who presents for Amenorrhea Patient presents today for a Nurse OB Intake appointment. Patient is 9w1d with a Estimated Date of Delivery: 02/27/25 OB History Para Term AB Living 3 2 2 2 SAB IAB Ectopic Multiple Live Births 2 # Outcome Date GA Lbr Pascual/2nd Weight Sex Type Anes PTL Lv 3 Current 2 Term 06/09/16 6 lb 1 oz M Vag-Spont GRACIELA 1 Term 01/08/13 7 lb 8 oz M Vag-Spont GRACIELA Current Medications: has a current medication list which includes the following prescription(s): mv-min-fe fum-fa-dha. Medical History: Active Ambulatory Problems Diagnosis Date Noted No Active Ambulatory Problems Resolved Ambulatory Problems Diagnosis Date Noted No Resolved Ambulatory Problems No Additional Past Medical History No family history on file. Social History Tobacco Use Smoking status: Not on file Smokeless tobacco: Not on file Substance Use Topics Alcohol use: Not on file Drug use: Not on file History reviewed. No pertinent surgical history. Allergies Allergen Reactions Penicillins Itching, Rash and Swelling Vitals: There is no height or weight on file to calculate BMI. BP: 120/60 Patient's last menstrual period was 05/23/2024. Assessment/Plan Diagnoses and all orders for this visit: Missed menses - Type and screen; Future - ABO/Rh; Future - CBC and differential - Hemoglobin A1c - RPR - Rubella antibody, IgG - Hepatitis B surface antigen - Hepatitis C antibody - HIV-1 and HIV-2 antibodies - Urine culture - US OB transvaginal; Future - POCT , urine manually resulted - POCT urinalysis dipstick manually resulted Encounter for supervision of normal first in first trimester - Rapid drug screen, urine; Future , unspecified gestational age - Rapid drug screen, urine; Future Nurse Note: OB Intake: Patient presents today for first OB visit. Patients history has been reviewed in great detail including any potential risks. Patient signed consent forms and patient desires testing in both trimesters. Patient currently has no complaints and has been advised to drink 6-8 glasses of water a day, eat no raw or undercooked meat, and stay away from [facility]. Patient has also been advised to not change litter boxes and eat 6 small meals a day. Patient has been consulted regarding the do's and don'ts of . Patient was given labs and all questions and concerns were answered. Zofran sent into Pharmacy for patient. Follow Up: Patient is to return in 4 weeks for routine OB appointment. Follow Up: Patient is to have labs drawn at directed and return to office for initial OB appointment with provider. Patient may call office as needed with any concerns or questions. Nurse Visit Completed by: Mary Grace Dumas LPN documented in this encounter [facility] Evaluation note Note Date & Type [...] Exposure to STD documented in this encounter [facility] Evaluation note Note Date & Type Note Facility Evaluation note Diagnosis Second trimester state, incidental 21 weeks gestation of Encounter for screening for cervical length documented in this encounter [facility] Evaluation note Note Date & Type Note Facility Evaluation note Diagnosis Missed menses Encounter for supervision of normal first in first trimester , unspecified gestational age Nausea Nausea alone documented in this encounter [facility] Summary Purpose Family History No Family History Records FoundNo Family History Records FoundNo Family History Records FoundNo Family History Records Found Advance Directives No Advanced Directives Records FoundNo Advanced Directives Records FoundNo Advanced Directives Records FoundNo Advanced Directives Records Found Additional Source Comments INFORMATION SOURCE (unrecogn ized section and content) DATE CREATED AUTHOR 09/11/2021 [facility] DATE CREATED AUTHOR AUTHOR'S ORGANIZ ATION 08/26/2024 [facility] DATE CREATED AUTHOR AUTHOR'S ORGANIZ ATION 10/18/2024 [facility] DATE CREATED AUTHOR AUTHOR'S ORGANIZ ATION 10/25/2024 [facility] EPIC Care Teams (unrecognized sec tion and content) Major Assembly Inspector Relationship Specialty Start Date End Date La Maddox MD [address] [place] [id number] PCP - General Family Medicine 02/05/24 Minoo Flores PA [address] [place] [address] PCP - DANIELA [place] [facility] 05/06/24 Major Assembly Inspector Relationship Specialty Start Date End Date La Maddox MD [address] [place] [id number] PCP - General Family Medicine 02/05/24 Minoo Flores PA [address] [place] [address] PCP - NOMBette [place] [facility] 05/06/24 Major Assembly Inspector Relationship Specialty Start Date End Date La Maddox MD [address] [place] [id number] PCP - General Family Medicine 02/05/24 Minoo Flores PA [address] [place] [address] PCP - NOMBette [place] [facility] 05/06/24 Major Assembly Inspector Relationship Specialty Start Date End Date La Maddox MD [address] [place] [id number] PCP - General Family Medicine 02/05/24 Minoo Flores PA [address] [place] [address] PCP - NOMBette [place] [facility] 05/06/24 Major Assembly Inspector Relationship Specialty Start Date End Date La Maddox MD [address] [place] [phone] PCP - General Family Medicine 02/05/24 Minoo Flores PA [address] [place] [address] PCP - NOMBette [place] [facility] 05/06/24 Major Assembly Inspector Relationship Specialty Start Date End Date La Maddox MD [address] [place] [id number] PCP - General Family Medicine 02/05/24 Minoo Flores PA [address] [place] [address] PCP - NOMBette [place] [facility] 05/06/24 Major Assembly Inspector Relationship Specialty Start Date End Date La Maddox MD [address] [place] [id number] PCP - General Family Medicine 02/05/24 Minoo Flores PA [address] [place] [address] PCP - NOMBette [place] [facility] 05/06/24 Major Assembly Inspector Relationship Specialty Start Date End Date La Maddox MD [address] [place] [address] PCP - General Family Medicine 02/05/24 Reason for Visit (unrecogniz ed section and content) Reason Comments Routine Visit Reason Comments Amenorrhea FOR RECORDS PERTAINING TO PATIENTS WHO ARE [...] BE BASED ON THE PRIMARY CLINICAL RECORDS. [email or web address]. provides no warranty or guarantee of the accuracy or completeness of information in this document.
== END 2024-10-28 08:05 | disposition home or self-care (01) ==
LOC: NOMS 08:05
PROVIDERS: Visit Provider Physician Assistant
DX: Z36.86 Encounter for antenatal screening for cervical length (principal)
CPT/HCPCS: 76817

== ENCOUNTER 2024-12-09 02:52 | Inpatient (IN) | payer MEDICAID, SELFPAY ==
[2024-12-09] VITALS (15 sets, daily range): BP systolic 103–124; BP diastolic 51–64; PULSE 71–94; TEMP 36.6–36.7
--- OUTSIDE RECORDS SUMMARY | 2024-12-09 02:56 | XMS_ITS | CCD ---
Author Organization [facility] Care Team Providers Care Elevator Constructor Electric Name Role Phone DR SHIRA PASCAL Consulting Unavailable NAIDA, DR SILVA Attending Unavailable NAIDA, DR SILVA Admitting Unavailable OBIE FRAGOSO Referring Unavailable LA MADDOX Primary Care Unavailable LA MADDOX Primary Care Unavailable SHIRA PASCAL R Referring Unavailable NAIDA, SHIRA R Referring Unavailable LA MADDOX Primary Care Unavailable SHIRA PASCAL R Referring Unavailable LA MADDOX Primary Care Unavailable Varsha CABRERA, La Pugh Primary Care Provider Minoo Solis Unavailable VARSHA CABRERA, LA Pugh Attending Unavailable VARSHA CABRERA, LA Pugh Primary Care Unavailable LA MADDOX MD Attending Unavailable VARSHA CABRERA, LA Pugh Primary Care Unavailable Varsha CABRERA, La Pugh Primary Care Provider [phone] SHIRA PASCAL R Referring Unavailable LA MADDOX Primary Care Unavailable BARRON ROMAN Attending Unavailable SHIRA PASCAL R Referring Unavailable LA MADDOX Primary Care Unavailable HALLE BATEMAN Admitting Unavailable HALLE BATEMAN Attending Unavailable LA MADDOX Primary Care Unavailable [facility] Consulti ng Unavailable MASSIEL MCKENNA Consulting Unavailable DOROTHEA BLEVINS Attending Unavailable SHIRA PASCAL Attending Unavailable SHIRA PASCAL Attending Unavailable SHIRA PASCAL Attending Unavailable DOROTHEA BLEVINS Attending Unavailable SHIRA PACSAL Attending Unavailable Allergies Allergy Classification Reported Allergen(s) Allergy Type Date of Onset Reaction(s) Facility (20 sources) Penicillins; Translations: [PENICILLINS] Propensity to adverse reactions to drug (disorder) 7 Itching, Rash, Swelling [facility] Repository (12 sources) Penicillin G Drug Allergy 4 [facility] (1 source) Penicillin; Translations: [penicillin] Drug Allergy [facility] Repository (4 sources) Amoxicillin Drug Allergy 5 [facility] Medications Current Medications Medication Drug Class(es) Dates Sig (Normalized) Sig (Original) escitalopram 10 mg oral tablet (2 sources) Serotonin Reuptake Inhibitor take 1 tablet by mouth once daily escitalopram (Lexapro) 10 MG tablet TAKE 1 TABLET BY MOUTH ONCE DAILY Oral for 30 Days Active ferrous sulfate 325 mg oral tablet (2 sources) Start: 11-02-2024 take 1 tablet by mouth at mealtime ferrous sulfate 325 (65 Fe) MG tablet Take 325 mg by mouth in the morning. Take with meals. 11/02/2024 Active ondansetron 4 mg disintegrating oral tablet (1 [...] 08/25/2024 Active MV-Min-Fe Fum-FA-DHA ( 1 PO) (17 sources) MV-Min- Fe Fum-FA-DHA ( 1 PO) Take 1 each by mouth Daily Active progesterone 100 mg vaginal insert (2 sources) Progesterone progesterone (ENDOMETRIN) 100 mg vaginal insert Insert 1 tablet (100 mg total) into the vagina once daily. Active Progesterone 200 MG suppository (3 sources) Start: 10-15-2024 End: 11-14-2024 Progesterone 200 [...] 7 days 45 g 10/21/2024 10/28/2024 Active Completed/Discontinued Medications Medication Drug Class(es) Dates Sig (Normalized) Sig (Original) levonorgestrel 0.296967 mg/hr intrauterine system (2 sources) Progestin, Progestin-containin g Intrauterine Device levonorgestrel (MIRENA) 20 mcg/24 hr (5 years) IUD 1 each by intrauterine route once. Suspended Problems Active Problems Problem Classification Problem Date Documented Date Episodic/Chronic Coagulation and hemorrhagic disorders (1 source) Thrombocytopenia, unspecified; Translations: [Thrombocytopenia, unspecified] Onset: 10-31-2024 Chronic Immunizations and screening for infectious disease (3 [...] encounter] Onset: 06-18-2024 Episodic Other complications of (12 sources) Short cervical length in ; Translations: [Cervical shortening, unspecified trimester] Onset: 10-14-2024 10-14-2024 Episodic Other complications of (1 source) Benign gestational thrombocytopenia; Translations: [Other diseases of the blood and blood-forming organs and certain disorders involving the immune mechanism complicating , second trimester] 10-31-2024 Episodic Other complications of (1 source) Cervical shortening, unspecified trimester; Translations: [Cervical shortening, unspecified trimester] Onset: 10-31-2024 Episodic Other complications of (1 source) Other diseases of the blood and blood-forming organs and certain disorders involving the immune mechanism complicating , second trimester; Translations: [Other diseases of the blood and blood-forming organs and certain disorders involving the immune mechanism complicating , second trimester] Onset: 10-31-2024 Episodic Other hematologic conditions (1 source) History of thrombocytopenia; Translations: [Personal history of diseases of the blood and blood-forming organs and certain disorders involving the immune mechanism] 10-31-2024 Episodic Other and delivery including normal (11 sources) Second trimester ; Translations: [Encounter for supervision of normal , unspecified, second trimester] 08-27-2024 Episodic Other screening for suspected conditions (not mental disorders or infectious disease) (10 sources) Encounter for screening for malignant neoplasm of cervix; Translations: [Patient encounter status] Onset: 08-25-2021 Episodic Residual codes; unclassified (2 sources) Gestation period, 13 weeks; Translations: [13 weeks gestation of ] 08-27-2024 Episodic Residual codes; unclassified (1 source) Gestation period, 21 weeks; Translations: [21 weeks gestation of ] 10-22-2024 Episodic Residual codes; unclassified (3 sources) ultrasound scan abnormal; Translations: [Pyelectasis of fetus on ultrasound] 10-31-2024 Episodic Residual codes; unclassified (1 source) Gestation period, 23 weeks; Translations: [23 weeks gestation of ] 10-31-2024 Episodic Residual codes; unclassified (1 source) 23 weeks gestation of ; Translations: [23 weeks gestation of ] Onset: 10-31-2024 Episodic Residual codes; unclassified (2 sources) Gestation period, 27 weeks; Translations: [27 weeks gestation of ] 12-04-2024 Episodic Residual codes; unclassified (2 sources) Gestation period, 26 weeks; Translations: [26 weeks gestation of ] 11-21-2024 Episodic Unclassified (1 source) Maternal care for other (suspected) abnormality and damage, genitourinary anomalies, not applicable or unspecified; Translations: [Maternal care for other (suspected) abnormality and damage, genitourinary anomalies, not applicable or unspecified] Onset: 10-31-2024 Unclassified (1 source) funneling of the internal cervial Onset: 10-31-2024 Past or Other Problems Problem Classification Problem Date Documented Da te Episodic/Chronic Nausea and vomiting (1 source) Nausea; Translations: [Nausea] 07-26-2024 Episodic NEGATED: Highlighted row has been ruled out!Unclassified (1 source) No known active problems 03-13-2017 Results Test Name Value Interpretation Reference Range Facility Urinalysis macro (dipstick) panel (U)on 12-04-2024 Bilirubin, UA Negative Negative - 4(70) +++ mg/dL [facility] Blood, UA Negative Negative - 50 Pa/mcL [facility] Clarity, UA Clear [facility] Color, UA Yellow [facility] Glucose, UA Negative Negative - 1999(110) ++++ mg/dL [facility] Interpretation and review of laboratory results Abnormal [facility] Ketones, UA Negative Negative - 160(16) ++++ mg/dL [facility] Leukocytes, UA Trace Negative - 500+++ Varinder/mcL [facility] Nitrite, UA Negative Negative - Positive [facility] pH, UA 7 5 - 9 [facility] Protein, UA Trace Negative - 1999(20) ++++ mg/dL [facility] Spec Grav, UA 1.02 1 - 1.03 [facility] Urobilinogen, UA 0.2 0.2 - 12 mg/dL [facility] Urinalysis macro (dipstick) panel (U)on 11-21-2024 Bilirubin, UA Negative Negative - 4(70) +++ mg/dL [facility] Blood, UA Negative Negative - 50 Pa/mcL [facility] Clarity, UA Clear [facility] Color, UA Yellow [facility] Glucose, UA Negative Negative - 1999(110) ++++ mg/dL [facility] Interpretation and review of laboratory results Abnormal [facility] Ketones, UA Negative Negative - 160(16) ++++ mg/dL [facility] Leukocytes, UA Negative Negative - 500+++ Varinder/mcL [facility] Nitrite, UA Negative Negative - Positive [facility] pH, UA 6 5 - 9 [facility] Protein, UA Positive Negative - 1999(20) ++++ mg/dL [facility] Spec Grav, UA 1.025 1 - 1.03 [facility] Urobilinogen, UA 0.2 0.2 - 12 mg/dL [facility] CBC AND AUTO DIFFon 10-31-20 ABSOLUTE BASOPHIL 0.0 X10E9/L Normal 0.0-0.2 [facility] Comment on above: Performed By: #### C BCA, CMP, 70547-8 #### [facility] ([id number]) [address], [address] [place] [address] ABSOLUTE NEUTROPHIL 8.0 X10E9/L High 1.5-6.6 [facility] Comment on above: Performed By: #### C KIANNA PHAM, 88144-9 #### [facility] ([id number]) [address], [address] [place] [address] Basophils/100 WBC (Bld) 0.3 % Normal [facility] Comment on above: Performed By: #### Tahmina PHAM CMP, 87467-4 #### [facility] ([id number]) [address], [address] [place] [address] Eosinophils (Bld) [#/Vol] 0.1 10*3/uL Normal 0.0-0.4 [facility] Comment on above: Performed By: #### Tahmina PHAM CMP, 32628-1 #### [facility] ([id number]) [address], [address] [place] [address] Eosinophils/100 WBC (Bld) 0.7 % Normal [facility] Comment on above: Performed By: #### Tahmina PHAM CMP, 57377-4 #### [facility] ([id number]) [address], [address] [place] [address] Erythrocyte distribution width (RBC) [Ratio] 14.2 % Normal 11.5-15.0 [facility] Comment on above: Performed By: #### Tahmina PHAM CMP, 84475-1 #### [facility] ([id number]) [address], [address] [place] [address] Hematocrit (Bld) [Volume fraction] 31.6 % Low 35-47 [facility] Comment on above: Performed By: #### Tahmina PHAM CMP, 83213-9 #### [facility] ([id number]) [address], [address] [place] [address] Hemoglobin (Bld) [Mass/Vol] 11.3 g/dL Low 11.7-15.5 [facility] Comment on above: Performed By: #### C BCA, CMP, 13130-2 #### [facility] ([id number]) [address], [facility] [address] [place] [address] Lymphocytes (Bld) [#/Vol] 1.7 10*3/uL Normal 1.0-3.5 [facility] Comment on above: Performed By: #### C VERO, CMP, 33449-9 #### [facility] ([id number]) [address], [facility] [address] [place] [address] Lymphocytes/100 WBC (Bld) 15.5 % Normal [facility] Comment on above: Performed By: #### C VERO, CMP, 36693-4 #### [facility] ([id number]) [address], [facility] [address] [place] [address] MCH (RBC) [Entitic mass] 32.7 pg Normal 27-34 [facility] Comment on above: Performed By: #### C BCA, CMP, 20045-7 #### [facility] ([id number]) [address], [address] [place] [address] MCHC (RBC) [Mass/Vol] 35.8 g/dL Normal 32-36 [facility] Comment on above: Performed By: #### C VERO, CMP, 43048-9 #### [facility] ([id number]) [address], [facility] [address] [place] [address] MCV (RBC) [Entitic vol] 92 fL Normal 80-100 [facility] Comment on above: Performed By: #### C BCA, CMP, 79618-2 #### [facility] ([id number]) [address], [facility] [address] [place] [address] Monocytes (Bld) [#/Vol] 0.9 10*3/uL Normal 0-0.9 [facility] Comment on above: Performed By: #### C BCA, CMP, 86227-8 #### [facility] ([id number]) [address], [address] [place] [address] Monocytes/100 WBC (Bld) 8.5 % Normal [facility] Comment on above: Performed By: #### C BCA, CMP, 96865-5 #### [facility] ([id number]) [address], [address] [place] [address] Neutrophils/100 WBC (Bld) 75.0 % Normal [facility] Comment on above: Performed By: #### C BCA, CMP, 66915-5 #### [facility] ([id number]) [address], [address] [place] [address] Platelet mean volume (Bld) [Entitic vol] 10.8 fL Normal 7-12 [facility] Comment on above: Performed By: #### C BCA, CMP, 38419-1 #### [facility] ([id number]) [address], [address] [place] [address] Platelets (Bld) [#/Vol] 173 10*3/uL Normal 150-450 [facility] Comment on above: Performed By: #### C BCA, CMP, 67098-1 #### [facility] ([id number]) [address], [address] [place] [address] RBC COUNT 3.46 X10E12/L Low 3.80-5.20 [facility] Comment on above: Performed By: #### C BCA, CMP, 05518-8 #### [facility] ([id number]) [address], [address] [place] [address] WBC (Bld) [#/Vol] 10.7 10*3/uL Normal 4.0-11.0 [facility] Comment on above: Performed By: #### C BCA, CMP, 12143-2 #### [facility] ([id number]) [address], [address] [place] [address] CHLAMYDIA/GC BY PCRon 2023 CHLAMYDIA/GC BY PCR SPECIMEN SOURCE CERVIX CHLAMYDIA DNA(PCR) Negative (qualifier value) Chlamydia trachomatis not detected by nucleic acid amplification. This does not exclude the possibility of infection because results are dependent on adequate specimen collection. GONORRHOEAE DNA(PCR) Negative (qualifier value) Neisseria gonorrhoeae not detected by nucleic acid amplification. This does not exclude the possibility of infection because results are dependent on adequate specimen collection. Normal [facility] Comment on above: Performed By: #### C GS #### [facility] ([id number]) [address], [address] [place] [address] COMPREHENSIVE METABOLIC PANE Erick 10-31-2024 Albumin [Mass/Vol] 3.4 g/dL Normal 3.2-5.3 [facility] Comment on above: Performed By: #### C VERO CMP, 53342-4 #### [facility] ([id number]) [address], [address] [place] [address] ALP [Catalytic activity/Vol] 77 U/L Normal 39-130 [facility] Comment on above: Performed By: #### C VERO CMP, 32935-6 #### [facility] ([id number]) [address], [address] [address] ALT [Catalytic activity/Vol] 12 U/L Normal 0-31 [facility] Comment on above: Performed By: #### C VERO CMP, 87784-4 #### [facility] ([id number]) [address], [address] [address] Anion gap [Moles/Vol] 12 mmol/L Normal 5-15 [facility] Comment on above: Performed By: #### C BCA CMP, 14983-2 #### [facility] ([id number]) [address], [address] [address] AST [Catalytic activity/Vol] 14 U/L Normal 0-41 [facility] Comment on above: Performed By: #### C BCA, CMP, 83428-1 #### [facility] ([id number]) [address], [address] [place] [address] Bilirubin [Mass/Vol] 0.3 mg/dL Normal 0.3-1.2 [facility] Comment on above: Performed By: #### C BCA, CMP, 29212-1 #### [facility] ([id number]) [address], [address] [place] [address] Calcium [Mass/Vol] 8.5 mg/dL Normal 8.5-10.5 [facility] Comment on above: Performed By: #### C BCA, CMP, 25951-9 #### [facility] ([id number]) [address], [address] [place] [address] Chloride [Moles/Vol] 106 mmol/L Normal 98-109 [facility] Comment on above: Performed By: #### C BCA, CMP, 45646-3 #### [facility] ([id number]) [address], [address] [place] [address] CO2 [Moles/Vol] 22 mmol/L Normal 22-32 [facility] Comment on above: Performed By: #### C BCA, CMP, 48605-7 #### [facility] ([id number]) [address], [address] [place] [address] Creatinine [Mass/Vol] 0.49 mg/dL Normal 0.40-1.00 [facility] Comment on above: Result Comment: METH OD TRACEABLE TO IDMS STANDARD Performed By: #### C BCA, CMP, 50588-8 #### [facility] ([id number]) [address], [address] [place] [address] eGFR (CKD-EPI) NON-RACE DEPENDENT >90 Normal >59 [facility] Comment on above: Result Comment: Reported eGFR is based on the CKD-EPI 2020 equation that does not use a race coefficient. Performed By: #### C KIANNA PHAM, 34825-1 #### [facility] ([id number]) [address], [address] [place] [address] Glucose [Mass/Vol] 76 mg/dL Normal 65-99 [facility] Comment on above: Performed By: #### C KIANNA PHAM, 51240-3 #### [facility] ([id number]) [address] [address] [place] [address] Potassium [Moles/Vol] 3.4 mmol/L Low 3.5-5.0 [facility] Comment on above: Performed By: #### C KIANNA PHAM, 19144-2 #### [facility] ([id number]) [address], [facility] [address] [place] [address] Protein [Mass/Vol] 6.4 g/dL Normal 6.0-8.0 [facility] Comment on above: Performed By: #### C KIANNA PHAM, 35071-3 #### [facility] ([id number]) [address], [address] [place] [address] Sodium [Moles/Vol] 140 mmol/L Normal 134-146 [facility] Comment on above: Performed By: #### C KIANNA PHAM, 32431-5 #### [facility] ([id number]) [address], [address] [place] [address] Urea nitrogen [Mass/Vol] 5 mg/dL Normal 5-23 [facility] Comment on above: Performed By: #### C VERO, CMP, 01955-9 #### [facility] ([id number]) [address], [address] [place] [address] DRUG SCREEN, URINEon 12-26-2 024 AMPHETAMINE/METHAMP Negative Normal NEG [facility] Comment on above: Result Comment: AMPH /METH screening cut off = 1000 ng/mL Performed By: #### D KRISHNA #### [facility] ([id number]) [address], [address] [place] [address] BARBITURATES Negative Normal NEG [facility] Comment on above: Result Comment: Yamileth iturates screening cut off value = 200 ng/mL Performed By: #### D KRISHNA #### [facility] ([id number]) [address] [place] [address] BENZODIAZEPINES Negative Normal NEG [facility] Comment on above: Result Comment: [place] odiazepines screening cut off value = 200 ng/mL Performed By: #### D KRISHNA #### [facility] ([id number]) [address], [address] [place] [address] CANNABINOIDS Negative Normal NEG [facility] Comment on above: Result Comment: Kristyn abinoids/THC screening cut off value = 50 ng/mL Performed By: #### D KRISHNA #### [facility] ([id number]) [address], [address] [place] [address] COCAINE METABOLITE Negative Normal NEG [facility] Comment on above: Result Comment: Coca ine screening cut off value = 300 ng/mL Performed By: #### D KRISHNA #### [facility] ([id number]) [address], [address] [place] [address] ECSTASY Negative Normal NEG [facility] Comment on above: Result Comment: Ecst asy screening cut off value = 500 ng/mL This report is intended for use in clinical monitoring or management of patients. Performed By: #### D KRISHNA #### [facility] ([id number]) [address], [address] [place] [address] METHADONE Negative Normal NEG [facility] Comment on above: Result Comment: Meth adone screening cut off value = 300 ng/mL. Performed By: #### D KRISHNA #### [facility] ([id number]) [address], [address] [address] OPIATES Negative Normal NEG [facility] Comment on above: Result Comment: Opia sabino screening cut off value = 300 ng/mL NOTE: This test is used for the detection of codeine, hydrocodone (>1000 ng/mL), morphine and hydromorphone (>900 ng/mL) in urine. Performed By: #### D KRISHNA #### [facility] ([id number]) [address] [address] OXYCODONE Negative Normal NEG [facility] Comment on above: Result Comment: Oxyc odone screening cut off value = 300 ng/mL NOTE: This test is used for the detection of oxycodone and oxymorphone in urine. Performed By: #### D KRISHNA #### [facility] ([id number]) [address] [address] PHENCYCLIDINE Negative Normal NEG [facility] Comment on above: Result Comment: Phen cyclidine screening cut off value = 25 ng/mL Performed By: #### D KRISHNA #### [facility] ([id number]) [address] [address] Fibronectin. Ql (Vag fl d)on 10-31-2024 FIBRONECTIN Negative Normal NEG [facility] Comment on above: Performed By: #### 2 0404-0, VPPCR #### [facility] ([id number]) [address] [address] STREP B SCREEN CULTUREon S. agalactiae Org specific cx Ql (Vag+Rectum) CULTURE RESULTS NEGATIVE FOR GROUP B STREPTOCOCCUS BY NUCLEIC ACID AMPLIFICATION [facility] Comment on above: Performed By: #### 7 2607-5 #### [facility] ([id number]) [address] [address] T. pallidum IgG+IgM IA Ql (S )on 10-31-2024 Syphilis Total <0.2 Normal 0.0-0.8 [facility] Comment on above: Result Comment: NON REACTIVE No serologic evidence of infection to Treponema pallidum (syphilis). Repeat testing may be considered in patients with suspected acute or primary syphilis in 2 to 4 weeks. Performed By: #### C BCA, CMP, 27178-5 #### [facility] ([id number]) [address], [address] [place] [address] URINALYSISon 10-31-2024 Bilirubin Ql (U) Negative Normal NEG [facility] Comment on above: Performed By: #### U A #### [facility] ([id number]) [address] [place] [address] BLOOD/HGB Negative Normal NEG [facility] Comment on above: Performed By: #### U A #### [facility] ([id number]) [address] [place] [address] Color (U) YELLOW Normal YELLOW [facility] Comment on above: Performed By: #### U A #### [facility] ([id number]) [address], [address] [address] [place] [address] Glucose Ql (U) Negative Normal NEG [facility] Comment on above: Performed By: #### U A #### [facility] ([id number]) [address], [address] [place] [address] Ketones Ql (U) Negative Normal NEG [facility] Comment on above: Performed By: #### U A #### [facility] ([id number]) [address], [address] [place] [address] Leukocyte esterase Test strip Ql (U) Negative Normal NEG [facility] Comment on above: Performed By: #### U A #### [facility] ([id number]) [address], [address] [place] [address] Nitrite Ql (U) Negative Normal NEG [facility] Comment on above: Performed By: #### U A #### [facility] ([id number]) [address] [address] [place] [address] pH (U) 7.0 [pH] Normal 5.0-8.5 [facility] Comment on above: Performed By: #### U A #### [facility] ([id number]) [address] [address] [place] [address] Protein Ql (U) Negative Normal NEG [facility] Comment on above: Performed By: #### U A #### [facility] ([id number]) [address] [address] [place] [address] Specific gravity (U) [Rel density] 1.008 Normal 1.003-1.035 [facility] Comment on above: Performed By: #### U A #### [facility] ([id number]) [address] [address] TURBIDITY CLEAR Normal CLEAR [facility] Comment on above: Performed By: #### U A #### [facility] ([id number]) [address] [address] [place] [address] Urobilinogen (U) [Mass/Vol] mg/dL Normal <1.1 [facility] Comment on above: Performed By: #### U A #### [facility] ([id number]) [address] [address] [place] [address] URINE CULTUREon 10-31-2024 Bacteria identified Cx Nom (U) SPECIMEN NOTES URINE RECEIVED WITHOUT PRESERVATIVE CULTURE RESULTS NO GROWTH AT <1000 CFU/mL Normal [facility] Comment on above: Performed By: #### 6 30-4 #### [facility] ([id number]) [address] [address] [place] [address] VAGINITIS PANEL PCRon 2023 VAGINITIS PANEL PCR BACT. VAGINOSIS DNA Not detected (qualifier value) Qualitative results are reported based on detection and quantitation of targeted organism markers which include: Lactobacillus spp. (L. crispatus and L. jensenii), Gardnerella vaginalis, Atopobium vaginae, Bacterial Vaginosis Associated Bacteria-2 (BVAB-2) and Megasphaera-1 VIVI SPECIES DNA Not detected (qualifier value) Vivi species not detected include: C. albicans, C. tropicalis, C. parapsilosis or C. dubliniensis VIVI KRUSEI DNA Not detected (qualifier value) No Vivi krusei detected VIVI GLABRATA DNA Not detected (qualifier value) No Vivi glabrata detected TRICHOMONAS VAG DNA Not detected (qualifier value) No Trichomonas vaginalis detected NOTE BD MAX Vaginal Panel has not been evaluated for patients under 18 years old. Results for these patients should be reviewed and assessed in accordance with clinical presentation to determine patient diagnosis. Normal [facility] Comment on above: Performed By: #### 2 0404-0, VPPCR #### [facility] ([id number]) [address] [place] [address], [address] [place] [address] Outside Recordson 10-28-2024 Outside Records [id number] .00OTGTIFF [facility] Outside Recordson 10-15-2024 Outside Records [id number] .[facility] IGP,APTIMA HPV,AGE GDLNon AGE GDLN ACOG TESTING Note . [facility] Comment on above: TESTS RESULT FLAG UN ITS REF RANGE LAB Clinician Provided Cytology Information Source.............Cervix No. of containers..01 ThinPrep Vial Age Algo ACOG Sabino... FLAG LEGEND: L-Low Normal,H-High Normal,LL-Alert Low,HH-Alert High <-Panic Low,>-Panic High,A-Abnormal,AA-Critical Abnormal Performed at: 01 =[address] [address] Kiera Bennett MD, HPV APTIMA Negative Negative [facility] Comment on above: This nucleic acid am plification test detects fourteen high- risk HPV types (16,18,31,33,35,39,45,51,52,56,58,59,66,68) without differentiation. Performed at: =[address] [id number] Conditioner Tender: Kiera Bennett MD, Phone: [phone] Performed at: [address] [id number] Conditioner Tender: Kiera Bennett MD, Phone: [phone] IGP, APTIMA HPV, RFX 16/18,45 Note . [facility] Comment on above: TESTS RESULT FLAG UN ITS REF RANGE LAB DIAGNOSIS: 02 NEGATIVE FOR INTRAEPITHELIAL LESION OR MALIGNANCY. Specimen adequacy: 02 Satisfactory for evaluation. No endocervical component is identified. Performed by: Chris Brown Secretary Of Police (ASCP) . 02 Note: Note 02 The [...] <-Panic Low,>-Panic High,A-Abnormal,AA-Critical Abnormal Performed at: [address] [address] Kiera Bennett MD, SPATULA[facility]ONE [facility] [facility] Urinalysis macro (dipstick) panel (U)on 09-23-2024 Bilirubin, UA Negative Negative - 4(70) +++ mg/dL [facility] Blood, UA Negative Negative - 50 Pa/mcL [facility] Clarity, UA Clear [facility] re Color, UA Yellow [facility] Glucose, UA Negative Negative - 1999(110) ++++ mg/dL [facility] Interpretation and review of laboratory results Normal [facility] Ketones, UA Negative Negative - 160(16) ++++ mg/dL [facility] Leukocytes, UA Negative Negative - 500+++ Varinder/mcL [facility] Nitrite, UA Negative Negative - Positive [facility] pH, UA 6.5 5 - 9 [facility] [employer] Protein, UA Negative Negative - 1999(20) ++++ mg/dL [facility] Spec Grav, UA 1.02 1 - 1.03 [facility] Urobilinogen, UA 0.2 0.2 - 12 mg/dL [facility] CBC AND AUTO DIFFon 10-18-20 24 ABSOLUTE BASOPHIL 0.0 X10E9/L Normal 0.0-0.2 [facility] Comment on above: Performed By: #### H A1C, CBCA, 5196-1, 09052-1, 35994-6, 20690-4, 8014-3, 45657-8 #### [facility] ([id number]) [address], [address] [place] [address] ABSOLUTE NEUTROPHIL 7.7 X10E9/L High 1.5-6.6 [facility] Comment on above: Performed By: #### H A1C, CBCA, 5196-1, 55962-2, 42114-0, 34586-5, 8014-3, 49352-1 #### [facility] ([id number]) [address], [address] [place] [address] Basophils/100 WBC (Bld) 0.3 % Normal [facility] Comment on above: Performed By: #### H A1C, CBCA, 5196-1, 07803-7, 28100-4, 11239-8, 8014-3, 68609-6 #### [facility] ([id number]) [address], [address] [place] [address] Eosinophils (Bld) [#/Vol] 0.1 10*3/uL Normal 0.0-0.4 [facility] Comment on above: Performed By: #### H A1C, CBCA, 5196-1, 58758-3, 25073-8, 72815-4, 8014-3, 94573-2 #### [facility] ([id number]) [address], [address] [place] [address] Eosinophils/100 WBC (Bld) 0.9 % Normal [facility] Comment on above: Performed By: #### H A1C, CBCA, 5196-1, 09399-9, 22646-6, 28634-7, 8014-3, 89583-6 #### [facility] ([id number]) [address], [facility] [address] [place] [address] Erythrocyte distribution width (RBC) [Ratio] 13.6 % Normal 11.5-15.0 [facility] Comment on above: Performed By: #### H A1C, CBCA, 5196-1, 68552-1, 33239-6, 43853-3, 8014-3, 17524-3 #### [facility] ([id number]) [address], [facility] [address] [place] [address] Hematocrit (Bld) [Volume fraction] 35.7 % Normal 35-47 [facility] Comment on above: Performed By: #### H A1C, CBCA, 5196-1, 31478-6, 39028-7, 31062-6, 8014-3, 62746-5 #### [facility] ([id number]) [address], [facility] [address] [place] [address] Hemoglobin (Bld) [Mass/Vol] 12.5 g/dL Normal 11.7-15.5 [facility] Comment on above: Performed By: #### H A1C, CBCA, 5196-1, 06815-1, 02721-4, 22396-6, 8014-3, 79164-4 #### [facility] ([id number]) [address] [address] [place] [address] Lymphocytes (Bld) [#/Vol] 1.7 10*3/uL Normal 1.0-3.5 [facility] Comment on above: Performed By: #### H A1C, CBCA, 5196-1, 20189-8, 09228-3, 32849-0, 8014-3, 36894-9 #### [facility] ([id number]) [address] [address] [place] [address] Lymphocytes/100 WBC (Bld) 16.9 % Normal [facility] Comment on above: Performed By: #### H A1C, CBCA, 5196-1, 85750-9, 11248-4, 36936-4, 8014-3, 49712-1 #### [facility] ([id number]) [address], [address] [place] [address] MCH (RBC) [Entitic mass] 31.8 pg Normal 27-34 [facility] Comment on above: Performed By: #### H A1C, CBCA, 5196-1, 05790-9, 35343-5, 36901-0, 8014-3, 28415-3 #### [facility] ([id number]) [address], [address] [place] [address] MCHC (RBC) [Mass/Vol] 35.1 g/dL Normal 32-36 [facility] Comment on above: Performed By: #### H A1C, CBCA, 5196-1, 46787-9, 80799-2, 60405-6, 8014-3, 98480-7 #### [facility] ([id number]) [address], [address] [place] [address] MCV (RBC) [Entitic vol] 91 fL Normal 80-100 [facility] Comment on above: Performed By: #### H A1C, CBCA, 5196-1, 17049-5, 95931-6, 85371-2, 8014-3, 50805-1 #### [facility] ([id number]) [address], [address] [place] [address] Monocytes (Bld) [#/Vol] 0.6 10*3/uL Normal 0-0.9 [facility] Comment on above: Performed By: #### H A1C, CBCA, 5196-1, 06008-5, 37536-0, 26007-5, 8014-3, 02075-7 #### [facility] ([id number]) [address], [address] [place] [address] Monocytes/100 WBC (Bld) 5.7 % Normal [facility] Comment on above: Performed By: #### H A1C, CBCA, 5196-1, 42550-8, 40254-8, 04659-9, 8014-3, 53794-2 #### [facility] ([id number]) [address], [facility] [address] [place] [address] Neutrophils/100 WBC (Bld) 76.2 % Normal [facility] Comment on above: Performed By: #### H A1C, CBCA, 5196-1, 89891-4, 43373-0, 97562-7, 8014-3, 14125-1 #### [facility] ([id number]) [address], [facility] [address] [place] [address] Platelet mean volume (Bld) [Entitic vol] 10.8 fL Normal 7-12 [facility] Comment on above: Performed By: #### H A1C, CBCA, 5196-1, 38539-8, 67472-3, 40986-5, 8014-3, 06741-4 #### [facility] ([id number]) [address], [address] [address] Platelets (Bld) [#/Vol] 153 10*3/uL Normal 150-450 [facility] Comment on above: Performed By: #### H A1C, CBCA, 5196-1, 89944-7, 32349-4, 10249-6, 8014-3, 07933-9 #### [facility] ([id number]) [address], [facility] [address] [place] [address] RBC COUNT 3.94 X10E12/L Normal 3.80-5.20 [facility] Comment on above: Performed By: #### H A1C, CBCA, 5196-1, 73237-7, 30947-8, 06408-9, 8014-3, 79335-8 #### [facility] ([id number]) [address], [address] [place] [address] WBC (Bld) [#/Vol] 10.1 10*3/uL Normal 4.0-11.0 [facility] Comment on above: Performed By: #### H A1C, CBCA, 5196-1, 73343-4, 08432-5, 09695-6, 8014-3, 53691-2 #### [facility] ([id number]) [address], [address] [place] [address] DRUG SCREEN, URINEon 024 AMPHETAMINE/METHAMP Negative Normal NEG [facility] Comment on above: Result Comment: AMPH /METH screening cut off = 1000 ng/mL Performed By: #### 2 0415-6 #### [facility] ([id number]) [address], [address] [place] [address] BARBITURATES Negative Normal NEG [facility] Comment on above: Result Comment: Yamileth iturates screening cut off value = 200 ng/mL Performed By: #### 2 0415-6 #### [facility] ([id number]) [address], [address] [place] [address] BENZODIAZEPINES Negative Normal NEG [facility] Comment on above: Result Comment: [place]on odiazepines screening cut off value = 200 ng/mL Performed By: #### 2 0415-6 #### [facility] ([id number]) [address], [address] [place] [address] CANNABINOIDS Negative Normal NEG [facility] Comment on above: Result Comment: Kristyn abinoids/THC screening cut off value = 50 ng/mL Performed By: #### 2 0415-6 #### [facility] ([id number]) [address], [address] [place] [address] COCAINE METABOLITE Negative Normal NEG [facility] Comment on above: Result Comment: Coca ine screening cut off value = 300 ng/mL Performed By: #### 2 0415-6 #### [facility] ([id number]) [address], [address] [place] [address] ECSTASY Negative Normal NEG [facility] Comment on above: Result Comment: Ecst asy screening cut off value = 500 ng/mL This report is intended for use in clinical monitoring or management of patients. Performed By: #### 2 0415-6 #### [facility] ([id number]) [address], [address] [place] [address] METHADONE Negative Normal [facility] Comment on above: Result Comment: Meth adone screening cut off value = 300 ng/mL. Performed By: #### 2 0415-6 #### [facility] ([id number]) [address], [address] [place] [address] OPIATES Negative Normal [facility] Comment on above: Result Comment: Opia sabino screening cut off value = 300 ng/mL NOTE: This test is used for the detection of codeine, hydrocodone (>1000 ng/mL), morphine and hydromorphone (>900 ng/mL) in urine. Performed By: #### 2 0415-6 #### [facility] ([id number]) [address], [address] [place] [address] OXYCODONE Negative Normal NEG [facility] Comment on above: Result Comment: Oxyc odone screening cut off value = 300 ng/mL NOTE: This test is used for the detection of oxycodone and oxymorphone in urine. Performed By: #### 2 0415-6 #### [facility] ([id number]) [address], [address] [place] [address] PHENCYCLIDINE Negative [facility] Comment on above: Result Comment: Phen cyclidine screening cut off value = 25 ng/mL Performed By: #### 2 0415-6 #### [facility] ([id number]) [address], [address] [place] [address] HBV surface Ag IA Qlon 08-23 HEPATITIS B SURF AG Negative Normal NEG [facility] Comment on above: Performed By: #### H A1C, CBCA, 5196-1, 46470-2, 36947-9, 58333-2, 8014-3, 44834-5 #### [facility] ([id number]) [address], [address] [place] [address] HCG ( test) Ql (U)o n 08-23-2024 Beta HCG ( test) Ql (U) Positive Abnormal NEG [facility] Comment on above: Performed By: #### 2 106-3 #### [facility] ([id number]) [address] [facility] [place] [address] HCG.beta subunit IA 3rd IS Q non 08-23-2024 HCG.beta subunit Qn 628346 m[IU]/mL Normal [facility] Comment on above: Result Comment: NEW REFERENCE [...] neoplasms. Performed By: #### 2 0415-6 #### [facility] ([id number]) [address], [address] [place] [address] HCV Ab IA Qlon 08-23-2024 ANTI HCV W/PCR REFLX Non-Reactive Normal NRCT [facility] Comment on above: Result Comment: If recent infection suspected, recommend repeat testing (>2 months). Kmgbbo-ao-lswimb ratio is <0.80. Performed By: #### H A1C, CBCA, 5196-1, 43983-8, 65157-8, 12863-3, 8014-3, 09164-8 #### [facility] ([id number]) [address] [place] [address], [address] [place] [address] HGB A1C (GLYCO-HGB)on 2023 Glucose [Mass/Vol] 91 mg/dL Normal [facility] Comment on above: Performed By: #### H A1C, CBCA, 5196-1, 15461-8, 37140-8, 91557-3, 8014-3, 60018-8 #### [facility] ([id number]) [address] [place] [address], [address] [place] [address] HbA1c (Bld) [Mass fraction] 4.8 % Normal 4.4-5.6 [facility] Comment on above: Result Comment: NOTE ADA Guidelines Result HgbA1c Normal : less than 5.7 % Prediabetes : 5.7 % to 6.4 % Diabetes : > 6.4 % Use with caution in patients with abnormal hemoglobin variants as the half-life of red blood cells and in vivo glycation rates are affected. Performed By: #### H A1C, CBCA, 5196-1, 94407-3, 56457-2, 60883-8, 8014-3, 82785-2 #### [facility] ([id number]) [address] [place] [address], [address] [place] [address] HIV 1+2 Ab+HIV1 p24 Ag IA Ql on 08-23-2024 HIV 1 and 2 Ab/Ag Screen Non-Reactive Normal NRCT [facility] Comment on above: Result Comment: This information [...] Performed By: #### H A1C, CBCA, 5196-1, 47693-6, 82318-6, 42146-0, 8014-3, 48919-0 #### [facility] ([id number]) [address] [place] [address], [address] [address] Rubella virus IgG Qn (S)on 1 RUBELLA IgG 16 IU/mL Normal [facility] Comment on above: Result Comment: Interpretation-------- <8 NEGATIVE-considered Not Immune 8-9 EQUIVOCAL-consider retesting with new specimen >9 POSITIVE-considered Immune Performed By: #### 2 0415-6 #### [facility] ([id number]) [address] [place] [address], [address] [address] T. pallidum IgG+IgM IA Ql (S )on 08-23-2024 Syphilis Total <0.2 Normal 0.0-0.8 [facility] Comment on above: Result Comment: NON REACTIVE No serologic evidence of infection to Treponema pallidum (syphilis). Repeat testing may be considered in patients with suspected acute or primary syphilis in 2 to 4 weeks. Performed By: #### 2 0415-6 #### [facility] ([id number]) [address] [place] [address], [address] [place] [address] URINALYSISon 08-23-2024 Amorphous sediment LM Ql (Urine sed) PRESENT Abnormal NONE [facility] Comment on above: Performed By: #### U A #### [facility] ([id number]) [address], [address] [place] [address] Bilirubin Ql (U) Negative Normal NEG [facility] Comment on above: Performed By: #### U A #### [facility] ([id number]) [address], [address] [place] [address] BLOOD/HGB Negative Normal NEG [facility] Comment on above: Performed By: #### U A #### [facility] ([id number]) [address], [address] [place] [address] Color (U) ORANGE Abnormal YELLOW [facility] Comment on above: Performed By: #### U A #### [facility] ([id number]) [address], [address] [place] [address] Glucose Ql (U) Negative Normal NEG [facility] Comment on above: Performed By: #### U A #### [facility] ([id number]) [address], [address] [place] [address] Ketones Ql (U) Negative Normal NEG [facility] Comment on above: Performed By: #### U A #### [facility] ([id number]) [address], [address] [place] [address] Leukocyte esterase Test strip Ql (U) Negative Normal NEG [facility] Comment on above: Performed By: #### U A #### [facility] ([id number]) [address], [address] [place] [address] Nitrite Ql (U) Negative Normal NEG [facility] Comment on above: Performed By: #### U A #### [facility] ([id number]) [address], [address] [place] [address] pH (U) 6.5 [pH] Normal 5.0-8.5 [facility] Comment on above: Performed By: #### U A #### [facility] ([id number]) [address] [place] [address] [address] [place] [address] Protein Ql (U) Trace Abnormal NEG [facility] Comment on above: Performed By: #### U A #### [facility] ([id number]) [address] [place] [address] [address] [place] [address] R.B.CELLS 1 /hpf Normal 0-5 [facility] Comment on above: Performed By: #### U A #### [facility] ([id number]) [address] [place] [address] [address] [place] [address] Specific gravity (U) [Rel density] 1.023 Normal 1.003-1.035 [facility] Comment on above: Performed By: #### U A #### [facility] ([id number]) [address] [place] [address], [address] [place] [address] SQUAMOUS EPITHELIUM 15 /hpf High 0-5 [facility] Comment on above: Performed By: #### U A #### [facility] ([id number]) [address] [place] [address], [address] [place] [address] TURBIDITY CLOUDY Abnormal CLEAR [facility] Comment on above: Performed By: #### U A #### [facility] ([id number]) [address] [place] [address] [address] [place] [address] Urobilinogen (U) [Mass/Vol] mg/dL Normal <1.1 [facility] Comment on above: Performed By: #### U A #### [facility] ([id number]) [address] [place] [address] [address] [place] [address] W.B.CELLS 1 /hpf Normal 0-5 [facility] Comment on above: Performed By: #### U A #### [facility] ([id number]) [address] [facility], [address] [place] [address] URINE CULTUREon 08-23-2024 Bacteria identified Cx Nom (U) CULTURE RESULTS 10-50,000 ORGANISMS/mL NORMAL UROGENITAL FRANCOISE Normal [facility] Comment on above: Performed By: #### 2 0415-6 #### [facility] ([id number]) [address], [address] [place] [address] Outside Recordson 07-30-2024 Outside Records [id number] .[id number] [facility] HCG ( test) Ql (U)o n 07-26-2024 Interpretation and review of laboratory results Abnormal [facility] Preg Test, Ur [facility] macro (dipstick) panel (U)on 07-26-2024 Bilirubin, UA Positive Negative - 4(70) +++ mg/dL [facility] Blood, UA Negative Negative - 50 Pa/mcL [facility] Clarity, UA Clear [facility] re Color, UA Yellow [facility] Glucose, UA Negative Negative - 1999(110) ++++ mg/dL [facility] Interpretation and review of laboratory results Abnormal [facility] Ketones, UA Negative Negative - 160(16) ++++ mg/dL [facility] Leukocytes, UA Negative Negative - 500+++ Varinder/mcL [facility] Nitrite, UA Negative Negative - Positive [facility] pH, UA 5.5 5 - 9 [facility] Protein, UA Trace Negative - 1999(20) ++++ mg/dL [facility] Spec Grav, UA 1.030 1 - 1.03 [facility] Urobilinogen, UA 0.2 0.2 - 12 mg/dL [facility] HCG.beta subunit IA 3rd IS Q non 06-21-2024 HCG.beta subunit Qn 647 m[IU]/mL Normal [facility] Comment on above: Result Comment: NEW REFERENCE [...] neoplasms. Performed By: #### 2 0415-6 #### [facility] ([id number]) [address] [place] [address], [address] [place] [address] HCG.beta subunit IA 3rd IS Q non 06-19-2024 HCG.beta subunit Qn 339 m[IU]/mL Normal [facility] Comment on above: Result Comment: NEW REFERENCE [...] neoplasms. Performed By: #### 2 0415-6 #### [facility] ([id number]) [address] [place] [address], [address] [place] [address] XR FINGER LT 2ND DIGIT MIN 2 [...] Zaragoza DO on 06/18/2024 4:14 PM Normal [facility] Ambulatory Patient Summaryon 03-08-2024 Ambulatory Patient Summary [facility] [address] [facility], [facility], [address] - Visit Summary For ALLA FRANCIS Age: 28 years Sex: FEMALE : 1995 Address: [address] [place] [address], [address] Home: Work: -- Mobile: -- Primary Care Provider: LA MADDOX MD Race: White Ethnicity: Not or Language: Cameroonian Health Plan: 1?MEDICAID ANTHEM ODM Reason for [...] alcohol and/or drug addiction problems; contact the [facility] 29/05 Crisis Hotline -Text 4HOPE to 672418. Follow-Up Information With: Address: When: LA MADDOX MD [facility] [address] [place] [address]/ [address] [place], [place] [id number] , only if needed Future Appointments No [...] 1.84 m2 Body Mass Index: 27.18 kg/m2 [place] Body Weight Calculated: 56.909 kg BSA Measured: [...] greater risk (more content not included)... Normal [facility] Patient Handouton 03-08-2024 Patient Handout Orthopedics Radicular [...] and rising up. ? Do strength and jsnmj-kd-xcautq exercises only as told by your health care provider or physical therapist. General instructions ? Take sztq-xsw-cwpomry and prescription medicines only as told by [...] provider. Document Revised: 04/28/2022 Document Reviewed: 04/28/2022 [employer] Patient Education ? 2022 [employer] Normal [facility] Ambulatory Patient Summaryon 01-18-2024 Ambulatory Patient Summary [address], [address] - Visit Summary For ALLA FRANCIS Age: 28 years Sex: FEMALE : 1995 Address: [address] [place] [address], [address] Home: Work: -- Mobile: -- Primary Care Provider: LA MADDOX MD Race: White Ethnicity: Not or Language: Cameroonian Health Plan: 1?MEDICAID ANTHEM ODM Reason for [...] alcohol and/or drug addiction problems; contact the [facility] 29/05 Crisis Hotline -Text 4HGUB kp 126128. Follow-Up Information With: Address: When: VARSHA CABRERA, LA Pugh [facility] [address] [place] [address] , only if needed Future Appointments No [...] Dosin.000 kg Body Mass Index: 27.55 kg/m2 [place] Body Weight Calculated: 56.909 kg BSA Measured: [...] these instructions at home: Medicines ? Take gbvy-vyn-evazaps and prescription medicines only as told by [...] ? Cannot control your cough with cough krishna (more content not included)... Normal [facility] Patient Handouton 01-18-2024 Patient Handout ENT Cough, [...] these instructions at home: Medicines ? Take sgio-vrq-iyqdevg and prescription medicines only as told by [...] a condition that needs treatment. ? Take muvw-giw-mqoirch and prescription medicines only as told by [...] provider. Document Revised: 11/11/2019 Document Reviewed: 11/11/2019 [employer] Patient Education ? 2022 [employer]. [facility] PAP ACOG PANEL 2: 21 to 29on 08-30-2021 . . Normal [facility] Comment on above: Performed By: #### [id number] #### [facility] [address] [address] [address] Jalyn Medrano Age Gdln ACOG Testing - [facility] Comment on above: Performed By: #### 4 [id number] #### [facility] [address] [address] [address] Jalyn Medrano DIAGNOSIS: Comment [facility] Comment on above: Result Comment: NEGA TIVE FOR INTRAEPITHELIAL LESION OR MALIGNANCY. Performed By: #### [id number] #### [facility] [address] [address] [address] Jalyn Medrano Methodology: Comment [facility] Comment on above: Result Comment: This liquid based ThinPrep(R) pap test was screened with the use of an image guided system. Performed By: #### 4 [id number] #### [facility] [address] [address] [address] Jalyn Medrano Note: Comment [facility] Comment on above: Result Comment: The Pap smear is a screening test designed to aid in the detection of premalignant and malignant conditions of the uterine cervix. It is not a diagnostic procedure and should not be used as the sole means of detecting cervical cancer. Both false-positive and false-negative reports do occur. . Performed By: #### 4 [id number] #### [facility] [address] [place] [address] Dr. Jalyn Medrano Performed by: Comment Normal [facility] Comment on above: Result Comment: Dorothea Francis, Secretary Of Police (ASCP) Performed By: #### 4 [id number] #### [facility] [address] [place] [address] Dr. Jlayn Medrano Reflex Criteria: Comment [facility] Comment on above: Result Comment: The HPV DNA reflex criteria were not met with this specimen result therefore, no HPV testing was performed. . Performed By: #### 4 [id number] #### [facility] [address] [place] [address] Dr. Jalyn Medrano Specimen adequacy: Comment Normal [facility] Comment on above: Result Comment: Sati sfactory for evaluation. Endocervical and/or squamous metaplastic cells (endocervical component) are present. Performed By: #### 4 [id number] #### [facility] [address] [place] [address] Dr. Jalyn Medrano Vital Signs Date Time Vital Sign Value Performing Clinician Faci lity 12-04-2024 09:36-0500 Body weight 83.01 kg Dorothea ALBERT Work Phone: [facility] 12-04-2024 09:36-0500 Diastolic blood pressure 54 mm[Hg] Dorothea ALBERT Work Phone: [facility] 12-04-2024 09:36-0500 Systolic blood pressure 104 mm[Hg] Dorothea ALBERT Work Phone: [facility] 11-21-2024 10:12-0500 Body weight 81.25 kg Shira Pascal DO Work Phone: [facility] 11-21-2024 10:12-0500 Diastolic blood pressure 52 mm[Hg] Shira Naida DO Work Phone: [facility] 11-21-2024 10:12-0500 Systolic blood pressure 106 mm[Hg] Shira Naida DO Work Phone: [facility] 10-31-2024 10:57-0500 Body height 167.6 cm Barron Roman MD Work Phone: [facility] 10-31-2024 10:57-0500 Body mass index (BMI) [Ratio] 28.42 kg/m2 Barron Roman MD Work Phone: [facility] 10-31-2024 10:57-0500 Body weight 79.83 kg Barron Roman MD Work Phone: [facility] 10-31-2024 10:57-0500 Diastolic blood pressure 79 mm[Hg] Barron Roman MD Work Phone: [facility] 10-31-2024 10:57-0500 Heart rate 82 /min Barron Roman MD Work Phone: [facility] 10-31-2024 10:57-0500 Systolic blood pressure 124 mm[Hg] Barron Roman MD Work Phone: [facility] 10-22-2024 10:49-0500 Body weight 79.38 kg Dorothea ALBERT Work Phone: [facility] 10-22-2024 10:49-0500 Diastolic blood pressure 70 mm[Hg] Dorothea ALBERT Work Phone: [facility] 10-22-2024 10:49-0500 Systolic blood pressure 118 mm[Hg] Dorothea ALBERT Work Phone: [facility] 09-23-2024 09:55-0500 Body weight 76.66 kg Shira Naida DO Work Phone: [facility] 09-23-2024 09:55-0500 Diastolic blood pressure 68 mm[Hg] Shira Naida DO Work Phone: [facility] 09-23-2024 09:55-0500 Systolic blood pressure 118 mm[Hg] Shira Naida DO Work Phone: [facility] 08-27-2024 11:12-0400 Body weight 75.66 kg Shira Naida DO Work Phone: [facility] 08-27-2024 11:12-0400 Diastolic blood pressure 64 mm[Hg] Shira Naida DO Work Phone: [facility] 08-27-2024 11:12-0400 Systolic blood pressure 112 mm[Hg] Shira Naida DO Work Phone: [facility] 07-26-2024 09:55-0400 Body weight 75.21 kg Noms Nurse [facility] 07-26-2024 09:55-0400 Diastolic blood pressure 60 mm[Hg] Noms Nurse [facility] 07-26-2024 09:55-0400 Systolic blood pressure 120 mm[Hg] [facility] Nurse [facility] Encounters Encounter Date Encounter Type Care Provider Facility Start: 12-04-2024 End: 12-04-2024 Bamboo flowsheet Dorothea ALBERT Work Phone: [facility] Start: 12-04-2024 End: 12-04-2024 Bamboo flowsheet Dorothea ALBERT Work Phone: [facility] Start: 12-04-2024 End: 12-04-2024 ambulatory DOROTHEA BLEVINS Not Available Start: 12-04-2024 End: 12-04-2024 Office outpatient visit 15 minutes Dorothea ALBERT Work Phone: [facility] Comment on above: Second trimester pre gnancy; 27 weeks gestation of Start: 11-21-2024 End: 11-21-2024 Bamboo flowsheet Shira Naida DO Work Phone: [facility] Start: 11-21-2024 End: 11-21-2024 Bamboo flowsheet Shira Naida DO Work Phone: [facility] Start: 11-21-2024 End: 11-21-2024 ambulatory SHIRA NAIDA Not Available Start: 11-21-2024 End: 11-21-2024 Office outpatient visit 15 minutes Shira Pascal DO Work Phone: [facility] Comment on above: Diabetes mellitus sc reening; Second trimester ; 26 weeks gestation of Start: 11-04-2024 End: 11-08-2024 Telephone encounter Shira Pascal DO Work Phone: [facility] Start: 10-31-2024 End: 11-08-2024 Chart abstracting Kelly Garcia [facility] M[facility]- Medicine at [facility] Comment on above: Pyelectasis of fetus on ultrasound (Primary Dx) Start: 10-31-2024 End: 11-01-2024 Evaluation and management of inpatient HALLE Pugh BATEMAN [facility] Start: 10-31-2024 End: 10-31-2024 Office outpatient new 60 minutes Barron Roman MD Work Phone: [facility]- Medicine at [facility] Comment on above: Short cervix affecti ng (Primary Dx); Pyelectasis of fetus on ultrasound; History of thrombocytopenia; Benign gestational thrombocytopenia in second trimester ([facility]); 23 weeks gestation of Start: 10-31-2024 End: 10-31-2024 ambulatory SHIRA PASCAL [facility] Start: 10-22-2024 End: 10-22-2024 Bamboo flowsheet Dorothea ALBERT Work Phone: [facility] Start: 10-22-2024 End: 10-22-2024 Bamboo flowsheet Dorothea ALBERT Work Phone: [facility] Start: 10-22-2024 End: 10-22-2024 ambulatory DOROTHEA BLEVINS Not Available Start: 10-22-2024 End: 10-22-2024 Office outpatient visit 15 minutes Dorothea ALBERT Work Phone: [facility] Comment on above: Second trimester pre gnancy; 21 weeks gestation of ; Encounter for screening for cervical length Start: 09-23-2024 End: 09-23-2024 Bamboo flowsheet Shira Naida DO Work Phone: [facility] Start: 09-23-2024 End: 10-01-2024 Bamboo flowsheet Shira Naida DO Work Phone: [facility] Start: 09-23-2024 End: 10-01-2024 Clinisync Result Encounter Shira Naida DO Work Phone: [facility] Department Unsolicited Start: 09-23-2024 End: 09-23-2024 Office outpatient visit 15 minutes Shira Naida DO Work Phone: [facility] Comment on above: Well woman exam with routine gynecological exam; Screening, , for anatomic survey; Second trimester ; Exposure to STD Start: 09-23-2024 End: 09-23-2024 Patient encounter procedure Shira Naida DO Work Phone: [facility] Start: 09-23-2024 End: 09-23-2024 ambulatory SHIRA [...] 08-23-2024 End: 08-23-2024 ambulatory SHIRA R NAIDA [facility] Start: 07-26-2024 End: 07-26-2024 Office outpatient visit 5 minutes [facility] Naida Nurse [facility] Comment on above: GA: 9w1d Start: 07-26-2024 End: 07-26-2024 ambulatory DOROTHEA BLEVINS Not Available Start: 06-21-2024 End: 06-21-2024 ambulatory SHIRA PASCAL [facility] Start: 06-19-2024 End: 06-19-2024 ambulatory LA MADDOX [facility] Start: 06-18-2024 End: 06-18-2024 ambulatory OBIE FRAGOSO [facility] Start: 03-08-2024 End: 03-08-2024 ambulatory LA MADDOX MD Facility:[facility] Start: 02-07-2024 End: 02-07-2024 ambulatory SHIRA PASCAL Not Available Start: 01-18-2024 End: 01-18-2024 ambulatory LA MADDOX MD Facility:[facility] Start: 08-25-2021 End: 08-25-[address] SHIRA PASCAL Facility: Procedures Date Procedure Procedure Detail Performing Clinician Start: 12-04-2024 Urnls dip stick/tabl et rgnt non-auto w/o micrscp Dorothea ALBERT Work Phone: Start: 11-21-2024 Urnls dip stick/tabl et rgnt non-auto w/o micrscp Shira Naida DO Work Phone: Start: 09-23-2024 Urnls dip stick/tabl et rgnt non-auto w/o micrscp Shira Naida DO Work Phone: Start: 09-23-2024 IGP,APTIMA HPV,AGE GDLN Shira Naida DO Work Phone: Start: 09-23-2024 Microscopic observat ion [Identifier] in Cervix by Cyto stain Dorothea ALBERT Work Phone: Start: 07-26-2024 Urnls dip stick/tabl et rgnt non-auto w/o micrscp Shira Naida DO Work Phone: Plan of Treatment Date Care Activity Detail Author Start: 09-23-2027 Screening for malign ant neoplasm of cervix [facility] Start: 10-31-2025 Adult BMI Screening Adult BMI Screen ing [facility] Start: 10-31-2025 Tobacco Screening Tobacco Screening [facility] Start: 10-31-2025 End: 10-31-2025 US MFM with or without consult US MFM with or without consult Imaging Routine Pyelectasis of fetus on ultrasound Expected: 10/31/2025 (Approximate), Expires: 10/31/2025 [facility] Work Phone: Comment on above: Expected: 10/31/2025 (Approximate), Expires: 10/31/2025 Start: 12-18-2024 End: 12-18-2024 Patient encounter procedure 12/18/2024 11:20 AM EST Routine [facility] [address] [place] [id number] Shira Pascal, DO [address] [place], [place] [id number] [facility] Start: 12-05-2024 End: 12-05-2024 Patient encounter procedure [facility] Imaging Start: 11-21-2024 End: 11-21-2025 CBC panel - Blood by Automated count CBC Lab Routine Diabetes mellitus screening Expected: 11/21/2024 (Approximate), Expires: 11/21/2025 [facility] Work Phone: Comment on above: Expected: 11/21/2024 (Approximate), Expires: 11/21/2025 Start: 11-21-2024 End: 11-21-2025 Measurement of glucose 1 hour after glucose challenge for glucose tolerance test Glucose tolerance, 1 hour Lab Routine Diabetes mellitus screening Expected: 11/21/2024 (Approximate), Expires: 11/21/2025 [facility] Comment on above: Expected: 11/21/2024 (Approximate), Expires: 11/21/2025 Start: 11-21-2024 End: 11-21-2024 Patient encounter procedure 11/21/2024 9:50 AM EST Routine [facility] [address] [place] [id number] Shira Pascal, DO [address] [place] [address] [facility] Start: 10-31-2024 End: 10-31-2024 Patient encounter procedure 10/31/2024 10:30 AM EST Office Visit Maternal- Medicine at [facility] [address] [place] [facility] [place] [address] Barron Roman MD [address] [facility], [address] [place] [address] Arrived [facility]- [facility] at [facility] Comment on above: Arrived Start: 10-28-2024 End: 10-28-2024 Professional / ancillary services management 10/28/2024 8:00 AM EST Ancillary Procedure [facility] [address] [address] [facility] Start: 10-22-2024 End: 10-22-2025 US Pelvis transvaginal US OB transvaginal Imaging Routine Encounter for screening for cervical length Expected: 10/22/2024 (Approximate), Expires: 10/22/2025 [facility] Work Phone: Comment on above: Expected: 10/22/2024 (Approximate), Expires: 10/22/2025 Start: 10-22-2024 End: 10-22-2024 Patient encounter procedure 10/22/2024 10:30 AM EST Routine [facility] [address] [place] [phone] Dorothea Blevins PA [address] [place] [address] [facility] Start: 10-14-2024 End: 10-14-2024 Professional / ancillary services management 10/14/2024 11:00 AM EST Ancillary Procedure [facility] [address] [place] [id number] [facility] Start: 09-23-2024 Adult BMI Screening Adult BMI Screen ing [facility] Start: 09-23-2024 End: 10-23-2024 Alpha fetoprotein, maternal Alpha fetoprotein, maternal Lab Routine Screening, , for anatomic survey Expected: 09/23/2024 (Approximate), Expires: 10/23/2024 [facility] Comment on above: Expected: 09/23/2024 (Approximate), Expires: 10/23/2024 Start: 09-23-2024 Tobacco Screening Tobacco Screening [facility] Start: 09-23-2024 End: 09-23-2025 US for US OB ANATOMY SINGLE W US OB CERVICAL LENGTH Imaging Routine Screening, , for anatomic survey Expected: 09/23/2024 (Approximate), Expires: 09/23/2025 [facility] Comment on above: Expected: 09/23/2024 (Approximate), Expires: 09/23/2025 Start: 09-23-2024 End: 09-23-2024 Patient encounter procedure 09/23/2024 9:30 AM EST Routine [facility] [address] [place] [id number] Shira Pascal, [address] [place] [address] [facility] Start: 08-27-2024 End: 08-27-2024 Patient encounter procedure [facility] Comment on above: Arrived Start: 07-26-2024 End: 07-26-2025 ABO/Rh ABO/Rh Lab Routine Missed menses Expected: 07/26/2024 (Approximate), Expires: 07/26/2025 [facility] Comment on above: Expected: 07/26/2024 (Approximate), Expires: 07/26/2025 Start: 07-26-2024 End: 07-26-2025 Blood type and Indirect antibody screen panel - Blood Type and screen Lab Routine Missed menses Expected: 07/26/2024 (Approximate), Expires: 07/26/2025 [facility] Work Phone: Comment on above: Expected: 07/26/2024 (Approximate), Expires: 07/26/2025 Start: 07-26-2024 End: 07-26-2025 Drugs of abuse panel - Urine by Screen method Rapid drug screen, urine Lab Routine Encounter for supervision of normal first in first trimester , unspecified gestational age Expected: 07/26/2024 (Approximate), Expires: 07/26/2025 [facility] Comment on above: Expected: 07/26/2024 (Approximate), Expires: 07/26/2025 Start: 07-26-2024 End: 07-26-2025 US Pelvis transvaginal US OB transvaginal Imaging Routine Missed menses Expected: 07/26/2024 (Approximate), Expires: 07/26/2025 [facility] Comment on above: Expected: 07/26/2024 (Approximate), Expires: 07/26/2025 Start: 07-07-2024 Influenza vaccination [facility] Start: 2024 Screening for malign ant neoplasm of cervix [facility] Start: 2015 Screening for malign ant neoplasm of cervix Pap Smear [facility] Start: 2013 DTaP,Tdap and Td Vaccines (1 - Tdap) DTaP,Tdap and Td Vaccines (1 - Tdap) [facility] Start: 2012 Adult BMI Follow Up Plan Adult BMI Follow Up Plan [facility] Start: 2006 Depression Screening Depression Scre ening [facility] Bacteria identified in Urine by Culture Urine culture Microbiology Routine Missed menses Ordered: 07/26/2024 [facility] Comment on above: Ordered: 07/26/2024 CBC W Auto Different ial panel - Blood CBC and differential Lab Routine Missed menses Ordered: 07/26/2024 [facility] Comment on above: Ordered: 07/26/2024 CHLAMYDIA TRACHOMATI S (GENITO/STI) CHLAMYDIA TRACHOMATIS (GENITO/STI) Lab Routine Exposure to STD Ordered: 09/23/2024 [facility] Comment on above: Ordered: 09/23/2024 Cytology Cervical or vaginal smear or scraping study Pap Smear Pathology and Cytology Routine Well woman exam with routine gynecological exam Ordered: 09/23/2024 [facility] Work Phone: Comment on above: Ordered: 09/23/2024 Hemoglobin A1c/Hemoglobin.total in Blood Hemoglobin A1c Lab Routine Missed menses Ordered: 07/26/2024 [facility] Comment on above: Ordered: 07/26/2024 Hepatitis B virus surface Ag [Presence] in Serum or Plasma by Immunoassay Hepatitis B surface antigen Lab Routine Missed menses Ordered: 07/26/2024 [facility] Comment on above: Ordered: 07/26/2024 Hepatitis C virus Ab [Presence] in Serum or Plasma by Immunoassay Hepatitis C antibody Lab Routine Missed menses Ordered: 07/26/2024 [facility] Comment on above: Ordered: 07/26/2024 HIV-1/HIV-2 antigen/antibody combination immunoassay HIV-1 and HIV-2 antibodies Lab Routine Missed menses Ordered: 07/26/2024 [facility] Comment on above: Ordered: 07/26/2024 Human papilloma viru s DNA [Presence] in Unspecified specimen by Probe with amplification HPV DNA probe, amplified Microbiology Routine Well woman exam with routine gynecological exam Ordered: 09/23/2024 [facility] Comment on above: Ordered: 09/23/2024 Neisseria gonorrhoea e DNA [Presence] in Unspecified specimen by MICHELLE with probe detection Neisseria gonorrhea DNA probe, direct Lab Routine Exposure to STD Ordered: 09/23/2024 [facility] Comment on above: Ordered: 09/23/2024 Reagin Ab [Presence] in Serum by RPR RPR Lab Routine Missed menses Ordered: 07/26/2024 [facility] Comment on above: Ordered: 07/26/2024 Rubella antibody, IgG Rubella an tibody, IgG Lab Routine Missed menses Ordered: 07/26/2024 [facility] Comment on above: Ordered: 07/26/2024 SURESWAB(R) ADVANCED VAGINITIS PLUS, TMA SURESWAB(R) ADVANCED VAGINITIS PLUS, TMA Pathology and Cytology Routine Exposure to STD Ordered: 09/23/2024 [facility] Comment on above: Ordered: 09/23/2024 Payers Date Payer Category Payer Medicaid [id number] 2022 Medicaid [id number] 1995 Unknown [id number] 2.16.84 [id number] 1995 Unknown [id number] 2.16.8 40.1.193537.3.579.2.1286 1995 Unknown [id number] 2.16.8 40.1.797289.3.579.2.1286 1995 Unknown [id number] 2.16.8 40.1.741536.3.579.2.128 1995 Unknown [id number] 2.16.8 40.1.158623.3.579.2.1286 1995 Unknown [id number] 2.16.8 40.1.780163.3.579.2.718 1995 Unknown [id number] 2.16.8 40.1.821155.3.579.2.718 1995 Unknown [id number] 2.16.8 40.1.705409.3.579.2.128 1995 Unknown [id number] 2.16.8 40.1.662933.3.579.2.1286 1994 Unknown [id number] 2.16.8 40.1.996508.3.579.2.1286 1994 Unknown [id number] 2.16.84 0.1.522630.3.579.2.1259 1994 Unknown [id number] 2.16.84 [id number] 1995 Unknown [id number] 2.16.84 [id number] 1994 Unknown [id number] 2.16.84 [id number] 1994 Unknown [id number] 2.16.84 [id number] 1994 Unknown [id number] 2.16.84 [id number] 1994 Unknown [id number] 2.16.84 [id number] 1959 Unknown [id number] Social History Date Type Detail Facility Tobacco smoking stat [facility] Tobacco smoking consumption unknown [facility] Start: 06-06-2024 [facility] Start: 1995 Sex assigned at Not on file [facility] Start: 12-17-2020 End: 10-31-2024 Gender identity Not on file [facility] Start: 03-13-2017 Tobacco smoking stat [facility] Never smoked tobacco [facility] Start: 03-13-2017 Tobacco use and exposure Smokeless tobacco non-user [facility] Start: 10-31-2024 Alcoholic beverage intake Current non-drinker of alcohol (finding) [facility] Start: 12-17-2020 End: 10-31-2024 History of Social function [facility] Childcare Unknown [facility] Start: 06-11-2015 Sex Female (finding) [facility] Clinical Notes 07-26-2024 to 12-04-2024 BETY Chacon - 12/04/2024 9:30 AM Salma Goins [facility] - 11/21/2024 9:50 AM ESTTelephone Encounter - Mary Grace Dumas [employer] - 11/04/2024 2:35 PM Aletha Roman MD - 10/31/2024 10:30 AM EST Note Date & Type Note Facility 12-04-2024 History of Presen t illness Narrative Reason for Appointment: Patient ID: Alla Francis is a 29 y.o. female who presents for Routine Visit Patient presents today for Return OB appointment. MEDICATIONS Current Outpatient Medications Medication Instructions escitalopram (Lexapro) 10 MG tablet TAKE 1 TABLET BY MOUTH ONCE DAILY Oral for 30 Days ferrous sulfate 325 mg, Daily with breakfast MV-Min-Fe Fum-FA-DHA ( 1 PO) 1 each, Oral, Daily ALLERGIES Allergies Allergen Reactions Penicillins Itching, Rash and Swelling Amoxicillin Other Reaction(s): Unknown Penicillin G PROBLEMS Active Ambulatory Problems Diagnosis [...] SYSTEMS Review of Systems: Review of Systems OBJECTIVE Objective: OBGyn Exam Vitals: There is no height or weight on file to calculate BMI. BP: Patient's last menstrual period was 05/23/2024. ASSESSMENT & PLAN ICD-10-CM 1. Second trimester Z34.92 POCT urinalysis dipstick manually resulted 2. 27 weeks gestation of Z3A.27 Return OB: Patient presents today for a routine obstetrics appointment. Patient is currently 27w6d . Patient states she is doing well but has complaints of being tired due to current . Patient has verbalizes frequent movement. labor precautions was discussed/given and patient was instructed to perform kick counts three times a day. Orders Placed This Encounter Procedures POCT urinalysis dipstick manually resulted Follow Up: Patient is to return to office in 2 week for routine OB appointment. Documented by Indigo Stafford MA on behalf of: BETY Chacon documented in this encounter [facility] 11-21-2024 History of Presen t illness Narrative Reason [...] nursing note reviewed. Exam conducted with a tree deadener present. Vitals: There is no height or weight on file to calculate BMI. BP: 106/52 Patient's last menstrual period was 05/23/2024. ASSESSMENT & PLAN ICD-10-CM 1. Diabetes mellitus screening Z13.1 CBC Glucose tolerance, 1 hour CBC Glucose tolerance, 1 hour 2. Second trimester Z34.92 3. 26 weeks gestation of Z3A.26 POCT urinalysis dipstick manually resulted Patient presents today for a routine obstetrics appointment. Patient is currently 26w0d with a Estimated Date of Delivery: 02/27/25. Patient given orders for 1hour gtt and CBC to be drawn. Patient to return to clinic in 2 weeks for routine OB care. Patient has MFM appointment on the of this month. Documented by Anjana Goins LPN on behalf of: Shira Pascal DO documented in this encounter [facility] 11-04-2024 Telephone encounter Note MFM called the office to give update on patient admit fr the short cervix and that she declined the cerclage and was discharged home with no labor symptoms. Patient called the office and updated after her MFM ultrasound and that she did have to be admitted and they did ask for a Cerclage and she declined to have this done went through the risk and benefit. Patient states she was advised this was only a 5 day window to get if needed and that if baby wants to come baby will come. Patient state that she was fingertip dilated not having any symptoms. Patient was advised of no stimulation that could cause contractions and that she will need to follow up with MFM for her anatomy scan and she does have an appointment with Dr on 11/21/2023 and if she should chagne anything or if she needs to be in sooner. Patient states that MFM is not going to do Cervical checks on her anymore they will be checking to see if dilated. Patient was advised if anything changes any new feelings of discomfort or not normal to head in for eval. PVU [facility] 11-04-2024 Miscellaneous Notes MFM called the office to give update on patient admit fr the short cervix and that she declined the cerclage and was discharged home with no labor symptoms. Patient called the office and updated after her MFM ultrasound and that she did have to be admitted and they did ask for a Cerclage and she declined to have this done went through the risk and benefit. Patient states she was advised this was only a 5 day window to get if needed and that if baby wants to come baby will come. Patient state that she was fingertip dilated not having any symptoms. Patient was advised of no stimulation that could cause contractions and that she will need to follow up with MFM for her anatomy scan and she does have an appointment with Dr on 11/21/2023 and if she should chagne anything or if she needs to be in sooner. Patient states that MFM is not going to do Cervical checks on her anymore they will be checking to see if dilated. Patient was advised if anything changes any new feelings of discomfort or not normal to head in for eval. PVU documented in this encounter [facility] 10-31-2024 History of Presen t illness Narrative [facility] Consult Note Reason For Consult: HPI: Alla Francis is a 29 y.o. @ 23w0d who presented for consultation from Shira Diaz DO regarding Chief Complaint Patient presents with funneling of the internal cervial cervix measuring 1.0 cm in length She reports that she is doing well. She reports normal movements and she denies LOF, contractions, vaginal bleeding, headache, blurry vision, RUQ pain and edema. The primary encounter diagnosis was Short cervix affecting . Diagnoses of Pyelectasis of fetus on ultrasound, History of thrombocytopenia, Benign gestational thrombocytopenia in second trimester ([facility]), and 23 weeks gestation of were also pertinent to this visit. She has opted out of aneuploidy screening Review of systems: Review of systems was noncontributory Complications: Problem List Items Addressed This Visit None Visit Diagnoses Short cervix affecting - Primary Pyelectasis of fetus on ultrasound History of thrombocytopenia Benign gestational thrombocytopenia in second trimester ([facility]) 23 weeks gestation of PMH: Past Medical History: Diagnosis Date Anxiety Depression Thrombocytopenia affecting ([facility]) 11/06/2012 PSHIST: History reviewed. No pertinent surgical history. OB Hx: OB History Para Term AB Living 3 2 2 2 SAB IAB Ectopic Multiple Live Births 2 # Outcome Date GA Lbr Pascual/2nd Weight Sex Type Anes PTL Lv 3 Current 2 Term 06/09/16 37w6d 2.75 kg M Vag-Spont EPI N GRACIELA 1 Term 2013 38w0d 3.175 kg M Vag-Spont EPI N GRACIELA Comments: Gestational thrombocytopenia PREECLAMPSIA SCREEN ([place] Preventive Services Task Force) Patient is at high risk if 1 or more factors present. Incidence of preeclampsia is >= 8%: Prior preeclampsia NO Multiple gestation NO Chronic hypertension NO Type 1 or 2 diabetes NO Renal disease NO Autoimmune disease NO (Lupus, APLS) Patient is at moderate risk is several risk factors are present: Nulliparity NO Obesity (BMI >= 30) NO Family history of preeclampsia {NO (Mother, sister) NO Sociodemographic characteristics NO (AA, low socioeconomic status) Age >= 35 NO Personal history factor NO (Previous SGA, adverse outcome, > 10 years from last ) Allergies: Allergies Allergen Reactions Penicillins Rash Meds: Prior to Admission medications Medication Sig Start Date End Date Taking? Authorizing Provider levonorgestrel (MIRENA) 20 mcg/24 hr (5 years) IUD 1 each by intrauterine route once. Not In System Ref Prov SH: Social History Socioeconomic History Marital status: Single Spouse name: Not on file Number of children: Not on file Years of education: Not on file Highest education level: Not on file Occupational History Not on file Tobacco Use Smoking status: Never Smokeless tobacco: Never Vaping Use Vaping status: Every Day Substances: Nicotine Substance and Sexual Activity Alcohol use: No Drug use: No Sexual activity: Yes Partners: Male control/protection: I.U.D. Comment: Current partner since 2011; Mirean IUD placed 08/01/2016 Other Topics Concern Not on file Social History Narrative Not on file Social Drivers of Health Financial Resource Strain: Not on file Food Insecurity: No Food Insecurity (10/22/2022) Hunger Screening Food Insecurity - Worry: Never True Food Insecurity - Inability: Never True Transportation Needs: Not on file Physical Activity: Not on file Stress: Not on file Social Connections: Not on file Interpersonal Safety: Not on file Housing Instability: Not on file Physical Exam: Vital Signs Vitals: 10/31/24 1057 BP: 124/79 BP Site: Left Arm BP Postition: Lying Pulse: 82 Weight: 79.8 kg (176 lb) Height: 167.6 cm (5' 5.98 ) Physical Exam: Gen: Not in acute distress, alert and oriented. Eyes: Pupils equal and reactive Chest: Nonlabored breathing Cardiac: Pulse was regular on vital signs assessment Abdomen: Gravid Skin/extremities: Appears intact. No visible lesions MS:no visible edema Neuro: No focal deficits Assessment/Plan 29 y.o. @ 23w0d here for consultation regardin. Short cervix affecting The incidental finding of a short cervix is associated with an increased risk of delivery in nulliparous women and individuals without a history of and several randomized trials have shown that vaginal progesterone treatment reduces the risk of in these patients. Screening of cervical length with serial endovaginal ultrasonography is not indicated in individuals without a prior . Reviewed sonographic assessment that is consistent with a shortened cervical length. She denies any signs or symptoms of labor, PPROM or vaginal bleeding. Precautions were given. She was started on vaginal progesterone by Dr. Pascal. Upon reviewing the dose it was 100 mg q.h.s.. She did have serial cervical length evaluation and it appeared that she had some shortening of her cervix progressively. Also reports abdominal cramping that is in her lower abdomen as well as pelvic pressure. Reports that she was told that this is round ligament pain however it does occur at rest as well. She denies any leakage of fluid or vaginal bleeding. Reports normal movements. That her cervical length today is measuring 0.8 cm. It appears that the cervix is closed by ultrasound however a speculum exam would be helpful to evaluate for cervical dilation. In addition to that in view of the abdominal pain that she was describing recommend evaluation for contractions/ labor. Patient was sent to OB ED for further assessment and to monitor for contractions. We also discussed the increased risk for rupture of membranes. labor and rupture of membrane precautions given. Reviewed with her periviable and its implications from an OB standpoint. Further discussions will be held with NICU regarding outcomes at the cusp of viability. She was counseled that being clinically stable at this time would allow her to have adequate time to process the information needed to make an informed decision. However, delivery may occur quickly in some cases, precluding adequate time for full discussion of all options and expectations before . She vocalized understanding. She was tearful. We also discussed that since she has a multiple risk she might have a dilated cervix without however not at this gestational age especially with the symptoms that she was having with pelvic pressure and abdominal pain. Discussed with the patient that while delivery does not seem imminent at this time, decisions need to be made regarding desired interventions and whether or not the patient desires resuscitation should delivery occur. We discussed the use of betamethasone (2 doses, 24h apart) to enhance lung maturity and decrease the risk of IVH and NEC. We discussed infusion of magnesium sulfate to reduce, but not eliminate, the risk of severe cerebral palsy. We also discussed monitoring and the potential implications of intervention for non reassuring status. We discussed that this would likely mean a classical delivery, which would require delivery by repeat section at 36w in all subsequent pregnancies. 2. Pyelectasis of fetus on ultrasound Urinary Tract Dilation: Several terms have been used to describe Urinary Tract Dilation (UTD), including pyelectasis, pelviectasis, and hydronephrosis. UTD by the consensus statement is when anterior-posterior renal pelvis diameter, with <4 mm being normal between 16 and 27 weeks of gestation and <7 mm being normal between 28 weeks of gestation and delivery. The additional ultrasound features to be evaluated include the presence of calyceal dilation, parenchymal thickness and appearance, ureteral dilation, bladder abnormalities, and amniotic fluid volume. The complete evaluation of the urinary tract results in the classification of A1 (low risk) vs A2-3 (increased risk) UTD, which guides management and follow-up. UTD occurs in 1% to 2% of pregnancies and is most commonly a transient finding that is a normal variant. UTD may indicate renal or urinary tract pathology and may also be a marker of trisomy 21. The association between trisomy 21 and UTD has been well described in several series, and the finding of UTD confers a positive LR of 1.5, suggesting a minimal risk. For people with no previous aneuploidy screening and isolated UTD, we recommend counseling to estimate the probability of trisomy 21 and a discussion of options for noninvasive aneuploidy screening with cfDNA or quad screen if cfDNA is unavailable or cost prohibitive. Although any patient may request diagnostic testing for any indication, we do not recommend diagnostic testing solely for this indication. For people with negative serum or cfDNA screening results and isolated UTD, we recommend no further aneuploidy evaluation. UTD between 4 and 7 mm in the second trimester of resolves in approximately 80% of cases.89 Consistent with the 2014 consensus statement, for fetuses with isolated UTD A1, we recommend an ultrasound examination at >=32 weeks of gestation to determine if pediatric urology or nephrology follow-up is needed. For fetuses with UTD A2-3, we recommend an individualized follow-up ultrasound assessment with planned follow-up. In a minority of cases, UTD has a pathologic cause. Common pathologic causes include vesicoureteral reflux (the most common etiology), ureteropelvic junction obstruction, ureterovesical junction obstruction, multicystic dysplastic kidneys, and posterior urethral valves. Although some conditions can be diagnosed antenatally, in most cases, the diagnosis is made postnatally. At the time of delivery, the diagnosis of UTD A1 or A2-3 should be communicated with the pediatric provider. She declines cell free aneuploidy screen that was low risk for trisomy 21, 13, and 18. Recommendations: Ultrasound examination at >=32 weeks of gestation to determine if pediatric urology or nephrology follow-up is needed 3. History of thrombocytopenia 4. Benign gestational thrombocytopenia in second trimester ([facility]) She reports that she had low platelets with her prior pregnancies. She was diagnosed with gestational thrombocytopenia as they normalized. Of note her sister was present with her today and also noted history of gestational thrombocytopenia. Her last platelet count was in August and was within normal though on the lower limit of normal. Recommend repeat CBC today. 5. 23 weeks gestation of Plan of care: -evaluation in OB EC with a speculum exam to assess for cervical dilation as well as to obtain cultures -UA urine culture -neonatology consultation, appreciate input. -Patient desires full resuscitation after discussion regarding cintia viability. corticosteroids to be administered accordingly and she is a candidate for magnesium sulfate for neuro protection -admit for observation. -continue vaginal progesterone 200 mcg q.h.s. -if she meets criteria for exam indicated cerclage and she is not having contractions then would be a candidate for cerclage accordingly. We will have to revisit if patient desires to proceed with cerclage accordingly. All risks benefits and alternatives were discussed with her including risk of rupture of membranes, loss of the , risk of delivery, as well as risk of infection and risk for need for cerclage removal and lacerations in especially if she starts having contractions. She vocalized understanding -lab work including CBC -further plan during the to follow accordingly Short cervix affecting [O26.879] Contacted charge account clerk as well as Dr. Funez, and she will discuss with Dr. Bateman. Please call me with any questions. Plan reviewed with patient. She vocalized understanding all questions answered. The patient is to continue with routine care in your office [facility], the CDC, and other organizations representing maternal and public health professionals recommend that , , and lactating people and those considering receive the COVID-19 vaccination. Vaccination is the best method to reduce maternal and complications of SARS-CoV-2 infection. This document was created with [employer] technology. Though I make every effort to review the dictation as it is transcribed, on occasion the spoken word can be misinterpreted by the technology leading to inappropriate words, phrases, or sentences. This note is addressed to the requesting provider as a consultation for clinical guidance. Specific medical abbreviations are occasionally used and those are generally approved by the [place]?Board of?Obstetrics and?Gynecology?as well as?Carlos Manuel houser abbreviations. The above plan of care was based solely on the diagnoses for which a consultation was requested. ?More frequent testing may be indicated based on her other medical/obstetrical conditions. The management of other or medical conditions is beyond the scope of requested consultation and will continue to be followed by the primary drill press operator for metal or primary care provider. Thank you for allowing me to participate in her care. Please contact me if you have any concerns. Total time spent was 60 minutes: Preparing to see the patient (e.g., review of tests) Obtaining and/or reviewing separately obtained history Performing a medically appropriate examination and/or evaluation Counseling and educating the patient/family/caregiver Ordering medications, tests, or procedures Referring and communicating with other health manager career (not separately reported) Documenting clinical information in the electronic or other health record Independently interpreting results (not separately reported) and communicating results to the patient/family/caregiver Care coordination (not separately reported) Headache/epigastric pain/blurry vision/swelling? no Cramping/contractions? Patient states she feels pressure throughout the day but not consistently. Abnormal vaginal discharge? no Spotting/vaginal bleeding? no Loss or gush of fluid like your water may have broken? no Do you have cats at home? yes Do you change the litter box (reason: risk of toxoplasmosis)? no Genetic testing done this here or other office? no Have you been seen here at [facility] in a previous ? no Recent ER visits or hospitalizations? no Bring blood sugar log or meter with you today? (Please bring them with you for every visit at [facility]) Flu vaccine (Sep-January)? no Any concerns that you would like me to mention to the provider today? no documented [facility] History of Presen t illness Narrative [...] of: BETY Chacon documented in this encounter [facility] 09-23-2024 History of Presen t illness Narrative [...] nursing note reviewed. Exam conducted with a tree deadener present. Vitals: There is no height or [...] Shira Pascal DO documented in this encounter [facility] 08-27-2024 History of Presen t illness Narrative [...] nursing note reviewed. Exam conducted with a tree deadener present. Vitals: There is no height or [...] or undercooked meat, and stay away from [facility]. Patient has been consulted regarding any further do's and don'ts of . Patient voiced understanding and all questions and concerns were answered. Follow Up: Patient is to return in 4 weeks for routine OB appointment. Documented by Cleo Kevin LPN on behalf of: Shira Pascal DO documented in this encounter [facility] 07-26-2024 History of Presen t illness Narrative [...] or undercooked meat, and stay away from [facility]. Patient has also been advised to not [...] Grace Dumas LPN documented in this encounter [facility] Evaluation note Diagnosis Second trimester state, incidental 13 weeks gestation of documented [facility]* Diagnosis Well woman exam with routine gynecological exam Routine gynecological examination Screening, , for anatomic survey Encounter for anatomic survey Second trimester state, incidental Exposure to STD documented in this encounter [facility]* Diagnosis Second trimester state, incidental 21 weeks gestation of Encounter for screening for cervical length documented [facility]* Diagnosis Missed menses Encounter for supervision of normal first in first trimester , unspecified gestational age Nausea Nausea alone documented [facility]* Diagnosis Short cervix affecting - Primary Cervical shortening, unspecified as to episode of care or not applicable Pyelectasis of fetus on ultrasound History of thrombocytopenia Benign gestational thrombocytopenia in second trimester ([facility]) 23 weeks gestation of [facility] Diagnosis Pyelectasis of fetus on ultrasound- Primary [facility] Diagnosis Second trimester state, incidental 27 weeks gestation of documented in [facility]* Diagnosis Diabetes mellitus screening Screening for diabetes mellitus Second trimester state, incidental 26 weeks gestation of documented in this encounter [facility] HealthcareInstructionsNot on filedocumented in this [facility] System[facility]ructionsNot on filedocumented in this [facility] System[facility]ructionsNot on filedocumented in this [facility]Pro[facility] Summary Purpose Family History No Family History Records FoundNo Family History Records FoundNo Family History Records FoundNo Family History Records FoundNo Family History Records Found Advance Directives No Advanced Directives Records Found Date Activated Date Inactivated Comments 10/31/2024 1:03 PM 11/01/2024 8:04 PM Additional Source Comments INFORMATION SOURCE (unrecogn ized section and content) DATE CREATED AUTHOR 09/11/2021 [facility] DATE CREATED AUTHOR AUTHOR'S ORGANIZ ATION 08/26/2024 [facility] DATE CREATED AUTHOR AUTHOR'S ORGANIZ ATION 10/30/2024 [facility] DATE CREATED AUTHOR AUTHOR'S ORGANIZ ATION 11/03/2024 [facility] DATE CREATED AUTHOR AUTHOR'S ORGANIZ ATION 12/06/2024 [facility] EPIC Care Teams (unrecognized sec tion and content) Elevator Constructor Electric Relationship Specialty Start Date End Date La Maddox MD [address] [place] [id number] PCP - General Family Medicine 02/05/24 Minoo Flores PA [address] [place] [address] PCP - DANIELA [facility] 05/06/24 Elevator Constructor Electric Relationship Specialty Start Date End Date La Maddox MD [address] [place] [phone] PCP - General Family Medicine 02/05/24 Minoo Flores PA [address] [place] [address] PCP - NOMBette [facility] 05/06/24 Elevator Constructor Electric Relationship Specialty Start Date End Date La Maddox MD [address] [place] [phone] PCP - General Family Medicine 02/05/24 Minoo Flores PA [address] [place] [address] PCP - NOMBette [facility] 05/06/24 Elevator Constructor Electric Relationship Specialty Start Date End Date La Maddox MD [address] [place] [phone] PCP - General Family Medicine 02/05/24 Minoo Flores PA [address] [place] [address] PCP - NOMBette [facility] 05/06/24 Elevator Constructor Electric Relationship Specialty Start Date End Date La Maddox MD [address] [place] [phone] PCP - General Family Medicine 02/05/24 Minoo Flores PA [address] [place] [address] PCP - NOMBette [facility] 05/06/24 Elevator Constructor Electric Relationship Specialty Start Date End Date La Maddox MD [address] [place] [id number] PCP - General Family Medicine 02/05/24 Minoo Flores PA [address] [place] [address] PCP - NOM[facility] 05/06/24 Elevator Constructor Electric Relationship Specialty Start Date End Date La Maddox MD [address] [place] [address] [id number] PCP - General Family Medicine 02/05/24 Minoo Flores PA [address] [place] [address] PCP - NOMBette [facility] 05/06/24 Elevator Constructor Electric Relationship Specialty Start Date End Date La Maddox MD [address] [place] [phone] PCP - General Family Medicine 02/05/24 Elevator Constructor Electric Relationship Specialty Start Date End Date La Maddox MD [address] [place] [phone] PCP - General Family Medicine 10/22/22 Elevator Constructor Electric Relationship Specialty Start Date End Date La Maddox MD [address] [place] [phone] PCP - General Family Medicine 10/22/22 Elevator Constructor Electric Relationship Specialty Start Date End Date La Maddox MD [address] [place] [address] [phone] PCP - General Family Medicine 10/22/22 Elevator Constructor Electric Relationship Specialty Start Date End Date La Maddox MD [address] [place] [address] [phone] PCP - General Family Medicine 02/05/24 Minoo Flores PA [address] [place] [address] PCP - NOM[facility] 05/06/24 Elevator Constructor Electric Relationship Specialty Start Date End Date La Maddox MD [address] [place] [phone] PCP - General Family Medicine 02/05/24 Minoo Flores PA [address] [place] [address] PCP - [facility] Tomás METCALF 05/06/24 Reason for Visit (unrecogniz ed section and content) Reason Comments Routine Visit Reason Comments Amenorrhea Reason Comments funneling of the internal cervial cervix measuring 1.0 cm in length FOR RECORDS PERTAINING TO PATIENTS WHO ARE [...] BE BASED ON THE PRIMARY CLINICAL RECORDS. [facility] [employer] [facility]. provides no warranty or guarantee of the accuracy or completeness of information in this document.
[2024-12-09 03:59] LABS: Hematocrit 30.9 % (36.0-48.0); Mean Corpuscular HGB Conc 35.6 g/dL (29.9-35.2); Mean Corpuscular Volume 89.8 fL (81.0-99.0); Mean Platelet Volume 12.3 fL (9.5-13.5); Platelet Count 157 10^3/uL (150-450); Red Blood Count 3.44 10^6/uL (4.20-5.40); Red Cell Distribution Width 12.9 % (11.0-15.0); White Blood Count 18.4 10^3/uL (4.0-11.0)
[2024-12-09] MEDS: 0.9 % SODIUM CHLORIDE 1,000 ML 999 ML IV (04:00)
[2024-12-09 04:16] LABS: Atypical Lymphocytes Abs Man 0.36; Basophils Abs Manual 0.18 10^3/uL (0.00-0.10); Monocytes Absolute Manual 1.47 10^3/uL (0.30-0.80); Segmented Neut Absolute Manual 15.27 10^3/uL (1.4-6.5)
[2024-12-09] MEDS: AMPICILLIN SODIUM 2,000 MG in 0.9 % SODIUM CHLORIDE 100 ML 200 MG IV (04:25)
[2024-12-09] MEDS: MAGNESIUM SULFATE IN WATER 2 GM/50 ML PREMIX IV (04:55)
[2024-12-09] MEDS: MAGNESIUM-BOLUS FROM THE BAG- 40 GM/1,000 ML IV.SOLN IV (04:55)
[2024-12-09] MEDS: OXYTOCIN/0.9 % SODIUM CHLORIDE 20 UNITS/1,000 ML PLAST..BAG 999 UNIT IV (05:21)
[2024-12-09] MEDS: NALBUPHINE HCL 10 MG/ML AMPULE IV (05:30)
--- NOTE | 2024-12-09 05:30 | PM.OBPRCVD ---
Procedure Induction method: none Delivery augmentation: rupture of membranes Delivery monitor: external FHT and external uterine Route of delivery: Episiotomy Description: none L&D Laceration Description: none Estimated blood loss (mL): 250 Anesthesia type: None Disposition: floor Delivery date: 12/09/24 Gender: female presentation: vertex Placental delivery description: Spontaneous cord description: 3 Vessels
[2024-12-09] MEDS: GLYCERIN/WITCH HAZEL PADS 1 PAD TOPICAL (11:31)
[2024-12-10 02:06] VITALS: BP 96/55; PULSE 72
[2024-12-10 06:49] LABS: Basophils Absolute Auto 0.1 10^3/uL (0.0-0.1); Basophils Percent Auto 0.4 % (0.2-2.0); Eosinophils Absolute Auto 0.1 10^3/uL (0.0-0.7); Eosinophils Percent Auto 0.9 % (0.9-7.0); Hematocrit 25.2 % (36.0-48.0); Hemoglobin 8.9 g/dL (12.0-16.0); Immature Granulocytes Abs Auto 0.07 10^3/uL (0.00-0.03); Immature Granulocytes Pct Auto 0.5 % (0.0-0.5); Lymphocytes Absolute Auto 3.6 10^3/uL (1.2-3.8); Lymphocytes Percent Auto 25.5 % (20.5-60.0); Mean Corpuscular HGB Conc 35.3 g/dL (29.9-35.2); Mean Corpuscular Hemoglobin 32.5 pg (26.7-34.0); Mean Platelet Volume 12.5 fL (9.5-13.5); Monocytes Absolute Auto 1.2 10^3/uL (0.3-0.8); Monocytes Percent Auto 8.5 % (1.7-12.0); Neutrophils Percent Auto 64.2 % (43.0-75.0); Platelet Count 166 10^3/uL (150-450); Red Blood Count 2.74 10^6/uL (4.20-5.40); Red Cell Distribution Width 13.2 % (11.0-15.0)
--- NOTE | 2024-12-10 07:39 | P.OBPN_ITS ---
OB - PN: Subj Subjective Patient comments: no complaints and pain well controlled [place] status: doing well Exam Constitutional Vital Signs, click to edit/add: Last Vital Signs Temp 98.1 F 12/09/24 17:15 Pulse 72 12/10/24 02:06 Resp 16 12/10/24 02:00 BP 96/55 12/10/24 02:06 O2 Del Method Room Air 12/10/24 02:00 Documenting provider has reviewed patient's vital signs: yes Common normals: no apparent distress Respiratory Common normals: clear to auscultation bilaterally Cardio Common normals: regular rate and regular rhythm GI Common normals: Normal to inspection, nondistended, normoactive bowel sounds present Extremity Common normals: no clubbing, cyanosis or edema and no calf tenderness Results Labs Labs: Short CBC 12/10/24 Range/Units 06:24 WBC 14.0 H (4.0-11.0) 10^3/uL Hgb 8.9 L (12.0-16.0) g/dL Hct 25.2 L (36.0-48.0) % Plt Count 166 (150-450) 10^3/uL OB - PN: A/P Plan - Vaginal Delivery day: 1 Time Spent with Patient Time: Total time spent is greater than 50% in coordination of care (as documented) at patient's floor/unit and/or counseling patient: Total time spent with greater than 50% in coordination of care (as documented) at patient's floor/unit and/or counseling patient: less than 15 minutes
[2024-12-10 07:57] VITALS: BP 118/59; PULSE 72
== END 2024-12-10 09:15 | disposition home or self-care (01) | DRG 560 ==
PROVIDERS: Admitting Provider Obstetrics & Gynecology; Visit Provider Obstetrics & Gynecology
DX: O60.14X0 Preterm labor third trimester with preterm delivery third trimester, not applicable or unspecified (principal); O26.873 Cervical shortening, third trimester; Z3A.28 28 weeks gestation of pregnancy; Z37.0 Single live birth
CPT/HCPCS: 36415; 59025; 85007; 85025; 85027; 86850; 86900; 86901; J0290; J2300; J3475